=== PATIENT | male | born 1980 | race Caucasian/White ===

== ENCOUNTER 2016-11-18 15:25 | Emergency (ER) | payer OTHER ==
[~2016-11-18] VITALS: Ht 154.9 cm; Wt 81.2 kg
[~2016-11-18 15:25] MED LIST: ALBUAER19 INH; BACL10TA PO; ESOM1CAP24 PO; HYDR-5688 PO; LEVO200T6 PO; SYMIN160 INH; VLT/75 PO
[2016-11-18 15:29] VITALS: TEMP 36.8; Ht 154.9 cm; Wt 81.2 kg
[2016-11-18] MEDS ORDERED: XYLOCAINE 1%/SOD BICARB 20 ML VIAL INFIL ONE (16:00)
[2016-11-18] MEDS ORDERED: SULF800T23 PO (16:48)
[2016-11-18] MEDS ORDERED: HYDR-5688 PO (16:48)
--- NOTE | 2016-11-18 16:50 | EMERGENCY ROOM VISIT NOTE ---
ED Visit Note First contact with patient: 15:41 CHIEF COMPLAINT: Infection of the groin HISTORY OF PRESENT ILLNESS: This 36-year-old male patient presents to the emergency department ambulatory complaining of swelling to the right groin 2 days. The patient notes that there is a boil in the right side of the groin. It has been gradually becoming more painful and red. It is slightly hard to touch. There has been no drainage. The patient states that he felt febrile yesterday, but did not take his temperature. There was no injury to the area preceding the infection. They rate the pain as sharp and 7/10. Tetanus shot is up to date. He has tried warm compresses with no relief. The patient is not diabetic. The patient has no history of subcutaneous abscesses. REVIEW OF SYSTEMS: A review of systems was performed with positives and pertinent negatives listed in the history of present illness. All other systems were reviewed and are negative. ALLERGIES: Latex MEDICATIONS: See med list PMH: Hypothyroidism SOCIAL HISTORY: The patient lives locally. PHYSICAL EXAM: Vital Signs: Reviewed Nurse's notes, vital signs stable. GENERAL : This is a 36-year-old male, no acute distress, non toxic in appearance, well- developed well-nourished. SKIN: There is an erythematous indurated area in the right inguinal region which measures about 1.5 cm cm in diameter. It is fluctuant but there is no pointing or drainage. There is a zone of inflammation around it but no lymphangitis. Capillary refill less than 2 seconds. MUSCULOSKELETAL: There is no limitation of the range of motion of the right leg. EMERGENCY DEPARTMENT COURSE: I examined the patient. Verbal consent was obtained to perform the procedure. After saline and Betadine cleansing and four mL of 1% buffered lidocaine anesthesia, the abscess was incised with a number 11 scalpel blade. A small amount of purulent material was released with more expressed by pressure. A swab was obtained for culture. The abscess cavity was further probed with a needle special education bus driver and the deep pocket expressed. The abscess cavity was then copiously irrigated with sterile saline under pressure. The area was then packed with bacitracin soaked packing. The area was cleaned with sterile saline and dressed with bacitracin and a bulky bandage. The patient tolerated the procedure well. He was placed on Bactrim. He was given a short course of Maxwell for pain. The [place] prescription drug monitoring program was queried and no red flags were identified. The patient was discharged home in stable condition. DIAGNOSIS: Abscess of the groin Current/Historical Medications Scheduled Albuterol Inhaler (Ventolin Inhaler), 2 PUFFS INH QID PRN Budesonide/Formoterol Fumarate (Symbicort 160/4.5 Inhaler), 2 PUFF INH BID Esomeprazole Magnesium (Nexium 24Hr), 40 MG PO DAILY Levothyroxine Sodium (Levothyroxine Sodium), 200 MCG PO DAILY Sulfa/Trimethoprim (Bactrim Ds 800MG/160MG), 1 TAB PO BID Scheduled PRN Baclofen (Lioresal), 10 MG PO TID PRN for prn Diclofenac Sod (Diclofenac Sodium Dr), 75 MG PO BID PRN for Pain Hydrocodone/Acetaminophen 5MG/325MG (Maxwell 5MG/325MG), 1-2 TABLET PO Q4H PRN for Pain Allergies Coded Allergies: Latex (Verified Allergy, Severe, HIVES, 07/27/12) HAS SPINA BIFIDA, CAN NOT BE IN CONTACT WITH LATEX Uncoded Allergies: [id number] (Allergy, Severe, HIVES, 05/24/15) Vital Signs Date Time Temp Pulse Resp B/P Pulse Ox O2 Delivery O2 Flow Rate FiO2 11/18/16 15:29 36.8 95 18 131/90 95 Room Air Departure Information Impression Primary Impression: Abscess of groin, right Dispostion Home / Self-Care Condition GOOD Prescriptions Hydrocodone/Acetaminophen 5MG/325MG (Maxwell 5MG/325MG) Tab 1-2 TABLET PO Q4H Y for Pain, #8 TAB For Initial Treatment Prov: Aliyah Grimes PA-C 11/18/16 Sulfa/Trimethoprim (Bactrim Ds 800MG/160MG) Tab 1 TAB PO BID for 7 Days, #14 TAB Prov: Aliyah Grimes PA-C 11/18/16 Referrals Corby Umana D[facility] (PCP) Patient Instructions [facility] Additional Instructions You were seen in the Emergency Department for Incision and Drainage of your groin abscess. You will NEED to return to the Emergency Department to have the packing removed/changed in 48 hours. This packing is NOT dissolvable and WILL need to be removed by a health care provider. Try to leave the packing in place until you return to the Emergency Department. You have been prescribed Maxwell to be used for pain control. This is a narcotic medication. You cannot drive or consume alcohol while on this medicine. This medicine should only be used for pain that cannot be controlled with over-the- counter pain medicines. You were prescribed Bactrim to be taken twice daily. Both of these medications are antibiotics. Stop these medications and contact a medical provider if you were to develop any significant adverse side effects including: wheezing, shortness of breath, passing out, vomiting, or a diffuse rash. Always take antibiotics as directed and COMPLETE the ENTIRE course regardless of the improvement of your symptoms. Proper wound care is essential for adequate wound healing and infection prevention. You can shower and clean the wound with soap and water. Do not scour over the wound. Pat dry with a towel. Do not submerse the wound (i.e. bathe or dish wash) until the sutures have been removed. You can use an antibiotic ointment with a dressing over the wound for the next 3-4 days. After this time you may leave the wound dry and open to the air. If crust develops over the wound you can use a Q-tip to apply a 1:1 peroxide:water solution to clean the wound. Look for signs of infection of the wound including: increased pain, swelling, foul discharge, streaking, or increased temperature. If any of these are noticed you should return to the Emergency Department for further assessment and treatment. As with any laceration you may have received nerve damage to the surrounding tissues. This damage may or may not be permanent. For pain control, you can use the following mgej-lkc-dothdox medicines (if >12 yo): - Regular strength (325mg/tab) Tylenol (acetaminophen) 2 tabs every 4-6 hours as needed. Do not exceed 12 tablets in a 24 hour period. Avoid taking more than 4 grams (4000 mg) of Tylenol per day. This includes any other sources of acetaminophen you may take on a regular basis. - Regular strength (200 mg/tab) Advil (ibuprofen) 1-2 tabs every 4-6 hours as needed. Do not exceed a dose of 3200 mg per day. Return to the emergency department if your symptoms worsen despite treatment course outlined above.
[2016-11-18 17:07] VITALS: BP 116/74; PULSE 81; O2SAT 93
--- NOTE | 2016-11-20 18:12 | Pharmacy Progress Note ---
ED Pharmacist Progress Note Date of Service: Nov 20, 2016. Patient's groin abscess culture finalized today, the culture grew two organisms : CoN Staph as well as corynebacterium species. Sensitivities are not reported for either of these organisms. These organisms may reflect skin stan , however if they are pathogenic the Bactrim he was prescribed may offer adequate coverage, especially after performance of I&D. I attempted to contact the patient twice today for a clinical checkup via phone ([phone]). I wanted to know if he was improving, was the wound still red, painful or draining? If he was improving clinically I would not recommend changing his antibiotic therapy, however if he noticed no improvement, he may need an alternative ABX (ie doxycycline). I left a message with his girlfriend at ~1130 today. I attempted to contact him a 2nd time this evening at ~1800. I left a message asking him to call back on both occasions.
--- NOTE | 2016-11-21 11:45 | Pharmacy Progress Note ---
ED Pharmacist Culture FollowUp Date of Service: Nov 21, 2016. Attempted to contact the patient again, left message asking for return phone call ([phone]) Nov 20, 2016. Patient's groin abscess culture finalized today, the culture grew two organisms : CoN Staph as well as corynebacterium species. Sensitivities are not reported for either of these organisms. These organisms may reflect skin stan , however if they are pathogenic the Bactrim he was prescribed may offer adequate coverage, especially after performance of I&D. I attempted to contact the patient twice today for a clinical checkup via phone ([phone]). I wanted to know if he was improving, was the wound still red, painful or draining? If he was improving clinically I would not recommend changing his antibiotic therapy, however if he noticed no improvement, he may need an alternative ABX (ie doxycycline). I left a message with his girlfriend at ~1130 today. I attempted to contact him a 2nd time this evening at ~1800. I left a message asking him to call back on both occasions.
== END 2016-11-18 17:00 | disposition home or self-care (01) ==
LOC: C.EDB 15:26 → C.EDD 17:00
DX: L02.214 Cutaneous abscess of groin (principal); E03.9 Hypothyroidism, unspecified

== ENCOUNTER → 2017-04-27 | Outpatient (CLI) | payer OTHER ==
[~2017-04-27] MED LIST changes: +ELMCR TOP; +TRAZ50TA35 PO; +VNTHFA/IN INH
== END | disposition home or self-care (01) ==
LOC: C.LABBC 11:16
PROVIDERS: ATTEND Internal Medicine
DX: E03.9 Hypothyroidism, unspecified (principal)

== ENCOUNTER 2017-06-20 11:32 | Emergency (ER) | payer OTHER ==
[~2017-06-20] VITALS: Ht 160 cm; Wt 75.0 kg
[~2017-06-20 11:32] MED LIST changes: -ELMCR TOP; -HYDR-5688 PO; -TRAZ50TA35 PO; -VNTHFA/IN INH
[2017-06-20 11:35] VITALS: TEMP 36.8; Ht 160 cm; Wt 75.0 kg
[2017-06-20] MEDS ORDERED: VNTHFA/IN INH (11:46)
[2017-06-20] MEDS ORDERED: TRAZ50TA35 PO (11:46)
[2017-06-20] MEDS ORDERED: ELMCR TOP (12:32)
[2017-06-20 13:04] VITALS: BP 118/76; PULSE 95; O2SAT 96
--- NOTE | 2017-06-21 06:11 | EMERGENCY ROOM VISIT NOTE ---
ED Visit Note First contact with patient: 12:13 Chief Complaint: I have an itchy rash anything might be scabies. History of Present Illness: Mr. Hinojosa is a 37-year-old male who ambulates into the ED complaining of an itch rash. Patient reports his son was recently diagnosed with scabies. Additionally he reports that his son is in the custody of [facility]. He received notification of his son scabies and was encouraged to be treated for scabies so he could see his child tomorrow. Patient reports approximately 2-3 days ago he started itchy patches of skin on his upper and lower extremities and trunk, excluding his genitalia. The exception of the itchiness he has had no associated symptoms. He has not noticed these patches of itchy skin previously until his son received the diagnosis of scabies. He has not identified any aggravating or alleviating factors related to these patches of skin. He has been using Benadryl for the itching with mild relief. He denies fevers, chills, previous similar skin eruptions, skin color changes, upper respiratory tract symptoms, shortness of breath, abdominal pain, decreased appetite, nausea/vomiting, joint pains, recent animal/insect bites. Review of Systems: As noted above in history of present illness. 8 body systems were reviewed and found to be negative as noted above. Past Medical History: Atopic dermatitis, asthma, bronchitis, spina bifida, hypothyroidism, unspecified eye and ear surgeries. Current Medications: Baclofen, Symbicort, levothyroxine, albuterol, trazodone, diclofenac. Allergies to Medications: Latex. Social History: Patient is not employed; he feels safe in his home environment; he admits to tobacco use and denies alcohol use. Physical Examination: Vital Signs: Date Time Temp Pulse Resp B/P (MAP) Pulse Ox O2 Delivery O2 Flow Rate FiO2 06/20/17 13:04 95 18 118/76 96 06/20/17 11:35 36.8 115 20 116/84 100 Room Air GENERAL: 37-year-old male in no acute distress, nontoxic-appearing, afebrile and hemodynamically stable. NEUROLOGICAL: Awake, alert and oriented to person, place and time. Answering questions appropriately and following commands. SKIN: Warm, dry and pink. Rash: Patient has small irregularly shaped patches of skin that are mildly erythematous or different body parts including his wrist , elbow, feet and lower abdomen. There are no lesions within the small patches of skin. They are flat and do not appear as hives. There is no associated lymphangitis. Erythema portion of the lesion is skin temperature and not hot. There is no fluctuance or induration and the skin does not appear cellulitic. No mites relocated in these areas. There does not appear to be any burrowing. HEENT: Atraumatic and normocephalic. PERRL. Sclera white and conjunctiva pink. Oral cavity moist and pink. Pharynx is nonerythematous or edematous. Speech normal. Trachea midline. No jugular venous distention. THORAX: Lungs sounds are clear to auscultation and equal bilaterally with symmetrical chest wall. No wheezing, rales or rhonchi. ABDOMEN: Flat, soft and nontender. Positive bowel sounds in all quadrants. No guarding, rigidity or organomegaly. EXTREMITIES: Moves all extremities well on command and with purpose. All distal neurovascular statuses are intact and equal bilaterally. No calf tenderness or cords. ED Course: Patient is assessed as noted above. Patient's medication list was reviewed. After lengthy conversation with the patient he felt he needed to be treated for scabies to be able to see his son. Patient was educated about today's findings and instructed on his treatment plan ; he verbalizes understanding and agreement with this plan. Clinical Impression: Rash. Itchy skin. Exposure to scabies. Decision-Making: Initially my differential diagnosis I considered hives, scabies , contact dermatitis, dermatitis from other causes, cellulitis and other causes. Disposition: Patient discharged home in stable condition; prior to departure he was reassessed and still reported he had some mild itchy skin; I did offer him Benadryl and he refused. Plan: Patient was encouraged use 25-50 mg of Benadryl every 6 hours as needed for itchy skin. I did prescribe permethrin cream and instructed on use. Patient was encouraged to change his clothes daily and bed linen daily to avoid scabies infestation. Patient is encouraged to follow-up with primary care provider for recheck. Patient was encouraged return ED for worsening rash, worsening itchy skin or any new/concerning symptoms.
== END 2017-06-20 13:00 | disposition home or self-care (01) ==
LOC: C.EDB 11:34 → C.EDD 13:00
DX: R21 Rash and other nonspecific skin eruption (principal); L29.9 Pruritus, unspecified; Z20.7 Contact with and (suspected) exposure to pediculosis, acariasis and other infestations

== ENCOUNTER 2017-08-30 16:11 | Inpatient (IN) | payer OTHER ==
[~2017-08-30] VITALS: Ht 152.4 cm; Wt 77.2 kg
[~2017-08-30 16:11] MED LIST changes: -ALBUAER19 INH; +ELMCR TOP; -ESOM1CAP24 PO; -LEVO200T6 PO; +TRAZ50TA35 PO; +VNTHFA/IN INH
[2017-08-30] MEDS ORDERED: MAGNESIUM SULFATE 1GM / D5W 1 GM BAG IV STA (16:33)
[2017-08-30] MEDS ORDERED: METHYLPREDNISOLONE 125 MG VIAL IV STA (16:33)
[2017-08-30 16:43] VITALS: PULSE 121; O2SAT 95
[2017-08-30] MEDS: ALBUT/IPRATROP 3MG/0.5MG NEB 3 ML VIAL INH ONE ×2 (16:43→16:46)
[2017-08-30 16:44] VITALS: PULSE 123; O2SAT 95
--- NOTE | 2017-08-30 16:53 | DIAGNOSTIC IMAGING REPORT ---
SINGLE VIEW CHEST CLINICAL HISTORY: Dyspnea. FINDINGS: An AP, portable, upright chest radiograph is compared to study dated 6:15 and 16. The cardiomediastinal silhouette is unremarkable. There is patchy airspace consolidation seen in the left mid to lower lung. Airspace consolidation is also seen at the right lung base. No large pleural effusion or pneumothorax is seen. The bony thorax is grossly intact. IMPRESSION: There is multifocal airspace consolidation identified as above, most confluent at the left lung base. The appearance suggests multifocal pneumonia. Asymmetric pulmonary edema is considered less likely. Clinical correlation will be required and radiographic follow-up to resolution is recommended Electronically signed by: Aldo Souza M.D. 08/30/2017 4:51 PM Dictated Date/Time: 08/30/2017 4:50 PM
[2017-08-30 16:55] LABS: BASO % 0.2 %; BASO ABS # 0.02 K/uL (0-0.2); COMPLETE YES; EOS % 0.1 %; HEMATOCRIT 39.6 % (42-52); IG% 0.4 %; LYMPH % 11.2 %; LYMPH ABS # 1.28 K/uL (1.2-3.4); MEAN CELL VOLUME 87.6 fL (80-100); MEAN CORPUSCULAR HEMOGLOBIN 31.4 pg (25-34); MEAN CORPUSCULAR HGB CONC 35.9 g/dl (32-36); MEAN PLATELET VOLUME 9.1 fL (7.4-10.4); MONO % 18.9 %; NEUT % 69.2 %; PLATELET COUNT 285 K/uL (130-400); RED BLOOD COUNT 4.52 M/uL (4.7-6.1)
[2017-08-30] MEDS ORDERED: LEVAQUIN 750MG / 150ML D5W IV STA (17:15)
[2017-08-30 17:19] LABS: ALT/SGPT 45 U/L (12-78); BLOOD UREA NITROGEN 14 mg/dl (7-18); BUN/CREATININE RATIO 14.1 (10-20); CALCIUM 9.2 mg/dl (8.5-10.1); CARBON DIOXIDE 27 mmol/L (21-32); CHLORIDE 100 mmol/L (98-107); CREATININE 0.97 mg/dl (0.60-1.40); GLUCOSE 112 mg/dl (70-99); MAGNESIUM 2.4 mg/dl (1.8-2.4); POTASSIUM 3.7 mmol/L (3.5-5.1); SODIUM 135 mmol/L (136-145)
[2017-08-30 17:30] LABS: ALB/GLOB RATIO 0.8 (0.9-2); ALKALINE PHOSPHATASE 96 U/L (45-117); AST/SGOT 25 U/L (15-37)
[2017-08-30] MEDS ORDERED: LRS10 PO (17:35)
[2017-08-30] MEDS ORDERED: ALBUT/IPRATROP 3MG/0.5MG NEB 3 ML VIAL INH ONE (18:00)
[2017-08-30 18:12] VITALS: PULSE 124; O2SAT 95
[2017-08-30 18:15] VITALS: PULSE 124; O2SAT 95
[2017-08-30] MEDS ORDERED: LEVO200T6 PO (19:26)
[2017-08-30 19:32] LABS: ARTERIAL BLD GAS O2 SATURATION 96.5 % (90-95); ARTERIAL BLOOD GAS BASE EXCESS 2.7 mEq/L (-9-1.8); ARTERIAL BLOOD GAS HCO3 27 mmol/L (19-24); ARTERIAL BLOOD GAS PO2 85 mm/Hg (80-95); ARTERIAL BLOOD GAS pH 7.44 (7.35-7.45)
[2017-08-30 19:33] LABS: ALLEN TEST POS (POS); O2 ADMINISTRATION 40%
[2017-08-30] MEDS ORDERED: ALBUTEROL 0.083% NEBU SOLN 3 ML VIAL INH PRN (20:00)
[2017-08-30] MEDS ORDERED: ACETAMINOPHEN 325 MG TAB PO PRN (20:00)
[2017-08-30] MEDS ORDERED: ZOLPIDEM TARTRATE 5 MG TAB PO PRN (20:00)
[2017-08-30] MEDS ORDERED: MAGNESIUM HYDROXIDE SUSP 30 ML UDC PO PRN (20:00)
[2017-08-30] MEDS ORDERED: POLYETHYLENE (MIRALAX) 17 GM PACK PO PRN (20:00)
[2017-08-30] MEDS ORDERED: ALUMINUM/MAGNESIUM/SIMETH (MAALOX MAX) 30 ML UDC PO PRN (20:00)
[2017-08-30] MEDS ORDERED: ONDANSETRON INJ 2 MG/ML 2 ML VIAL IV PRN (20:00)
[2017-08-30 20:19] LABS: PARTIAL THROMBOPLASTIN RATIO 1.4; PROTHROMBIN TIME (PATIENT) 11.2 SECONDS (9.0-12.0)
--- NOTE | 2017-08-30 20:19 | EMERGENCY ROOM VISIT NOTE ---
History Report prepared by Omero: Megan York Under the Supervision of: Dr. Marielos Villanueva D.O. First contact with patient: 16:29 Chief Complaint: SHORTNESS OF BREATH Stated Complaint: COLD, SOB, COUGHING History of Present Illness The patient is a 37 year old male who presents to the Emergency Room with complaints of worsening SOB starting 1 week ago. His SOB has slowly been worsening. He has a history of COPD. He has been hospitalized for SOB before, but not put on BiPAP or intubated. He has been using his inhaler to no significant relief. He has been coughing up green sputum which is not normal for him. He has had sick contacts. He denies any history of heart problems or blood clots. He does smoke. He does not take any oral steroids. Source of History: patient Onset: 1 week ago Position: other (global) Quality: other (SOB) Timing: worsening Associated Symptoms: + cough Review of Systems See HPI for pertinent positives & negatives. A total of 10 systems reviewed and were otherwise negative. Past Medical & Surgical Medical Problems: (1) COPD (chronic obstructive pulmonary disease) (2) COPD exacerbation (3) Multifocal pneumonia Family History No pertinent family history stated. Social History Smoking Status: Current Every Day Smoker Alcohol Use: none Marital Status: single Housing Status: lives with family Occupation Status: employed Current/Historical Medications Scheduled Budesonide/Formoterol Fumarate (Symbicort 160/4.5 Inhaler), 2 PUFFS INH BID Diclofenac Sod (Diclofenac Sodium Dr), 75 MG PO DAILY Levothyroxine Sodium (Levothyroxine Sodium), 200 MCG PO DAILY Trazodone Hcl (Trazodone), 50 MG PO HS Scheduled PRN Albuterol Hfa (Ventolin Hfa), 1-2 PUFFS INH Q4-6HRS PRN for SOB/Wheezing Baclofen (Baclofen), 10 MG PO DAILY PRN for Abdominal Pain Allergies Coded Allergies: Latex (Verified Allergy, Severe, HIVES/SHORT OF BREATH, 08/30/17) HAS SPINA BIFIDA, CAN NOT BE IN CONTACT WITH LATEX Pt reports both rash and SOB Latex2 -Systemic Allergic Response (Verified Allergy, Severe, SHORTNESS OF BREATH, 08/30/17) Physical Exam Vital Signs Date Time Temp Pulse Resp B/P (MAP) Pulse Ox O2 Delivery O2 Flow Rate FiO2 08/30/17 19:36 128 95 Room Air 08/30/17 19:31 124/75 08/30/17 19:06 127 30 95 08/30/17 19:01 96/57 08/30/17 18:36 126 32 96 08/30/17 18:31 109/80 96 BiPAP 08/30/17 18:30 127 42 95 08/30/17 18:15 124 34 95 BiPAP/CPAP 40 08/30/17 18:12 124 95 40 08/30/17 17:41 129 38 94 08/30/17 17:31 118/97 08/30/17 17:11 129 40 96 08/30/17 17:10 134/86 08/30/17 16:51 85 Room Air 08/30/17 16:49 97 BiPAP 40 08/30/17 16:47 119 08/30/17 16:44 123 34 95 BiPAP/CPAP 40 08/30/17 16:43 121 95 40 08/30/17 16:21 37.6 36 101/62 84 Room Air Physical Exam GENERAL: alert, speaking in short sentences EYE EXAM: normal conjunctiva, PERRL and EOM's grossly intact OROPHARYNX: no exudate, no erythema, lips, buccal mucosa, and tongue normal and mucous membranes are moist NECK: supple, no nuchal rigidity, no adenopathy, non-tender LUNGS: Bilateral expiratory wheezing. Very diminished breath sounds bilaterally. HEART: no murmurs, S1 normal and S2 normal ABDOMEN: abdomen soft, non-tender, normo-active bowel sounds, no masses, no rebound or guarding. BACK: Back is symmetrical on inspection and there is no deformity, no midline tenderness, no CVA tenderness. SKIN: no rashes and no bruising UPPER EXTREMITIES: upper extremities are grossly normal. LOWER EXTREMITIES: No pitting edema. NEURO EXAM: Normal sensorium, cranial nerves II-XII grossly intact, normal speech, no gross weakness of arms, no gross weakness of legs. Medical Decision & Procedures ER Provider Diagnostic Interpretation: Radiology results have been interpreted by the radiologist and reviewed by me. SINGLE VIEW CHEST CLINICAL HISTORY: Dyspnea. FINDINGS: An AP, portable, upright chest radiograph is compared to study dated 6:15 and 16. The cardiomediastinal silhouette is unremarkable. There is patchy airspace consolidation seen in the left mid to lower lung. Airspace consolidation is also seen at the right lung base. No large pleural effusion or pneumothorax is seen. The bony thorax is grossly intact. IMPRESSION: There is multifocal airspace consolidation identified as above, most confluent at the left lung base. The appearance suggests multifocal pneumonia. Asymmetric pulmonary edema is considered less likely. Clinical correlation will be required and radiographic follow-up to resolution is recommended Electronically signed by: Aldo Souza M.D. 08/30/2017 4:51 PM Dictated Date/Time: 08/30/2017 4:50 PM Laboratory Results Test 08/30/17 16:37 08/30/17 16:44 08/30/17 19:25 Immature Granulocyte % (Auto) 0.4 % White Blood Count 11.40 K/uL (4.8-10.8) Red Blood Count 4.52 M/uL (4.7-6.1) Hemoglobin 14.2 g/dL (14.0-18.0) Hematocrit 39.6 % (42-52) Mean Corpuscular Volume 87.6 fL (80-100) Mean Corpuscular Hemoglobin 31.4 pg (25-34) Mean Corpuscular Hemoglobin Concent 35.9 g/dl (32-36) Platelet Count 285 K/uL (130-400) Mean Platelet Volume 9.1 fL (7.4-10.4) Neutrophils (%) (Auto) 69.2 % Lymphocytes (%) (Auto) 11.2 % Monocytes (%) (Auto) 18.9 % Eosinophils (%) (Auto) 0.1 % Basophils (%) (Auto) 0.2 % Neutrophils # (Auto) 7.90 K/uL (1.4-6.5) Lymphocytes # (Auto) 1.28 K/uL (1.2-3.4) Monocytes # (Auto) 2.15 K/uL (0.11-0.59) Eosinophils # (Auto) 0.01 K/uL (0-0.5) Basophils # (Auto) 0.02 K/uL (0-0.2) Immature Granulocyte # (Auto) 0.04 K/uL (0.00-0.02) Prothrombin Time 11.2 SECONDS (9.0-12.0) Prothromb Time International Ratio 1.0 (0.9-1.1) Activated Partial Thromboplast Time 35.7 SECONDS (21.0-31.0) Partial Thromboplastin Ratio 1.4 Total Bilirubin 0.5 mg/dl (0.2-1) Aspartate Amino Transf (AST/SGOT) 25 U/L (15-37) Alanine Aminotransferase (ALT/SGPT) 45 U/L (12-78) Alkaline Phosphatase 96 U/L (45-117) Troponin I < 0.015 ng/ml (0-0.045) Total Protein 8.3 gm/dl (6.4-8.2) Albumin 3.6 gm/dl (3.4-5.0) Globulin 4.7 gm/dl (2.5-4.0) Albumin/Globulin Ratio 0.8 (0.9-2) Thyroid Stimulating Hormone (TSH) 3.340 uIu/ml (0.300-4.500) Influenza Type A Antigen Neg for Influ A (NEG) Influenza Type B Antigen Neg for Influ B (NEG) Bedside Lactic Acid Venous 1.06 mmol/L (0.90-1.70) Arterial Blood pH 7.44 (7.35-7.45) Arterial Blood Partial Pressure CO2 41 mmHg (35-46) Arterial Blood Partial Pressure O2 85 mm/Hg (80-95) Arterial Blood HCO3 27 mmol/L (19-24) Arterial Blood Oxygen Saturation 96.5 % (90-95) Arterial Blood Base Excess 2.7 mEq/L (-9-1.8) Arterial Blood Gas Delivery 40% Rinku Test POS (POS) Laboratory results per my review. Medications Administered Medications (Trade) Dose Ordered Sig/Linette Route Start Time Stop Time Status Last Admin Dose Admin Albuterol/ Ipratropium (Duoneb) 12 ml ONE ONCE INH 08/30/17 16:45 08/30/17 16:46 DC 08/30/17 16:46 12 ML Methylprednisolone Sodium Succinate (Solu-Medrol IV) 125 mg NOW STAT IV 08/30/17 16:33 08/30/17 16:35 DC 08/30/17 17:07 125 MG Magnesium Sulfate (Magnesium Sulfate) 2 gm NOW STAT IV 08/30/17 16:33 08/30/17 16:35 DC 08/30/17 17:07 2 GM Levofloxacin (Levaquin / D5W) 750 mg NOW STAT IV 08/30/17 17:15 11/9/17 17:17 DC 08/30/17 18:07 750 MG Albuterol/ Ipratropium (Duoneb) 12 ml ONE ONCE INH 08/30/17 18:00 08/30/17 18:03 DC 08/30/17 18:07 12 ML ECG Indication: SOB/dyspnea Rate (beats per minute): 127 Rhythm: sinus tachycardia Findings: no acute ischemic change, other (normal axis, normal intervals) ED Course 1630: The patient was evaluated in room C4. A complete history and physical exam was performed. 1633: Magnesium Sulfate 2 gm IV, Solu-Medrol IV 125 mg IV. 1645: Duoneb 12 ml INH. 1702: I reevaluated the patient. He is on BiPAP now. He is still tachypneic with increased work of breathing. He is able to relax slightly in bed now. He is on nebulizer. 1715: Levofloxacin 750 mg IV. 1750: I reevaluated the patient. He is still tachypneic and tachycardic. He says that he feels a little better. 1800: Duoneb 12 ml INH. 1844: I reevaluated the patient. He is feeling better. He appears to be improving. Breath sounds are still coarse bilaterally with scattered expiratory wheezing. He is still tachycardic. I discussed the findings and the treatment plan with the patient. He expresses agreement and understanding. He will be evaluated for further management. 2002: I reviewed the patient's case with Dr. Damon, [facility] hospitalist. He will evaluate the patient for further management. Medical Decision Differential diagnoses includes but is not limited to pneumonia, bronchitis, COPD/Asthma exacerbation, pneumothorax, pulmonary embolism, congestive heart failure, acute coronary syndrome Patient here presenting very short of breath requiring immediate use of BiPAP, continuous nebulizers, and other medications. Following to hour-long nebulizer treatments, patient finally began to report improvement. Patient's blood gas reassuring. Patient found on x-ray to have bilateral pneumonia. Patient had blood cultures drawn and was started on antibiotics. No recent travel or additional exposures per patient. He does admit to continued smoking. Likely this is contributing to his underlying COPD, risk for pneumonia, and worsening trouble breathing. Doubt bacteremia/sepsis. Patient's vital signs otherwise stable patient persistently tachycardic into Although improved following use of BiPAP and nebulizer treatments. Patient given steroids as well as magnesium. I do not suspect ACS, congestive heart failure, PE, tamponade contributing the patient's dyspnea. Medication Reconcilliation Current Medication List: was personally reviewed by me Blood Pressure Screening Patient's blood pressure: Normal blood pressure Blood pressure disposition: Did not require urgent referral Consults Time Called: 1928 Consulting Physician: Dr. Damon, [facility] hospitalist Returned Call: 2002 I reviewed the patient's case with him. He will evaluate the patient for further management. Impression Primary Impression: Dyspnea Additional Impressions: Bilateral pneumonia COPD exacerbation Critical Care I have personally spent greater than 45 minutes of critical care time in the direct management of this patient. This includes bedside care, interpretation of diagnostic studies, and testing, discussion with consultants, patient, and family members, and other required patient management activities. This 45 minutes is in excess of all separately billable procedures. Scribe Attestation The scribe's documentation has been prepared under my direction and personally reviewed by me in its entirety. I confirm that the note above accurately reflects all work, treatment, procedures, and medical decision making performed by me. Departure Information Dispostion Being Evaluated By Hospitalist Referrals No Doctor, Assigned (PCP) Patient Instructions [facility] Problem Qualifiers Primary Impression: Dyspnea Dyspnea type: shortness of breath Qualified Codes: R06.02 - Shortness of breath Additional Impressions: Bilateral pneumonia Pneumonia type: due to unspecified organism Lung location: unspecified part of lung Qualified Codes: J18.9 - Pneumonia, unspecified organism
[2017-08-30 20:38] VITALS: Ht 152.4 cm; Wt 77.2 kg
[2017-08-30 20:45] VITALS: BP 115/72; PULSE 116; TEMP 36.7; O2SAT 91
[2017-08-30] MEDS: ALBUT/IPRATROP 3MG/0.5MG NEB 3 ML VIAL INH SCH (21:00)
[2017-08-30] MEDS: METHYLPREDNISOLONE IV 60 MG in SYRINGE 0 ML IV SCH (21:00)
[2017-08-30] MEDS ORDERED: PNEUMOCOCCAL POLYSACCHARIDES 25 MCG/0.5 ML VIAL/SYR IM. ONE (21:15)
[2017-08-30] MEDS ORDERED: INFLUENZA VIRUS QUAD VACCINE 0.5 ML SYR IM. ONE (21:15)
[2017-08-30] MEDS ORDERED: PNEUMOCOCCAL ADMINISTRATION CHARGE ONE (21:15)
[2017-08-30] MEDS ORDERED: INFLUENZA ADMINISTRATION CHARGE ONE (21:15)
--- NOTE | 2017-08-30 21:22 | History and Physical ---
History & Physical Date & Time of Service: Aug 30, 2017 at 21:12 Chief Complaint: Copd Exacerbation, Multifocal Pneumonia Primary Care Physician: No Doctor, Assigned History of Present Illness Source: patient 37 y/o M Hx spina bifida, COPD diagnosed at age 18, heavy smoker. Presents with progressive SOB, productive cough, wheezing and probable fevers. His symptoms began approximately 2 days ago. A CXR exemplifies multifocal pneumonia. 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 5) Chronic cervicalgia Family History Denies any significant family history Social History Smokes 1.5-2 packs daily - does not drink - on disability due to his spinal condition Smoking Status: Current Every Day Smoker Marital Status: single Housing status: lives with family Occupational Status: employed Immunizations History of Influenza Vaccine: No History of Tetanus Vaccine?: Yes History of Pneumococcal: No History of Hepatitis B Vaccine: No Allergies Coded Allergies: Latex (Verified Allergy, Severe, HIVES/SHORT OF BREATH, 08/30/17) HAS SPINA BIFIDA, CAN NOT BE IN CONTACT WITH LATEX Pt reports both rash and SOB Latex2 -Systemic Allergic Response (Verified Allergy, Severe, SHORTNESS OF BREATH, 08/30/17) Home Medications Scheduled Budesonide/Formoterol Fumarate (Symbicort 160/4.5 Inhaler), 2 PUFFS INH BID Diclofenac Sod (Diclofenac Sodium Dr), 75 MG PO DAILY Levothyroxine Sodium (Levothyroxine Sodium), 200 MCG PO DAILY Trazodone Hcl (Trazodone), 50 MG PO HS Scheduled PRN Albuterol Hfa (Ventolin Hfa), 1-2 PUFFS INH Q4-6HRS PRN for SOB/Wheezing Baclofen (Baclofen), 10 MG PO DAILY PRN for Abdominal Pain Review of Systems Constitutional: + fever, No chills, No sweats Eyes: No worsening of vision ENT: + hearing loss (chronic hearing loss left ear), No unusual epistaxis, No nasal symptoms Respiratory: + cough, + sputum, + wheezing, + shortness of breath Cardiovascular: No chest pain Abdomen: No pain, No nausea, No vomiting Musculoskeletal: No joint pain Genitourinary - Male: No hematuria, No dysuria, No urinary frequency Neurologic: No memory loss, No paralysis, No weakness Psychiatric: No depression symptoms Endocrine: No fatigue Hematologic / Lymphatic: No abnormal bleeding/bruising Integumentary: No rash Allergic / Immunologic: No environmental allergies Physical Exam Vital Signs Date Time Temp Pulse Resp B/P (MAP) Pulse Ox O2 Delivery O2 Flow Rate FiO2 08/30/17 20:38 BiPAP 40 08/30/17 20:19 120 32 128/89 96 08/30/17 19:36 128 95 Room Air 08/30/17 19:31 124/75 08/30/17 19:06 127 30 95 08/30/17 19:01 96/57 08/30/17 18:36 126 32 96 08/30/17 18:31 109/80 96 BiPAP 08/30/17 18:30 127 42 95 08/30/17 18:15 124 34 95 BiPAP/CPAP 40 08/30/17 18:12 124 95 40 08/30/17 17:41 129 38 94 08/30/17 17:31 118/97 08/30/17 17:11 129 40 96 08/30/17 17:10 134/86 08/30/17 16:51 85 Room Air 08/30/17 16:49 97 BiPAP 40 08/30/17 16:47 119 08/30/17 16:44 123 34 95 BiPAP/CPAP 40 08/30/17 16:43 121 95 40 08/30/17 16:21 37.6 36 101/62 84 Room Air General Appearance: WD/WN, no apparent distress Head: normocephalic Eyes: normal inspection ENT: normal ENT inspection, pharynx normal Neck: supple, no adenopathy, no JVD Respiratory/Chest: chest non-tender, no respiratory distress, + decreased breath sounds, + accessory muscle use, + pertinent finding (No clear wheezing - poor air moveemnt) Cardiovascular: regular rate, rhythm, no edema Abdomen/GI: normal bowel sounds, non tender, soft Back: normal inspection, no CVA tenderness, + pertinent finding ( Kyphoscoliosis present) Extremities/Musculoskelatal: normal inspection, no calf tenderness, normal capillary refill, no pedal edema, normal range of motion Neurologic/Psych: 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 II-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 as tested, no motor/sensory deficits, alert, oriented x 3 Skin: normal color Diagnostics Laboratory Results Results Past 24 Hours Test 08/30/17 16:37 08/30/17 16:44 08/30/17 19:25 Range/Units White Blood Count 11.40 4.8-10.8 K/uL Red Blood Count 4.52 4.7-6.1 M/uL Hemoglobin 14.2 14.0-18.0 g/dL Hematocrit 39.6 42-52 % Mean Corpuscular Volume 87.6 80-100 fL Mean Corpuscular Hemoglobin 31.4 25-34 pg Mean Corpuscular Hemoglobin Concent 35.9 32-36 g/dl Platelet Count 285 130-400 K/uL Mean Platelet Volume 9.1 7.4-10.4 fL Neutrophils (%) (Auto) 69.2 % Lymphocytes (%) (Auto) 11.2 % Monocytes (%) (Auto) 18.9 % Eosinophils (%) (Auto) 0.1 % Basophils (%) (Auto) 0.2 % Neutrophils # (Auto) 7.90 1.4-6.5 K/uL Lymphocytes # (Auto) 1.28 1.2-3.4 K/uL Monocytes # (Auto) 2.15 0.11-0.59 K/uL Eosinophils # (Auto) 0.01 0-0.5 K/uL Basophils # (Auto) 0.02 0-0.2 K/uL RDW Standard Deviation 40.4 36.4-46.3 fL RDW Coefficient of Variation 12.5 11.5-14.5 % Immature Granulocyte % (Auto) 0.4 % Immature Granulocyte # (Auto) 0.04 0.00-0.02 K/uL Prothrombin Time 11.2 9.0-12.0 SECONDS Prothromb Time International Ratio 1.0 0.9-1.1 Activated Partial Thromboplast Time 35.7 21.0-31.0 SECONDS Partial Thromboplastin Ratio 1.4 Sodium Level 135 136-145 mmol/L Potassium Level 3.7 3.5-5.1 mmol/L Chloride Level 100 98-107 mmol/L Carbon Dioxide Level 27 21-32 mmol/L Anion Gap 8.0 3-11 mmol/L Blood Urea Nitrogen 14 7-18 mg/dl Creatinine 0.97 0.60-1.40 mg/dl Est Creatinine Clear Calc Drug Dose 79.4 ml/min Estimated GFR () 114.3 Estimated GFR (Non- 98.6 BUN/Creatinine Ratio 14.1 10-20 Random Glucose 112 70-99 mg/dl Calcium Level 9.2 8.5-10.1 mg/dl Magnesium Level 2.4 1.8-2.4 mg/dl Total Bilirubin 0.5 0.2-1 mg/dl Aspartate Amino Transf (AST/SGOT) 25 15-37 U/L Alanine Aminotransferase (ALT/SGPT) 45 12-78 U/L Alkaline Phosphatase 96 45-117 U/L Troponin I < 0.015 0-0.045 ng/ml Total Protein 8.3 6.4-8.2 gm/dl Albumin 3.6 3.4-5.0 gm/dl Globulin 4.7 2.5-4.0 gm/dl Albumin/Globulin Ratio 0.8 0.9-2 Thyroid Stimulating Hormone (TSH) 3.340 0.300-4.500 uIu/ml Influenza Type A Antigen Neg for Influ A NEG Influenza Type B Antigen Neg for Influ B NEG Bedside Lactic Acid Venous 1.06 0.90-1.70 mmol/L Arterial Blood pH 7.44 7.35-7.45 Arterial Blood Partial Pressure CO2 41 35-46 mmHg Arterial Blood Partial Pressure O2 85 80-95 mm/Hg Arterial Blood HCO3 27 19-24 mmol/L Arterial Blood Oxygen Saturation 96.5 90-95 % Arterial Blood Base Excess 2.7 -9-1.8 mEq/L Arterial Blood Gas Delivery 40% Rinku Test POS POS Microbiology Results 08/30/17 Blood Culture, Received Pending 08/30/17 Blood Culture, Received Pending Diagnostic Radiology Multifocal PNM on CXR Impression Assessment and Plan 37 y/o M Hx spina bifida, COPD diagnosed at age 18, heavy smoker. Presents with progressive SOB, productive cough, wheezing and probable fevers. His symptoms began approximately 2 days ago. A CXR exemplifies multifocal pneumonia. 1) Multifocal pneumonia - Probable COPD exacerbation - Pt placed on Levaquin, Duonebs, Albuterol, IV Steroids, 02 protocol. Sputum culture is pending. 2) Spina bifida - he currently requires only Baclofen to control his symptoms - he has previously received steroid injections - can f/u as outpt 3) Tobacco abuse - initially told me he quit but this happened 3 days ago when he began to feel ill - smoking cessation advice should be offered prior to DC. Full code - Heparin prophylaxis Total time for this admit including review of labs, meds, records, imaging - discussion with pt and ER attending - 38 min Level of Care Med/Surg Advanced Directives Existing Living Will: No Existing Power of Bingo Caller: No Resuscitation Status FULL RESUSCITATION VTE Prophylaxis VTE Risk Assessment Done? Y/N: Yes Risk Level: Low Given or contraindicated: Unfractionated heparin SQ
[2017-08-30] MEDS: HEPARIN SOD 5000 UNIT/0.5 ML CARP SQ SCH (22:44)
[2017-08-30] MEDS: TRAZODONE HCL 50 MG TAB PO SCH (22:45)
[2017-08-31] VITALS (10 sets, daily range): BP systolic 98–128; BP diastolic 65–80; PULSE 82–113; TEMP 36.3–36.9; O2SAT 60–94
[2017-08-31] MEDS: ALBUT/IPRATROP 3MG/0.5MG NEB 3 ML VIAL INH SCH ×4 (03:00→19:36)
[2017-08-31] MEDS: METHYLPREDNISOLONE IV 60 MG in SYRINGE 0 ML IV SCH ×4 (05:16→21:36)
[2017-08-31] MEDS: LEVOTHYROXINE 200 MCG TAB PO SCH (05:37)
[2017-08-31] MEDS: HEPARIN SOD 5000 UNIT/0.5 ML CARP SQ SCH ×3 (05:38→21:42)
[2017-08-31 06:08] LABS: HEMATOCRIT 37.8 % (42-52); MEAN CELL VOLUME 88.1 fL (80-100); MEAN CORPUSCULAR HEMOGLOBIN 30.5 pg (25-34); MEAN CORPUSCULAR HGB CONC 34.7 g/dl (32-36); MEAN PLATELET VOLUME 9.3 fL (7.4-10.4); PLATELET COUNT 273 K/uL (130-400); RED BLOOD COUNT 4.29 M/uL (4.7-6.1); WHITE BLOOD COUNT 8.24 K/uL (4.8-10.8)
[2017-08-31 06:44] LABS: BUN/CREATININE RATIO 18.8 (10-20); CALCIUM 9.4 mg/dl (8.5-10.1); CREATININE 0.85 mg/dl (0.60-1.40); POTASSIUM 3.8 mmol/L (3.5-5.1)
[2017-08-31] MEDS: BUDESONIDE/FORMOTEROL FUMARATE 160/4.5 60 PUFFS/INHALER INH SCH ×2 (07:57→21:37)
[2017-08-31] MEDS: DICLOFENAC SOD EC 75 MG TABCR PO SCH (07:58)
[2017-08-31] MEDS ORDERED: PANTOprazole SOD 40 MG TAB PO ONE (09:45)
[2017-08-31] MEDS ORDERED: ALBUTEROL 0.083% NEBU SOLN 3 ML VIAL INH PRN (10:15)
[2017-08-31] MEDS ORDERED: OPTIRAY 320 IV PRN (11:15)
--- NOTE | 2017-08-31 13:44 | DIAGNOSTIC IMAGING REPORT ---
CT ANGIOGRAM OF THE CHEST CLINICAL HISTORY: Hypoxia. Tachypnea. COMPARISON STUDY: Chest x-ray dated 08/30/2017. TECHNIQUE: Following the IV administration of 95 cc of Optiray 320, CT angiogram of the chest was performed from the upper abdomen to the thoracic inlet utilizing the pulmonary embolus protocol. Images are reviewed in the axial, sagittal, and coronal planes. 3-D MIPS images are created and assessed. IV contrast was administered without complication. A dose lowering technique was utilized adhering to the principles of ALARA. The examination is degraded by motion artifact. CT DOSE: 277.36 mGy.cm FINDINGS: Thyroid: Atrophic. Thoracic aorta: The thoracic aorta is normal in caliber and demonstrates 4-vessel variant arch anatomy. No dissection is seen. Pulmonary vasculature: The pulmonary trunk is normal in caliber. There are no filling defects identified in main, lobar, or proximal segmental pulmonary branches to suggest pulmonary embolus. Evaluation of the peripheral vessels is degraded by motion artifact. Heart: The heart is top normal in size and without pericardial effusion. Lungs and pleural spaces: Evaluation of the lung parenchyma is significant degraded by motion artifact. There is diffuse tree-in-bud nodularity with mild associated groundglass change. More focal consolidation is seen in the right middle lobe and lingula. The trachea and central airways are grossly clear. No pleural effusion is seen. Mediastinum: There is no mediastinal lymphadenopathy. Kiki: Prominent right hilar nodes measure up to 1.1 cm in short axis. Axillae: There is no axillary lymphadenopathy. Upper abdomen: Partially visualized upper abdominal viscera is within normal limits. Skeletal structures: No lytic or blastic bony lesions are seen. IMPRESSION: 1. Significantly motion compromised examination. 2. There is no evidence of central pulmonary embolus in the main, lobar, or proximal segmental pulmonary arteries. The peripheral vessels are not well assessed. 3. There is diffuse tree-in-bud nodularity with associated groundglass change seen throughout both lungs, likely representing an infectious/inflammatory pneumonitis. This may represent atypical infection. Follow-up chest CT in 2-3 months time is recommended to document resolution. 4. More focal airspace consolidation in the right middle lobe and lingula tibia on an infectious basis or represent atelectasis. 5. No pleural effusion is identified. Electronically signed by: Aldo Souza M.D. 08/31/2017 1:43 PM Dictated Date/Time: 08/31/2017 1:37 PM
--- NOTE | 2017-08-31 13:47 | Hospitalist Progress Note ---
Hospitalist Progress Note Date of Service Aug 31, 2017. Subjective Pt evaluation today including: conversation w/ patient, physical exam, lab review, review of studies, review of inpatient medication list Voiding: no voiding problems Patient sitting up in bed. Visibly short of breath. States he feels improved since admission. Admits to body aches, but improved after taking Synthroid. He has not taken his medication in about 1 week since being sick. TSH checked yesterday, WNL. +SOB. +Cough with sputum production. Eating and drinking OK. Admits to daily smoking. Patient denies any fever, chills, sweats, lightheadedness, dizziness, vision changes, CP, palpitations, edema, abdominal pain, nausea, vomiting, diarrhea, urinary symptoms, melena, numbness/tingling, weakness, muscle/joint pain, anxiety/depression, active bleeding, or new skin discoloration/changes. Medications Current Inpatient Medications Medications (Trade) Dose Ordered Sig/Linette Route Start Time Stop Time Status Last Admin Dose Admin Heparin Sodium (Porcine) (Heparin Sq 5000 Unit/0.5ml) 5,000 unit Q8H SQ 08/30/17 22:00 09/29/17 21:59 08/31/17 05:38 5,000 UNIT Acetaminophen (Tylenol Tab) 650 mg Q4H PRN PO 08/30/17 20:00 09/29/17 19:59 Al Hydrox/Mg Hydrox/Simethicone (Maalox Max Susp) 15 ml Q4H PRN PO 08/30/17 20:00 09/29/17 19:59 Magnesium Hydroxide (Milk Of Magnesia Susp) 30 ml Q6H PRN PO 08/30/17 20:00 09/29/17 19:59 Polyethylene (Miralax Powder Packet) 17 gm DAILY PRN PO 08/30/17 20:00 09/29/17 19:59 Ondansetron HCl (Zofran Inj) 4 mg Q6H PRN IV 08/30/17 20:00 09/29/17 19:59 Albuterol/ Ipratropium (Duoneb) 3 ml Q6R INH 08/30/17 21:00 09/29/17 20:59 08/31/17 07:46 3 ML Levofloxacin 750 mg/Prmx 150 ml @ 100 mls/hr Q24H IV 08/31/17 18:00 09/06/17 17:59 Methylprednisolone Sodium Succinate 60 mg/Syringe 0.96 ml @ 1.5 mls/min Q6H IV 08/30/17 22:00 09/29/17 21:59 08/31/17 10:03 1.5 MLS/MIN Baclofen (Lioresal Tab) 10 mg DAILY PRN PO 08/30/17 21:45 09/29/17 21:44 Budesonide/ Formoterol Fumarate (Symbicort 160/ 4.5 Inh) 2 puffs BID INH 08/31/17 08:00 09/30/17 07:59 08/31/17 07:57 2 PUFFS Diclofenac Sodium (Voltaren Tab) 75 mg DAILY PO 08/31/17 08:00 09/30/17 07:59 08/31/17 07:58 75 MG Levothyroxine Sodium (Synthroid Tab) 200 mcg DAILYBB PO 08/31/17 06:30 09/30/17 06:29 08/31/17 05:37 200 MCG Trazodone HCl (Desyrel Tab) 50 mg HS PO 08/30/17 22:00 09/29/17 21:59 08/30/17 22:45 50 MG Pantoprazole Sodium (Protonix Tab) 40 mg QAM PO 09/01/17 08:00 10/01/17 07:59 Albuterol Sulfate (Ventolin 0.083% 2.5MG/3ML Neb) 2.5 mg Q2R PRN INH 08/31/17 10:15 09/29/17 19:59 Ioversol (Optiray 320) 100 ml UD PRN IV 08/31/17 11:15 09/04/17 11:14 Objective Vital Signs Date Time Temp Pulse Resp B/P (MAP) Pulse Ox O2 Delivery O2 Flow Rate FiO2 08/31/17 09:43 111 30 90 Nasal Cannula 6.0 08/31/17 08:00 Nasal Cannula 5.0 08/31/17 07:57 36.3 82 18 98/65 (76) 92 2.0 08/31/17 07:47 113 26 60 Nasal Cannula 6.0 08/31/17 00:30 94 Nasal Cannula 5.0 08/30/17 20:45 36.7 116 28 115/72 (86) 91 Nasal Cannula 5.0 08/30/17 20:38 BiPAP 40 08/30/17 20:19 120 32 128/89 96 08/30/17 19:36 128 95 Room Air 08/30/17 19:31 124/75 08/30/17 19:06 127 30 95 08/30/17 19:01 96/57 08/30/17 18:36 126 32 96 08/30/17 18:31 109/80 96 BiPAP 08/30/17 18:30 127 42 95 08/30/17 18:15 124 34 95 BiPAP/CPAP 40 08/30/17 18:12 124 95 40 08/30/17 17:41 129 38 94 08/30/17 17:31 118/97 08/30/17 17:11 129 40 96 08/30/17 17:10 134/86 08/30/17 16:51 85 Room Air 08/30/17 16:49 97 BiPAP 40 08/30/17 16:47 119 08/30/17 16:44 123 34 95 BiPAP/CPAP 40 08/30/17 16:43 121 95 40 08/30/17 16:21 37.6 36 101/62 84 Room Air Physical Exam General Appearance: + mild distress, + pertinent finding (O2 NC ) Eyes: PERRL ENT: hearing grossly normal Neck: supple Respiratory/Chest: no respiratory distress, no accessory muscle use, + decreased breath sounds (throughout ), + wheezing (expiratory wheeze throughout ), + pertinent finding (course breath sounds throughout ) Abdomen: normal bowel sounds, non tender, soft Extremities: no pedal edema, no calf tenderness Neurologic/Psychiatric: alert, normal mood/affect, oriented x 3 Skin: normal color, warm/dry, no rash Laboratory Results Last 24 Hours Test 08/30/17 16:37 08/30/17 16:44 08/30/17 19:25 08/31/17 05:42 White Blood Count 11.40 K/uL 8.24 K/uL Red Blood Count 4.52 M/uL 4.29 M/uL Hemoglobin 14.2 g/dL 13.1 g/dL Hematocrit 39.6 % 37.8 % Mean Corpuscular Volume 87.6 fL 88.1 fL Mean Corpuscular Hemoglobin 31.4 pg 30.5 pg Mean Corpuscular Hemoglobin Concent 35.9 g/dl 34.7 g/dl Platelet Count 285 K/uL 273 K/uL Mean Platelet Volume 9.1 fL 9.3 fL Neutrophils (%) (Auto) 69.2 % Lymphocytes (%) (Auto) 11.2 % Monocytes (%) (Auto) 18.9 % Eosinophils (%) (Auto) 0.1 % Basophils (%) (Auto) 0.2 % Neutrophils # (Auto) 7.90 K/uL Lymphocytes # (Auto) 1.28 K/uL Monocytes # (Auto) 2.15 K/uL Eosinophils # (Auto) 0.01 K/uL Basophils # (Auto) 0.02 K/uL RDW Standard Deviation 40.4 fL 40.8 fL RDW Coefficient of Variation 12.5 % 12.7 % Immature Granulocyte % (Auto) 0.4 % Immature Granulocyte # (Auto) 0.04 K/uL Prothrombin Time 11.2 SECONDS Prothromb Time International Ratio 1.0 Activated Partial Thromboplast Time 35.7 SECONDS Partial Thromboplastin Ratio 1.4 Sodium Level 135 mmol/L 137 mmol/L Potassium Level 3.7 mmol/L 3.8 mmol/L Chloride Level 100 mmol/L 101 mmol/L Carbon Dioxide Level 27 mmol/L 28 mmol/L Anion Gap 8.0 mmol/L 8.0 mmol/L Blood Urea Nitrogen 14 mg/dl 16 mg/dl Creatinine 0.97 mg/dl 0.85 mg/dl Est Creatinine Clear Calc Drug Dose 79.4 ml/min 90.6 ml/min Estimated GFR () 114.3 128.1 Estimated GFR (Non- 98.6 110.5 BUN/Creatinine Ratio 14.1 18.8 Random Glucose 112 mg/dl 146 mg/dl Calcium Level 9.2 mg/dl 9.4 mg/dl Magnesium Level 2.4 mg/dl 3.0 mg/dl Total Bilirubin 0.5 mg/dl Aspartate Amino Transf (AST/SGOT) 25 U/L Alanine Aminotransferase (ALT/SGPT) 45 U/L Alkaline Phosphatase 96 U/L Troponin I < 0.015 ng/ml Total Protein 8.3 gm/dl Albumin 3.6 gm/dl Globulin 4.7 gm/dl Albumin/Globulin Ratio 0.8 Thyroid Stimulating Hormone (TSH) 3.340 uIu/ml Influenza Type A Antigen Neg for Influ A Influenza Type B Antigen Neg for Influ B Bedside Lactic Acid Venous 1.06 mmol/L Arterial Blood pH 7.44 Arterial Blood Partial Pressure CO2 41 mmHg Arterial Blood Partial Pressure O2 85 mm/Hg Arterial Blood HCO3 27 mmol/L Arterial Blood Oxygen Saturation 96.5 % Arterial Blood Base Excess 2.7 mEq/L Arterial Blood Gas Delivery 40% Rinku Test POS Test 08/31/17 10:28 D-Dimer 550 ug/L FEU Assessment and Plan 37 y/o M Hx spina bifida, COPD diagnosed at age 18, heavy smoker. Presents with progressive SOB, productive cough, wheezing and probable fevers. His symptoms began approximately 2 days ago. A CXR exemplifies multifocal pneumonia. Sepsis from multifocal PNA w/ acute on chronic COPD exacerbation: - Admitted to med/surg- transfer to tele due to tachycardia and hypoxia - O2 protocol, wean as tolerated - IV Levaquin- started on 08/30 - IV Solu-Medrol 60 mg q6 hrs - DuoNebs QID and q2 hrs PRN - Continue Symbicort - Sputum cultures and BCx pending - D-dimer elevated, CTA for PE negative - Leukocytosis- RESOLVED Hypermagnesemia, likely secondary to IV 2 gm Mag supplement received in ED: Follow mag level Spina bifida: Continue Baclofen 10 mg PRN Hypothyroidism: Continue Synthroid 200 mcg daily Tobacco abuse: Smoking cessation counselling GI prophylaxis: Protonix 40 mg daily DVT prophylaxis: Heparin SQ TID Code Status: LEVEL I, FULL Dispo: From home- discharge uncertain at this time- no discharge needs anticipated
[2017-08-31] MEDS: LEVOFLOXACIN / D5W 750 MG in PREMIXED IN D5W 150 ML IV SCH (17:34)
[2017-08-31] MEDS: TRAZODONE HCL 50 MG TAB PO SCH (21:37)
[2017-09-01] VITALS (14 sets, daily range): BP systolic 95–127; BP diastolic 51–72; PULSE 62–104; TEMP 36.5–37; O2SAT 91–98
[2017-09-01] MEDS: ALBUT/IPRATROP 3MG/0.5MG NEB 3 ML VIAL INH SCH ×4 (01:42→19:08)
[2017-09-01] MEDS: METHYLPREDNISOLONE IV 60 MG in SYRINGE 0 ML IV SCH ×4 (04:00→21:35)
[2017-09-01] MEDS: LEVOTHYROXINE 200 MCG TAB PO SCH (05:52)
[2017-09-01] MEDS: HEPARIN SOD 5000 UNIT/0.5 ML CARP SQ SCH ×3 (05:53→21:36)
[2017-09-01 07:06] LABS: BUN/CREATININE RATIO 22.8 (10-20); CALCIUM 8.9 mg/dl (8.5-10.1); MAGNESIUM 2.6 mg/dl (1.8-2.4); POTASSIUM 3.8 mmol/L (3.5-5.1)
[2017-09-01] MEDS: PANTOprazole SOD 40 MG TAB PO SCH (07:19)
[2017-09-01] MEDS: DICLOFENAC SOD EC 75 MG TABCR PO SCH (07:19)
[2017-09-01] MEDS: BUDESONIDE/FORMOTEROL FUMARATE 160/4.5 60 PUFFS/INHALER INH SCH ×2 (07:19→21:35)
[2017-09-01] MEDS ORDERED: GUAIFENESIN/CODEINE 200MG/20MG 10ML UDC PO PRN (10:00)
[2017-09-01 10:40] LABS: ALLEN TEST POS (POS); ARTERIAL BLD GAS O2 SATURATION 92.4 % (90-95); ARTERIAL BLOOD GAS BASE EXCESS 4.8 mEq/L (-9-1.8); ARTERIAL BLOOD GAS HCO3 29 mmol/L (19-24); ARTERIAL BLOOD GAS PO2 67 mm/Hg (80-95); ARTERIAL BLOOD GAS pH 7.46 (7.35-7.45); O2 ADMINISTRATION 6L
--- NOTE | 2017-09-01 12:25 | DIAGNOSTIC IMAGING REPORT ---
CHEST ONE VIEW PORTABLE CLINICAL HISTORY: 37 years-old Male presenting with pneumonia. TECHNIQUE: Portable upright AP view of the chest was obtained. COMPARISON: 08/30/2017. FINDINGS: Cardiomediastinal silhouette normal. Prominent pulmonary vasculature. Vague perihilar opacities as well as stable to slight decrease in basilar opacities. Mildly low lung volumes. No large effusion or pneumothorax. Osseous structures normal. Upper abdomen normal. IMPRESSION: 1. Stable to slight interval decrease in bilateral basilar predominant opacities. Given the presence of prominent pulmonary vasculature in vague perihilar opacities, differential considerations include pulmonary edema versus aspiration/pneumonia. Electronically signed by: Andres Mariee M.D. 09/01/2017 12:24 PM Dictated Date/Time: 09/01/2017 12:22 PM
--- NOTE | 2017-09-01 13:07 | Pulmonary Consultation ---
History General Date of Service: Sep 01, 2017. Stated Complaint: Copd Exacerbation, Multifocal Pneumonia HPI The patient is a 37 year old male who presents to [facility] with complaints of Copd Exacerbation, Multifocal Pneumonia. The patient's primary care provider is No Doctor, Assigned. Mr. Hinojosa is a 37 year old male with asthma since childhood, tobacco use disorder who presents with to ER with one week history of productive cough and shortness of breath. He describes sputum as green in color. He admits to subjective fever, chills, shortness of breath at rest and worsening with exertion, chest tightness and wheezing. He denies any weight loss, night sweats or hemoptysis. He denies any recent travel. Son is sick with URI at home. His triggers include fresh cut grass, cold weather. Noncompliant with Symbicort. Continues to smoke about two pack of cigarettes per day. He used his albuterol inhaler with out relief and came to ER for further evaluation. VS in the ER, pulse 128, RR, 32, BP 128/89, saturating 95% on RA. Due to the work of breathing and tachypnea he was placed on BIPAP. Laboratory data showed WBC 11, Hgb 14.2, Plt 285. Chemistry significant for Na 135, BUN 14, Cr 0.97, Random glucose 112, TP 8.3, ABG done in the ER 7.44/41/85/27/96% on BIPAP 40% FIO2. Influenza A/B PCR negative. ESR 69 and CRP 11. Procalcitonin today 0.27. CXR showed patchy airspace consolidation seen in the left mid to lower lung. CTA chest was negative for pulmonary embolism, but showed diffuse tree-in-bud nodularity with mild associated groundglass change. More focal consolidation is seen in the right middle lobe and lingula. He was admitted for asthma exacerbation secondary to pneumonia. He is currently on levoquin 750 mg IV daily, solumedrol IV, Symbicort and duonebs. Blood cultures are negative to date. Since admission patient he has required increased oxygen to maintain saturations about 90%. VS within the last 24 hours showed Tm 37 degrees, BP 102/ 57-127/72, P 22-30, RR 22-30, pulse oximetry 91-94% on 5-6 L NC with expiratory wheezing throughout all lung puri, tachypneia to and desaturation to 80s with coughing. Today, he still complains of dry cough, wheezing ,dyspnea on exertion and when he lies flat. PFT from 07/02/2008 prebronchodilator spirometry showed moderate obstructive ventilatory defect with excellent bronchodilator response. No recent PFT seen in outpatient records. In October 2012, he was admitted for acute exacerbation of asthma secondary to pneumonia. 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 He received influenza vaccination in June. Historian: patient Onset: last week Severity: moderate Complaint Status: persistent Review of Systems Constitutional: + fever, No chills, No sweats Eyes: No worsening of vision ENT: + hearing loss (chronic hearing loss left ear), No unusual epistaxis, No nasal symptoms Respiratory: + cough, + sputum, + wheezing, + shortness of breath Cardiovascular: No chest pain Abdomen: No pain, No nausea, No vomiting Musculoskeletal: No joint pain Genitourinary - Male: No hematuria, No dysuria, No urinary frequency Neurologic: No memory loss, No paralysis, No weakness Psychiatric: No depression symptoms Endocrine: No fatigue Hematologic / Lymphatic: No abnormal bleeding/bruising Integumentary: No rash Allergic / Immunologic: No environmental allergies Constitutional: reports: as stated in HPI Eyes: reports: as stated in HPI ENT: reports: as stated in HPI Cardiovascular: reports: as stated in HPI Respiratory: reports: as stated in HPI Gastrointestinal: reports: as stated in HPI Genitourinary - Male: reports: as stated in HPI Musculoskeletal: reports: as stated in HPI Integumentary: reports: as stated in HPI Neurologic: reports: as stated in HPI Psychiatric: reports: as stated in HPI Endocrine: as stated in HPI Hematologic / Lymphatic: as stated in HPI Allergic / Immunologic: as stated in HPI All Other Symptoms All Other Systems: Reviewed and Negative Past Medical History Past Medical History: Active Problems 1. Chronic obstructive pulmonary disease (J44.9) 2. Current smoker (F17.200) 3. Esophageal reflux (K21.9) 4. Hypercholesterolemia (E78.00) 5. Hypothyroidism (E03.9) 6. Insomnia (G47.00) 7. Pain syndrome, chronic (G89.4) 8. Spina bifida (Q05.9) Past Medical History 1. History of Allergy To Latex 2. History of Conductive Hearing Loss Of The Right Ear 3. History of COPD exacerbation (J44.1) 4. History of COPD with acute bronchitis (J44.0) 5. History of Depression (F32.9) 6. History of Esophageal reflux (K21.9) 7. History of abscess of skin and subcutaneous tissue (Z87.2) 8. History of blurred vision (Z86.69) 9. History of insomnia (Z87.898) 10. History of insomnia (Z87.898) 11. History of low back pain (Z87.39) 12. History of spina bifida (Z87.728) 13. History of wheezing (Z87.898) 14. History of Hypothyroidism (E03.9) 15. History of Lower back pain (M54.5) 16. History of Muscle spasm (M62.838) 17. History of Odontalgia (K08.89) 18. History of Prediabetes (R73.03) 19. History of Rash (R21) 20. History of Right Ear Deafness 21. History of Sleep disturbances (G47.9) Family History Family History 1. Family history of Diabetes Mellitus Social History Social History Denied: History of Alcohol History of Current Diet Needs Improvement Current smoker (F17.200) Denied: History of Drug Use Marital History - Single Unemployed Uses Safety Equipment - Seatbelts Hx Tobacco Use In Past Year?: Yes (menthol cigarettes ) Smoking Status: Current Every Day Smoker Marital status: single Housing status: lives with family Occupational Status: employed Immunizations History of Influenza Vaccine: No History of Tetanus Vaccine?: Yes History of Pneumococcal: No History of Hepatitis B Vaccine: No Allergies Coded Allergies: Latex (Verified Allergy, Severe, HIVES/SHORT OF BREATH, 08/30/17) HAS SPINA BIFIDA, CAN NOT BE IN CONTACT WITH LATEX Pt reports both rash and SOB Latex2 -Systemic Allergic Response (Verified Allergy, Severe, SHORTNESS OF BREATH, 08/30/17) Current Medications Reported Home Medications Medications Dose Route/Sig Max Daily Dose Days Date Category Dose Instructions Baclofen 10 Mg Tab 10 Mg PO DAILY PRN 08/30/17 Reported Trazodone (Trazodone HCl) 50 Mg Tab 50 Mg PO HS 06/20/17 Reported Ventolin Hfa (Albuterol) 200 Puffs/17836 Mcg Aers 1-2 Puffs INH Q4-6HRS PRN 06/20/17 Reported Levothyroxine Sodium 200 Mcg Tab 200 Mcg PO DAILY 05/30/[address] (Diclofenac Sod) 75 Mg Tabcr 75 Mg PO DAILY 10/22/14 Reported TAKE THIS MEDICATION WITH FOOD Symbicort 160/4.5 Inhaler (Budesonide/Formoterol Fumarate) 120 Puffs/ Aero 2 Puffs INH BID 10/22/14 Reported RINSE MOUTH AFTER USE Physical Physical Exam Vital Signs: Date Time Temp Pulse Resp B/P (MAP) Pulse Ox O2 Delivery O2 Flow Rate FiO2 09/01/17 08:55 91 Nasal Cannula 6.0 09/01/17 07:46 36.6 94 30 109/65 (80) 91 Room Air 6.0 09/01/17 07:01 66 24 91 Nasal Cannula 5.0 09/01/17 06:17 36.7 97 22 127/72 (90) 94 Nasal Cannula 6.0 09/01/17 04:00 37.0 62 25 92 Nasal Cannula 6.0 09/01/17 04:00 92 Nasal Cannula 6.0 09/01/17 01:42 79 26 92 Nasal Cannula 6.0 09/01/17 00:00 91 Nasal Cannula 6.0 09/01/17 00:00 36.5 78 22 102/57 (72) 91 Nasal Cannula 6.0 08/31/17 20:00 91 Nasal Cannula 6.0 08/31/17 19:36 96 30 91 Nasal Cannula 6.0 08/31/17 19:08 36.6 96 22 116/72 (87) 90 Nasal Cannula 6.0 08/31/17 16:00 Nasal Cannula 6.0 08/31/17 15:35 36.9 102 28 123/80 (94) 87 6.0 08/31/17 14:52 93 28 90 Nasal Cannula 6.0 08/31/17 12:09 36.8 94 22 128/73 (91) 90 08/31/17 12:00 Nasal Cannula 6.0 08/31/17 09:43 111 30 90 Nasal Cannula 6.0 General Appearance: WD/WN, tachypneic and dyspneic with speaking. Head: normocephalic Eyes: normal inspection ENT: normal ENT inspection, pharynx normal Neck: supple, no adenopathy, no JVD Respiratory/Chest: chest non-tender, mild respiratory distress, + decreased breath sounds, + accessory muscle use, + pertinent finding- diminished breath sounds with decreased air entry Cardiovascular: regular rate, rhythm, no edema Abdomen/GI: normal bowel sounds, non tender, soft Back: normal inspection, no CVA tenderness, + pertinent finding ( Kyphoscoliosis present) Extremities/Musculoskelatal: normal inspection, no calf tenderness, normal capillary refill, no pedal edema, normal range of motion Neurologic/Psych: 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 of 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8 10-20 Random Glucose 192 70-99 mg/dl Calcium Level 8.9 8.5-10.1 mg/dl Magnesium Level 2.6 1.8-2.4 mg/dl Erythrocyte Sedimentation Rate 69 0-14 mm/hr C-Reactive Protein 11.10 0-0.29 mg/dl Procalcitonin 0.27 0-0.5 ng/ml Diagnostic Radiology CT ANGIOGRAM OF THE CHEST 08/31/2017 CLINICAL HISTORY: Hypoxia. Tachypnea. COMPARISON STUDY: Chest x-ray dated 08/30/2017. TECHNIQUE: Following the IV administration of 95 cc of Optiray 320, CT angiogram of the chest was performed from the upper abdomen to the thoracic inlet utilizing the pulmonary embolus protocol. Images are reviewed in the axial, sagittal, and coronal planes. 3-D MIPS images are created and assessed. IV contrast was administered without complication. A dose lowering technique was utilized adhering to the principles of ALARA. The examination is degraded by motion artifact. CT DOSE: 277.36 mGy.cm FINDINGS: Thyroid: Atrophic. Thoracic aorta: The thoracic aorta is normal in caliber and demonstrates 4-vessel variant arch anatomy. No dissection is seen. Pulmonary vasculature: The pulmonary trunk is normal in caliber. There are no filling defects identified in main, lobar, or proximal segmental pulmonary branches to suggest pulmonary embolus. Evaluation of the peripheral vessels is degraded by motion artifact. Heart: The heart is top normal in size and without pericardial effusion. Lungs and pleural spaces: Evaluation of the lung parenchyma is significant degraded by motion artifact. There is diffuse tree-in-bud nodularity with mild associated groundglass change. More focal consolidation is seen in the right middle lobe and lingula. The trachea and central airways are grossly clear. No pleural effusion is seen. Mediastinum: There is no mediastinal lymphadenopathy. Kiki: Prominent right hilar nodes measure up to 1.1 cm in short axis. Axillae: There is no axillary lymphadenopathy. Upper abdomen: Partially visualized upper abdominal viscera is within normal limits. Skeletal structures: No lytic or blastic bony lesions are seen. IMPRESSION: 1. Significantly motion compromised examination. 2. There is no evidence of central pulmonary embolus in the main, lobar, or proximal segmental pulmonary arteries. The peripheral vessels are not well assessed. 3. There is diffuse tree-in-bud nodularity with associated groundglass change seen throughout both lungs, likely representing an infectious/inflammatory pneumonitis. This may represent atypical infection. Follow-up chest CT in 2-3 months time is recommended to document resolution. 4. More focal airspace consolidation in the right middle lobe and lingula tibia on an infectious basis or represent atelectasis. 5. No pleural effusion is identified. SINGLE VIEW CHEST 08/30/2017 CLINICAL HISTORY: Dyspnea. FINDINGS: An AP, portable, upright chest radiograph is compared to study dated 6:15 and 16. The cardiomediastinal silhouette is unremarkable. There is patchy airspace consolidation seen in the left mid to lower lung. Airspace consolidation is also seen at the right lung base. No large pleural effusion or pneumothorax is seen. The bony thorax is grossly intact. IMPRESSION: There is multifocal airspace consolidation identified as above, most confluent at the left lung base. The appearance suggests multifocal pneumonia. Asymmetric pulmonary edema is considered less likely. Clinical correlation will be required and radiographic follow-up to resolution is recommended Impression Assessment and Plan Acute hypoxemic respiratory failure Asthma exacerbation Community acquired pneumonia GERD Tobacco use disorder Mr. Womack has acute hypoxic respiratory failure with acute exacerbation of asthma secondary to multifocal pneumonia. Continue with Levaquin 750 mg daily x 5 day course, continue with Symbicort 160/ 4.5 2 puffs BID, continue with albuterol neb q-4h 6 prn Repeat CXR today, if unchanged, may have to broaden antibiotic coverage to vancomycin and zosyn. Continue with Solumedrol IV Obtain peak flow Repeat ABG F/u Sputum cultures. Send serum mycoplasma Ab and legionella urine Ag. Obtain TTE to evaluate cardiac function Continue with PPI for GERD Smoking cessation counseling provided. Nicotine patch offered. Continue with DVT ppx Recommend patient avoid known triggers if at all possible.
[2017-09-01] MEDS: NICOTINE 21 MG/24 HR TDSY TD SCH (16:10)
--- NOTE | 2017-09-01 16:24 | Progress Note ---
Subjective Date of Service: Sep 01, 2017. Subjective Pt evaluation today including: conversation w/ patient, physical exam, chart review, lab review, review of studies, conversation w/ quality consultant, review of inpatient medication list Voiding: no voiding problems Was having significant tachypneic with respiratory rate at 40s, pulmonology saw patient, check ABG and start high flow oxygen When I seeing patient he was playing cell phone in the typing, respiratory rate at 24 now, osat is 95% in 5 L Problem List Medical Problems: (1) Abscess of groin, right Status: Acute (2) Back strain Status: Acute (3) Bilateral pneumonia Status: Acute (4) Dyspnea Status: Acute (5) Rash Status: Acute Review of Systems Constitutional: + weakness, + fatigue Eyes: No worsening of vision, No eye pain, No redness, No discharge, No diplopia ENT: No hearing loss, No unusual epistaxis, No nasal symptoms, No sore throat, No tinnitus, No dental problems, No trouble swallowing Respiratory: + cough, + wheezing, + shortness of breath, + dyspnea at rest, No sputum, No dyspnea on exertion, No hemoptysis Cardiac: No chest pain, No orthopnea, No PND, No edema, No claudication, No palpitations Abdomen: No pain, No nausea, No vomiting, No diarrhea, No constipation Musculoskeletal: No joint pain, No muscle pain, No swelling, No calf pain Male : No dysuria, No urinary frequency, No incontinence, No nocturia more than once/night, No slowing stream, No hematuria Neurologic: No memory loss, No paralysis, No weakness, No numbness/tingling, No vertigo, No balance problems Psychiatric: No depression symptoms, No anhedonism, No anxiety, No insomnia, No substance abuse Heme: No abnormal bleeding/bruising, No clotting problems, No swollen lymph nodes, No night sweats Endo: No fatigue, No excessive thirst, No excessive urination Skin: No rash, No itch, No new/changing skin lesions, No color change, No bleeding Objective Vital Signs Date Time Temp Pulse Resp B/P (MAP) Pulse Ox O2 Delivery O2 Flow Rate FiO2 09/01/17 14:03 74 24 96 Nasal Cannula 5.0 09/01/17 13:30 36.6 77 34 95/51 (66) 93 Nasal Cannula 4.0 09/01/17 12:16 91 Nasal Cannula 6.0 09/01/17 08:55 91 Nasal Cannula 6.0 09/01/17 07:46 36.6 94 30 109/65 (80) 91 Room Air 6.0 09/01/17 07:01 66 24 91 Nasal Cannula 5.0 09/01/17 06:17 36.7 97 22 127/72 (90) 94 Nasal Cannula 6.0 09/01/17 04:00 37.0 62 25 92 Nasal Cannula 6.0 09/01/17 04:00 92 Nasal Cannula 6.0 09/01/17 01:42 79 26 92 Nasal Cannula 6.0 09/01/17 00:00 91 Nasal Cannula 6.0 09/01/17 00:00 36.5 78 22 102/57 (72) 91 Nasal Cannula 6.0 08/31/17 20:00 91 Nasal Cannula 6.0 08/31/17 19:36 96 30 91 Nasal Cannula 6.0 08/31/17 19:08 36.6 96 22 116/72 (87) 90 Nasal Cannula 6.0 Physical Exam General Appearance: WD/WN, no apparent distress, + thin, + pertinent finding ( mild tachypneic resp rated at 24) Eyes: normal inspection, PERRL, EOMI, sclerae normal ENT: normal ENT inspection, hearing grossly normal, pharynx normal Neck: supple, no adenopathy, thyroid normal, no JVD, no carotid bruits, trachea midline Respiratory/Chest: chest non-tender, normal breath sounds, no respiratory distress, no accessory muscle use, + decreased breath sounds, + wheezing Cardiovascular: regular rate, rhythm, no edema, no gallop, no JVD, no murmur Abdomen: normal bowel sounds, non tender, soft, no organomegaly, no pulsatile mass Extremities: normal range of motion, non-tender, normal inspection, no pedal edema, no calf tenderness, normal capillary refill, pelvis stable Neurologic/Psychiatric: director of intelligence II-XII nml as tested, no motor/sensory deficits, alert, normal mood/affect, oriented x 3 Skin: normal color, warm/dry, no rash Lymphatic: no adenopathy Laboratory Results Last 24 Hours Test 09/01/17 06:23 09/01/17 07:49 09/01/17 10:15 Sodium Level 136 mmol/L Potassium Level 3.8 mmol/L Chloride Level 102 mmol/L Carbon Dioxide Level 26 mmol/L Anion Gap 8.0 mmol/L Blood Urea Nitrogen 23 mg/dl Creatinine 1.00 mg/dl Est Creatinine Clear Calc Drug Dose 82.5 ml/min Estimated GFR () 110.2 Estimated GFR (Non- 95.1 BUN/Creatinine Ratio 22.8 Random Glucose 192 mg/dl Calcium Level 8.9 mg/dl Magnesium Level 2.6 mg/dl Erythrocyte Sedimentation Rate 69 mm/hr C-Reactive Protein 11.10 mg/dl Pro-B-Type Natriuretic Peptide 411 pg/ml Procalcitonin 0.27 ng/ml Arterial Blood pH 7.46 Arterial Blood Partial Pressure CO2 43 mmHg Arterial Blood Partial Pressure O2 67 mm/Hg Arterial Blood HCO3 29 mmol/L Arterial Blood Oxygen Saturation 92.4 % Arterial Blood Base Excess 4.8 mEq/L Arterial Blood Gas Delivery 6L Rinku Test POS Assessment and Plan 37 y/o M with Hx spina bifida admitted because of possible Sepsis from multifocal PNA w/ acute on chronic COPD exacerbation: per Report, COPD diagnosed at age 18, heavy smoker, Sepsis with possible from multifocal PNA , Possible asthma exacerbation, with PCO2 retention and hypoxic in ABG and associated with respiratory alkalosis w/ acute on chronic COPD exacerbation: tachypnea, tachycardia, mild leukocytosis , Elevated d-dimer however chest CT has rule out PE, t continue oxygen support, Levaquin, steroid, DuoNeb scheduled and as needed every 2 hour, follow up sputum culture and blood culture. In addition to high flow other medical treatment could be magnesium IV, per mission assessment specialist she already notified typist for in case patient need to be transferred to ICU Spina bifida: Continue Baclofen 10 mg PRN Tobacco abuse: Smoking cessation counselling DVT prophylaxis covered Continued [facility] stay due to: multiple IV medications needed Discharge planning: home
[2017-09-01] MEDS: LEVOFLOXACIN / D5W 750 MG in PREMIXED IN D5W 150 ML IV SCH (17:50)
[2017-09-01] MEDS: TRAZODONE HCL 50 MG TAB PO SCH (21:35)
[2017-09-02] VITALS (13 sets, daily range): BP systolic 92–126; BP diastolic 46–79; PULSE 67–98; TEMP 36.4–36.8; O2SAT 91–100
[2017-09-02] MEDS: ALBUT/IPRATROP 3MG/0.5MG NEB 3 ML VIAL INH SCH ×4 (01:42→19:51)
[2017-09-02] MEDS: METHYLPREDNISOLONE IV 60 MG in SYRINGE 0 ML IV SCH ×4 (04:12→21:27)
[2017-09-02] MEDS: LEVOTHYROXINE 200 MCG TAB PO SCH (05:55)
[2017-09-02] MEDS: HEPARIN SOD 5000 UNIT/0.5 ML CARP SQ SCH ×3 (05:56→21:27)
[2017-09-02 06:47] LABS: HEMATOCRIT 37.8 % (42-52); MEAN CELL VOLUME 89.4 fL (80-100); MEAN CORPUSCULAR HGB CONC 33.6 g/dl (32-36); MEAN PLATELET VOLUME 9.3 fL (7.4-10.4); PLATELET COUNT 358 K/uL (130-400); RED BLOOD COUNT 4.23 M/uL (4.7-6.1); WHITE BLOOD COUNT 17.58 K/uL (4.8-10.8)
[2017-09-02] MEDS: PANTOprazole SOD 40 MG TAB PO SCH (06:57)
[2017-09-02] MEDS: DICLOFENAC SOD EC 75 MG TABCR PO SCH (06:57)
[2017-09-02] MEDS: BUDESONIDE/FORMOTEROL FUMARATE 160/4.5 60 PUFFS/INHALER INH SCH ×2 (06:57→21:27)
--- NOTE | 2017-09-02 09:33 | Pulmonology Progress Note ---
Pulmonary Progress Note Date of Service Sep 02, 2017. Attending Dr. Upton Subjective Patient seen and examined at bedside. He still is quite tachypneic on HFNC 35%, 45L/min/ He says that he feels like he is tiring. He is still wheezing diffusely. Objective VS: reviewed. Afebrile, BP 92/46-124/67. P 67-92, 95-100%. Gen: AAOx3, tachypneic with use of accessory muscles. CVS: S1, S2, RRR Lungs: diffuse wheezes bilaterally, Abd: soft/NT/ND/BS+ Ext: no edema bilaterally, no cyanosis, no clubbing. Labs reviewed. WBC up to 17 from 8 yesterday. Blood cultures 09/01/2017--light normal stan Assessment & Plan Acute hypoxemic respiratory failure Asthma exacerbation Community acquired pneumonia GERD Tobacco use disorder Mr. Womack has acute hypoxic respiratory failure with acute exacerbation of asthma secondary to multifocal pneumonia. Sputum cultures are negative. Patient does not seem to improving from a respiratory standpoint. He still tachypneic on HFNC. I think he will will benefit from Heliox 70/30 to increase laminar flow. Continue with Symbicort 160/4.5 2 puffs BID, continue with duoneb q4-6h , albuterol neb q2h 6 prn Will broaden antibiotic coverage vancomycin, zosyn and azithromycin Continue with Solumedrol IV Obtain peak flow Repeat ABG Send serum mycoplasma Ab and legionella urine Ag. Obtain TTE to evaluate cardiac function Continue with PPI for GERD Smoking cessation counseling provided. Continue with nicotine patch. Continue with DVT ppx I will speak to ICU for transfer. Data Medications: Current Inpatient Medications Medications (Trade) Dose Ordered Sig/Linette Route Start Time Stop Time Status Last Admin Dose Admin Heparin Sodium (Porcine) (Heparin Sq 5000 Unit/0.5ml) 5,000 unit Q8H SQ 08/30/17 22:00 09/29/17 21:59 09/02/17 05:56 5,000 UNIT Acetaminophen (Tylenol Tab) 650 mg Q4H PRN PO 08/30/17 20:00 09/29/17 19:59 Al Hydrox/Mg Hydrox/Simethicone (Maalox Max Susp) 15 ml Q4H PRN PO 08/30/17 20:00 09/29/17 19:59 Magnesium Hydroxide (Milk Of Magnesia Susp) 30 ml Q6H PRN PO 08/30/17 20:00 09/29/17 19:59 09/01/17 07:25 30 ML Polyethylene (Miralax Powder Packet) 17 gm DAILY PRN PO 08/30/17 20:00 09/29/17 19:59 09/02/17 07:11 17 GM Ondansetron HCl (Zofran Inj) 4 mg Q6H PRN IV 08/30/17 20:00 09/29/17 19:59 Albuterol/ Ipratropium (Duoneb) 3 ml Q6R INH 08/30/17 21:00 09/29/17 20:59 09/02/17 07:01 3 ML Levofloxacin 750 mg/Prmx 150 ml @ 100 mls/hr Q24H IV 08/31/17 18:00 09/06/17 17:59 09/01/17 17:50 100 MLS/HR Methylprednisolone Sodium Succinate 60 mg/Syringe 0.96 ml @ 1.5 mls/min Q6H IV 08/30/17 22:00 09/29/17 21:59 09/02/17 04:12 1.5 MLS/MIN Baclofen (Lioresal Tab) 10 mg DAILY PRN PO 08/30/17 21:45 09/29/17 21:44 Budesonide/ Formoterol Fumarate (Symbicort 160/ 4.5 Inh) 2 puffs BID INH 08/31/17 08:00 09/30/17 07:59 09/02/17 06:57 2 PUFFS Diclofenac Sodium (Voltaren Tab) 75 mg DAILY PO 08/31/17 08:00 09/30/17 07:59 09/02/17 06:57 75 MG Levothyroxine Sodium (Synthroid Tab) 200 mcg DAILYBB PO 08/31/17 06:30 09/30/17 06:29 09/02/17 05:55 200 MCG Trazodone HCl (Desyrel Tab) 50 mg HS PO 08/30/17 22:00 09/29/17 21:59 09/01/17 21:35 50 MG Pantoprazole Sodium (Protonix Tab) 40 mg QAM PO 09/01/17 08:00 10/01/17 07:59 09/02/17 06:57 40 MG Albuterol Sulfate (Ventolin 0.083% 2.5MG/3ML Neb) 2.5 mg Q2R PRN INH 08/31/17 10:15 09/29/17 19:59 Ioversol (Optiray 320) 100 ml UD PRN IV 08/31/17 11:15 09/04/17 11:14 Nicotine (Nicoderm Cq 21MG Patch) 1 patch QAM TD 09/02/17 09:00 10/02/17 08:59 09/01/17 16:10 1 PATCH Miscellaneous (Remove Nicoderm Patch) 1 ea HS N/A 09/01/17 21:00 10/01/17 20:59 09/01/17 21:39 1 EA Codeine Phosphate/ Guaifenesin (Robitussin-AC Sugar Free Syrup) 10 ml Q6H PRN PO 09/01/17 10:00 10/01/17 09:59 Vital Signs: Date Time Temp Pulse Resp B/P (MAP) Pulse Ox O2 Delivery O2 Flow Rate FiO2 09/02/17 08:01 High Flow Oxygen 35 Nasal Cannula 09/02/17 07:30 36.5 86 24 124/67 (86) 96 High Flow Oxygen 09/02/17 07:01 67 22 95 Nasal Cannula 45.0 45 09/02/17 04:39 36.8 85 18 99/58 (72) 100 High Flow Oxygen 09/02/17 04:00 High Flow Oxygen 45.0 45 Nasal Cannula 09/02/17 01:42 92 22 97 Nasal Cannula 45.0 45 09/02/17 00:27 36.6 71 20 92/46 (61) 95 High Flow Oxygen 09/02/17 00:02 High Flow Oxygen Nasal Cannula 09/01/17 20:00 High Flow Oxygen Nasal Cannula 09/01/17 19:53 36.8 104 18 124/65 (84) 97 09/01/17 19:08 90 26 97 Nasal Cannula 45.0 55 09/01/17 16:38 36.9 72 18 101/61 (74) 98 09/01/17 16:24 91 Nasal Cannula 6.0 09/01/17 14:03 74 24 96 Nasal Cannula 5.0 09/01/17 13:30 36.6 77 34 95/51 (66) 93 Nasal Cannula 4.0 09/01/17 12:16 91 Nasal Cannula 6.0 Laboratory Results: Last 24 Hours Test 09/01/17 10:15 09/02/17 06:19 Arterial Blood pH 7.46 Arterial Blood Partial Pressure CO2 43 mmHg Arterial Blood Partial Pressure O2 67 mm/Hg Arterial Blood HCO3 29 mmol/L Arterial Blood Oxygen Saturation 92.4 % Arterial Blood Base Excess 4.8 mEq/L Arterial Blood Gas Delivery 6L Rinku Test POS White Blood Count 17.58 K/uL Red Blood Count 4.23 M/uL Hemoglobin 12.7 g/dL Hematocrit 37.8 % Mean Corpuscular Volume 89.4 fL Mean Corpuscular Hemoglobin 30.0 pg Mean Corpuscular Hemoglobin Concent 33.6 g/dl RDW Standard Deviation 42.0 fL RDW Coefficient of Variation 12.8 % Platelet Count 358 K/uL Mean Platelet Volume 9.3 fL
[2017-09-02] MEDS ORDERED: PIPERACILLIN/TAZOBACTAM 3.375 GM/100ML D5W IV STA (09:42)
[2017-09-02] MEDS ORDERED: AZITHROMYCIN IV 500 MG in DEXTROSE 5% 250ML 250 ML IV ONE (10:00)
[2017-09-02 10:08] LABS: ARTERIAL BLD GAS O2 SATURATION 92.4 % (90-95); ARTERIAL BLOOD GAS BASE EXCESS 3.9 mEq/L (-9-1.8); ARTERIAL BLOOD GAS HCO3 28 mmol/L (19-24); ARTERIAL BLOOD GAS PO2 65 mm/Hg (80-95); ARTERIAL BLOOD GAS pH 7.45 (7.35-7.45)
[2017-09-02 10:09] LABS: ALLEN TEST POS (POS); O2 ADMINISTRATION 45% HI FLOW
[2017-09-02] MEDS ORDERED: VANCOMYCIN CONSULT ACTIVE SCH (10:11)
[2017-09-02] MEDS ORDERED: PIPERACILL/TAZOBAC IV 3.375 GM in DEXTROSE 5% 100ML IV ONE (10:15)
[2017-09-02] MEDS ORDERED: PIPERACILL/TAZOBAC CONSULT ACTIVE PRN (10:30)
--- NOTE | 2017-09-02 10:42 | Pharmacy Progress Note ---
Pharmacy Abx Initial Consult Date of Service Sep 02, 2017. Pharmacy Dosing Scope Date of Consult: 09/02/17 Consultation requested by: Dr. Lauren Pharmacy is consulted to initiate Vancomycin and Zosyn IV dosing therapy, order appropriate labs and adjust drug dose/frequency. Subjective The patient is a 37 year old male admitted on Aug 30, 2017 at 19:52 with acute hypoxic respiratory failure with acute exacerbation of asthmas secondary to multifocal pneumonia. Patient has been treated with IV Levaquin x 3 days, without improvement in CAP. Changing antibiotics per pulmonary. PMH GERD and Tobacco use disorder. Objective Height (Feet): 5 Height (Inches): 0.00 Weight (Kilograms): 70.400 Vital Signs (Past 12Hrs) Vital Signs Past 12 Hours Date Time Temp Pulse Resp B/P (MAP) Pulse Ox O2 Delivery O2 Flow Rate FiO2 09/02/17 08:01 High Flow Oxygen 35 Nasal Cannula 09/02/17 07:30 36.5 86 24 124/67 (86) 96 High Flow Oxygen 09/02/17 07:01 67 22 95 Nasal Cannula 45.0 45 09/02/17 04:39 36.8 85 18 99/58 (72) 100 High Flow Oxygen 09/02/17 04:00 High Flow Oxygen 45.0 45 Nasal Cannula 09/02/17 01:42 92 22 97 Nasal Cannula 45.0 45 09/02/17 00:27 36.6 71 20 92/46 (61) 95 High Flow Oxygen 09/02/17 00:02 High Flow Oxygen Nasal Cannula Lab Results (24Hrs) Item Value Date Time Creatinine 1.00 mg/dl 09/01/17 0623 Est Creatinine Clear Calc Drug Dose 82.5 ml/min 09/01/17 0623 Creatinine 0.85 mg/dl 08/31/17 0542 Est Creatinine Clear Calc Drug Dose 90.6 ml/min 08/31/17 0542 Creatinine 0.97 mg/dl 08/30/17 1637 Est Creatinine Clear Calc Drug Dose 79.4 ml/min 08/30/17 1637 Laboratory Tests (24 Hours) Test 09/02/17 06:19 White Blood Count 17.58 K/uL (4.8-10.8) H Micro Results Date/Time Source Procedure Growth Status 08/30/17 16:37 Blood Blood Culture - Preliminary NO GROWTH TO DATE. Resulted 08/30/17 16:30 Blood Blood Culture - Preliminary NO GROWTH TO DATE. Resulted 08/31/17 08:00 Sputum Expectorated Sputum Gram Stain - Final Complete 08/31/17 08:00 Sputum Expectorated Sputum Sputum Culture - Final LIGHT NORMAL MARJORIE. Complete Assessment & Plan Assessment 37 year old male with acute hypoxemic respiratory failure, asthma exacerbation, and CAP without improvement on IV Levaquin x 3 days, changing to IV Vancomycin, Zosyn, and Azithromycin. No MRSA swab. Plan STAT MRSA Nasal Swab IV Vancomycin Zosyn and Azithromycin for treatment of CAP Vancomycin IV * Loading dose: 1750 mg (25 mg/kg) x 1 now at 1100 * Maintenance dose: 1000 mg IV (14 mg/kg) every 8 hours * Estimated pharmacokinetic parameters: T1/2 = 10 hrs, Zeferino = 0.07/hr, Vd = 0.7 L /Kg * Will dose a little less on mg/kg basis d/t more frequent dosing interval and monitor SCr, young pt with good renal function, BMI 30kg/m2. * Goal trough level for CAP : 15 to 20 mcg/mL * Trough level ordered for 09/03/17 prior to 1200 dose, this level will be after patient has received 3 total doses Piperacillin/tazobactam * 3.375 g bolus administered over 30 minutes, then 3.375 g IV extended infusion every 8 hours for CrCl greater than 20 mL/min Azithromycin 500mg IV daily Pharmacy will continue to follow and will adjust dose/frequency as necessary. Thank you.
--- NOTE | 2017-09-02 10:53 | Progress Note ---
Subjective Date of Service: Sep 02, 2017. Subjective Pt evaluation today including: conversation w/ patient, physical exam, chart review, lab review, review of studies, conversation w/ [employer] consultant, review of inpatient medication list Still labored breathing wheezing in high flow oxygen, looks much tired, in the patient reported feeling much tired to, a lot of wheezing Problem List Medical Problems: (1) Abscess of groin, right Status: Acute (2) Back strain Status: Acute (3) Bilateral pneumonia Status: Acute (4) Dyspnea Status: Acute (5) Rash Status: Acute Review of Systems Constitutional: + weakness, + fatigue Eyes: No see HPI, No worsening of vision, No eye pain, No redness, No discharge , No diplopia, No problem reported ENT: No see HPI, No hearing loss, No unusual epistaxis, No nasal symptoms, No sore throat, No tinnitus, No dental problems, No trouble swallowing, No problem reported Respiratory: + see HPI, + cough, + shortness of breath, + dyspnea on exertion, + dyspnea at rest Cardiac: No see HPI, No chest pain, No orthopnea, No PND, No edema, No claudication, No palpitations, No problem reported Abdomen: No see HPI, No pain, No nausea, No vomiting, No diarrhea, No constipation, No GI bleeding, No problem reported Male : No see HPI, No dysuria, No urinary frequency, No incontinence, No nocturia more than once/night, No slowing stream, No hematuria, No sexual dysfunction, No problem reported Neurologic: No memory loss Psychiatric: No depression symptoms Endo: No fatigue Skin: No rash Objective Vital Signs Date Time Temp Pulse Resp B/P (MAP) Pulse Ox O2 Delivery O2 Flow Rate FiO2 09/02/17 10:39 36.5 86 24 96 45.0 09/02/17 08:01 High Flow Oxygen 35 Nasal Cannula 09/02/17 07:30 36.5 86 24 124/67 (86) 96 High Flow Oxygen 09/02/17 07:01 67 22 95 Nasal Cannula 45.0 45 09/02/17 04:39 36.8 85 18 99/58 (72) 100 High Flow Oxygen 09/02/17 04:00 High Flow Oxygen 45.0 45 Nasal Cannula 09/02/17 01:42 92 22 97 Nasal Cannula 45.0 45 09/02/17 00:27 36.6 71 20 92/46 (61) 95 High Flow Oxygen 09/02/17 00:02 High Flow Oxygen Nasal Cannula 09/01/17 20:00 High Flow Oxygen Nasal Cannula 09/01/17 19:53 36.8 104 18 124/65 (84) 97 09/01/17 19:08 90 26 97 Nasal Cannula 45.0 55 09/01/17 16:38 36.9 72 18 101/61 (74) 98 09/01/17 16:24 91 Nasal Cannula 6.0 09/01/17 14:03 74 24 96 Nasal Cannula 5.0 09/01/17 13:30 36.6 77 34 95/51 (66) 93 Nasal Cannula 4.0 09/01/17 12:16 91 Nasal Cannula 6.0 Physical Exam General Appearance: + thin Eyes: normal inspection, PERRL, EOMI ENT: normal ENT inspection, hearing grossly normal Neck: supple, no adenopathy, thyroid normal Respiratory/Chest: chest non-tender, + decreased breath sounds, + crackles, + rales, + rhonchi Cardiovascular: regular rate, rhythm, no edema, no gallop Abdomen: normal bowel sounds, non tender, soft Extremities: normal range of motion, non-tender, normal inspection, no pedal edema, no calf tenderness Neurologic/Psychiatric: container filler II-XII nml as tested, no motor/sensory deficits, alert, normal mood/affect, oriented x 3 Skin: normal color, warm/dry Laboratory Results Last 24 Hours Test 09/02/17 06:19 09/02/17 09:57 White Blood Count 17.58 K/uL Red Blood Count 4.23 M/uL Hemoglobin 12.7 g/dL Hematocrit 37.8 % Mean Corpuscular Volume 89.4 fL Mean Corpuscular Hemoglobin 30.0 pg Mean Corpuscular Hemoglobin Concent 33.6 g/dl RDW Standard Deviation 42.0 fL RDW Coefficient of Variation 12.8 % Platelet Count 358 K/uL Mean Platelet Volume 9.3 fL Arterial Blood pH 7.45 Arterial Blood Partial Pressure CO2 42 mmHg Arterial Blood Partial Pressure O2 65 mm/Hg Arterial Blood HCO3 28 mmol/L Arterial Blood Oxygen Saturation 92.4 % Arterial Blood Base Excess 3.9 mEq/L Arterial Blood Gas Delivery 45% HI FLOW Rinku Test POS Assessment and Plan 37 y/o M with Hx spina bifida admitted because of possible Sepsis from multifocal PNA w/ acute on chronic COPD exacerbation: per Report, COPD diagnosed at age 18, heavy smoker, Sepsis with possible from multifocal PNA , Possible asthma exacerbation, with PCO2 retention and hypoxic in ABG and associated with respiratory alkalosis w/ acute on chronic COPD exacerbation: tachypnea, tachycardia, mild leukocytosis , and patient not feeling better, and feeling tired of on 35% of FiO2 Discussed with energy efficiency finance manager, patient is pending worsening acute respirator failure, ICU transferring initiated, discussed with delivery tech has sent serum mycoplasma Ab and legionella urine Ag. has requested TTE to evaluate cardiac function Elevated d-dimer however chest CT has rule out PE Leukocytosis with possible pneumonia upon admission continue oxygen support, continue steroid, DuoNeb scheduled and as needed every 2 hour, started broad-spectrum coverage of antibiotics with Vanco and Zosyn and azithromycin follow up sputum culture and blood culture. In addition to high flow other medical treatment could be magnesium IV, per energy efficiency finance manager she already notified delivery tech for in case patient need to be transferred to ICU Spina bifida: Continue Baclofen 10 mg PRN Tobacco abuse: Smoking cessation counselling DVT prophylaxis covered Continued [facility] stay due to: multiple IV medications needed Discharge planning: home
[2017-09-02] MEDS ORDERED: VANCOMYCIN INJ 1,750 MG in SODIUM CHLORIDE 0.9% 500ML 500 ML IV SCH (11:00)
--- NOTE | 2017-09-02 11:08 | Critical Care Consultation ---
Critical Care Consultation Date of Consultation: Sep 02, 2017. Attending Physician: Seth Lauren MD, PhD Reason for Consultation: asthma and hypoxemic respiratory failure History of Present Illness Patient with asthma and pneumonia. Has required substantial oxygen supplement. Respiratory rate has been high. Underlying neurological issues complicate the course. He is being moved to the ICU for closer observation and care. No chest pain. Expiratory wheezing noted. Exchange has been fair. I personally spoke with his pulmonary and hospitalist physicians regarding his care. Meds reviewed and case reviewed. Past Medical/Surgical History --Asthma --Spina Bifida --Heavy longstanding tobacco abuse Family History no history of clinical significance suggested Social History Smoking Status: Current Every Day Smoker Marital Status: single Housing Status: lives with family Occupation Status: employed Allergies Coded Allergies: Latex (Verified Allergy, Severe, HIVES/SHORT OF BREATH, 08/30/17) HAS SPINA BIFIDA, CAN NOT BE IN CONTACT WITH LATEX Pt reports both rash and SOB Latex2 -Systemic Allergic Response (Verified Allergy, Severe, SHORTNESS OF BREATH, 08/30/17) Home Medications Scheduled Budesonide/Formoterol Fumarate (Symbicort 160/4.5 Inhaler), 2 PUFFS INH BID Diclofenac Sod (Diclofenac Sodium Dr), 75 MG PO DAILY Levothyroxine Sodium (Levothyroxine Sodium), 200 MCG PO DAILY Trazodone Hcl (Trazodone), 50 MG PO HS Scheduled PRN Albuterol Hfa (Ventolin Hfa), 1-2 PUFFS INH Q4-6HRS PRN for SOB/Wheezing Baclofen (Baclofen), 10 MG PO DAILY PRN for Abdominal Pain Current Inpatient Medications Current Inpatient Medications Medications (Trade) Dose Ordered Sig/Linette Route Start Time Stop Time Status Last Admin Dose Admin Heparin Sodium (Porcine) (Heparin Sq 5000 Unit/0.5ml) 5,000 unit Q8H SQ 08/30/17 22:00 09/29/17 21:59 09/02/17 05:56 5,000 UNIT Acetaminophen (Tylenol Tab) 650 mg Q4H PRN PO 08/30/17 20:00 09/29/17 19:59 Al Hydrox/Mg Hydrox/Simethicone (Maalox Max Susp) 15 ml Q4H PRN PO 08/30/17 20:00 09/29/17 19:59 Magnesium Hydroxide (Milk Of Magnesia Susp) 30 ml Q6H PRN PO 08/30/17 20:00 09/29/17 19:59 09/01/17 07:25 30 ML Polyethylene (Miralax Powder Packet) 17 gm DAILY PRN PO 08/30/17 20:00 09/29/17 19:59 09/02/17 07:11 17 GM Ondansetron HCl (Zofran Inj) 4 mg Q6H PRN IV 08/30/17 20:00 09/29/17 19:59 Albuterol/ Ipratropium (Duoneb) 3 ml Q6R INH 08/30/17 21:00 09/29/17 20:59 09/02/17 07:01 3 ML Methylprednisolone Sodium Succinate 60 mg/Syringe 0.96 ml @ 1.5 mls/min Q6H IV 08/30/17 22:00 09/29/17 21:59 09/02/17 04:12 1.5 MLS/MIN Baclofen (Lioresal Tab) 10 mg DAILY PRN PO 08/30/17 21:45 09/29/17 21:44 Budesonide/ Formoterol Fumarate (Symbicort 160/ 4.5 Inh) 2 puffs BID INH 08/31/17 08:00 09/30/17 07:59 09/02/17 06:57 2 PUFFS Diclofenac Sodium (Voltaren Tab) 75 mg DAILY PO 08/31/17 08:00 09/30/17 07:59 09/02/17 06:57 75 MG Levothyroxine Sodium (Synthroid Tab) 200 mcg DAILYBB PO 08/31/17 06:30 09/30/17 06:29 09/02/17 05:55 200 MCG Trazodone HCl (Desyrel Tab) 50 mg HS PO 08/30/17 22:00 09/29/17 21:59 09/01/17 21:35 50 MG Pantoprazole Sodium (Protonix Tab) 40 mg QAM PO 09/01/17 08:00 10/01/17 07:59 09/02/17 06:57 40 MG Albuterol Sulfate (Ventolin 0.083% 2.5MG/3ML Neb) 2.5 mg Q2R PRN INH 08/31/17 10:15 09/29/17 19:59 Ioversol (Optiray 320) 100 ml UD PRN IV 08/31/17 11:15 09/04/17 11:14 Nicotine (Nicoderm Cq 21MG Patch) 1 patch QAM TD 09/02/17 09:00 10/02/17 08:59 09/01/17 16:10 1 PATCH Miscellaneous (Remove Nicoderm Patch) 1 ea HS N/A 09/01/17 21:00 10/01/17 20:59 09/01/17 21:39 1 EA Codeine Phosphate/ Guaifenesin (Robitussin-AC Sugar Free Syrup) 10 ml Q6H PRN PO 09/01/17 10:00 10/01/17 09:59 Azithromycin 500 mg/Dextrose 255 ml @ 125 mls/hr ONE ONCE IV 09/02/17 10:00 09/02/17 12:02 Azithromycin 500 mg/Dextrose 255 ml @ 125 mls/hr DAILY IV 09/03/17 09:00 09/09/17 08:59 Piperacillin Sod/ Tazobactam Sod 3.375 gm/Dextrose 115 ml @ 28.75 mls/ hr Q8H IV 09/02/17 18:00 09/09/17 09:59 Vancomycin HCl (Consult) 1 ea UD N/A 09/02/17 10:11 10/02/17 10:10 Piperacillin Sod/ Tazobactam Sod 3.375 gm/Dextrose 115 ml @ 230 mls/hr NOW ONCE IV 09/02/17 10:15 09/02/17 10:44 Vancomycin HCl 1750 mg/Sodium Chloride 535 ml @ 200 mls/hr TODAY@1100 IV 09/02/17 11:00 09/02/17 13:41 Vancomycin HCl 1000 mg/Sodium Chloride 270 ml @ 125 mls/hr Q8H IV 09/02/17 20:00 09/09/17 19:59 Piperacillin Sod/ Tazobactam Sod (Consult) 1 ea UD PRN N/A 09/02/17 10:30 10/02/17 10:29 Review of Systems Dyspnea with any activity. Expiratory wheezing. No real sputum. No target pain. Current meds tolerated. Remaining review was negative. Physical Exam Date Time Temp Pulse Resp B/P (MAP) Pulse Ox O2 Delivery O2 Flow Rate FiO2 09/02/17 08:01 High Flow Oxygen 35 Nasal Cannula 09/02/17 07:30 36.5 86 24 124/67 (86) 96 High Flow Oxygen 09/02/17 07:01 67 22 95 Nasal Cannula 45.0 45 09/02/17 04:39 36.8 85 18 99/58 (72) 100 High Flow Oxygen 09/02/17 04:00 High Flow Oxygen 45.0 45 Nasal Cannula 09/02/17 01:42 92 22 97 Nasal Cannula 45.0 45 09/02/17 00:27 36.6 71 20 92/46 (61) 95 High Flow Oxygen 09/02/17 00:02 High Flow Oxygen Nasal Cannula 09/01/17 20:00 High Flow Oxygen Nasal Cannula 09/01/17 19:53 36.8 104 18 124/65 (84) 97 09/01/17 19:08 90 26 97 Nasal Cannula 45.0 55 09/01/17 16:38 36.9 72 18 101/61 (74) 98 09/01/17 16:24 91 Nasal Cannula 6.0 09/01/17 14:03 74 24 96 Nasal Cannula 5.0 09/01/17 13:30 36.6 77 34 95/51 (66) 93 Nasal Cannula 4.0 09/01/17 12:16 91 Nasal Cannula 6.0 Gen--frail HEENT--no focal changes. Respiratory--exchange is fair. Expiratory wheezing noted in all puri Cardio--rate is ok. No substantial murmur suggested. Perfusion is ok GI--OBR Neuro--no new focal deficits. Musculo--ok. No new issues Psych--calm and interactive with me today Derm--no active lesions. Laboratory Results Last 24 Hours Test 09/02/17 06:19 09/02/17 09:57 White Blood Count 17.58 K/uL Red Blood Count 4.23 M/uL Hemoglobin 12.7 g/dL Hematocrit 37.8 % Mean Corpuscular Volume 89.4 fL Mean Corpuscular Hemoglobin 30.0 pg Mean Corpuscular Hemoglobin Concent 33.6 g/dl RDW Standard Deviation 42.0 fL RDW Coefficient of Variation 12.8 % Platelet Count 358 K/uL Mean Platelet Volume 9.3 fL Arterial Blood pH 7.45 Arterial Blood Partial Pressure CO2 42 mmHg Arterial Blood Partial Pressure O2 65 mm/Hg Arterial Blood HCO3 28 mmol/L Arterial Blood Oxygen Saturation 92.4 % Arterial Blood Base Excess 3.9 mEq/L Arterial Blood Gas Delivery 45% HI FLOW Rinku Test POS Assessment & Plan Pneumonia and Asthma--Heavy tobacco abuse--underlying neuromuscular disease 1. Pulmonary--he is well covered. Steroids and antibiotics with inhaled bronchodilators--oxygen supplement continues. Agree with pulmonary evaluation and plan of care. Will provide close ICU monitoring. 2. Cardio--rate and volume ok 3. GI--OBR 4. Neuro/musculo--no changes to Rx recommended at this point.
--- NOTE | 2017-09-02 14:51 | ECHOCARDIOGRAM REPORT ---
*NOTICE TO RECEIVING [employer] This information is strictly Confidential and protected under [place] law. [place] law prohibits you from making any further disclosure of this information unless further disclosure is expressly permitted by the written consent of the person to whom it pertains or is authorized by law. A general authorization for the release of medical or other information is not sufficient for this purpose. Hospital accepts no responsibility if the information is made available to any other person, INCLUDING THE PATIENT. Interpretation Summary * Name: ASHLIE POP Study Date: 09/02/2017 01:39 PM BP: 124/67 mmHg * Patient Location: [facility] [place]\S\E104\S\1 HR: 86 * : 1980 (M/d/yyyy) Gender: Male Height: 60 in * Age: 37 yrs Ethnicity: CA Weight: 155 lb * Ordering Physician: Seth Lauren * Performed By: Inga Jones RDCS * * Reason For Study: ACUTE RESPIRATORY FAILURE * BSA: 1.7 m2 * -- Conclusions -- * Left ventricular systolic function is normal. * No significant valvular disease Procedure Details * A complete two-dimensional transthoracic echocardiogram was performed (2D, M-mode, Doppler and color flow Doppler). * The study was technically difficult. * There were technical limitations due to patient'sPoor acoustic windows secondary to severe lung disease. Left Ventricle * The left ventricle is grossly normal size. * There is normal left ventricular wall thickness. * Ejection Fraction = 55-60%. * Left ventricular systolic function is normal. * Normal diastolic function * The left ventricular wall motion is normal. Right Ventricle * The right ventricle is normal in size and function. * The right ventricular systolic function is normal as assessed by tricuspid annular plane systolic excursion (TAPSE) (normal >1.5 cm). Atria * The left atrial size is normal. * Right atrial size is normal. Mitral Valve * The mitral valve is grossly normal. * Significant mitral regurgitation is absent. Tricuspid Valve * The tricuspid valve is not well visualized. * Significant tricuspid regurgitation is absent. Aortic Valve * The aortic valve is not well visualized. * No hemodynamically significant valvular aortic stenosis. * There is no significant aortic regurgitation. Pericardium/Pleural * There is no pericardial effusion. MMode 2D Measurements and Calculations IVSd 1.4 cm IVSs 1.8 cm LVIDd 5.1 cm LVIDs 3.6 cm LVPWd 0.65 cm LVPWs 0.87 cm IVS/LVPW 2.1 FS 29.8 % EDV(Teich) 121.6 ml ESV(Teich) 52.8 ml EF(Teich) 56.6 % EDV(cubed) 129.7 ml ESV(cubed) 44.9 ml EF(cubed) 65.3 % % IVS thick 34.9 % % LVPW thick 33.7 % LV mass(C)d 186.9 grams LV mass(C)dI 111.6 grams/m\S\2 LV mass(C)s 167.1 grams LV mass(C)sI 99.8 grams/m\S\2 SV(Teich) 68.8 ml SI(Teich) 41.1 ml/m\S\2 SV(cubed) 84.7 ml SI(cubed) 50.6 ml/m\S\2 ACS 0.77 cm LA dimension 3.1 cm asc Aorta Diam 3.5 cm LVOT diam 2.0 cm LVOT area 3.2 cm\S\2 LVAd ap4 30.3 cm\S\2 LVLd ap4 8.4 cm EDV(MOD-sp4) 91.8 ml EDV(sp4-el) 92.6 ml LVAs ap4 17.2 cm\S\2 LVLs ap4 6.6 cm ESV(MOD-sp4) 40.9 ml ESV(sp4-el) 37.9 ml EF(MOD-sp4) 55.4 % EF(sp4-el) 59.0 % LVAd ap2 32.1 cm\S\2 LVLd ap2 8.4 cm EDV(MOD-sp2) 108.5 ml EDV(sp2-el) 103.6 ml LVAs ap2 19.1 cm\S\2 LVLs ap2 7.1 cm ESV(MOD-sp2) 46.4 ml ESV(sp2-el) 43.2 ml EF(MOD-sp2) 57.3 % EF(sp2-el) 58.3 % LVLd %diff 0.05 % EDV(MOD-bp) 99.5 ml LVLs %diff 7.4 % ESV(MOD-bp) 45.1 ml EF(MOD-bp) 54.7 % SV(MOD-sp4) 50.8 ml SI(MOD-sp4) 30.4 ml/m\S\2 SV(MOD-sp2) 62.2 ml SI(MOD-sp2) 37.1 ml/m\S\2 SV(MOD-bp) 54.4 ml SI(MOD-bp) 32.5 ml/m\S\2 SV(sp4-el) 54.6 ml SI(sp4-el) 32.6 ml/m\S\2 SV(sp2-el) 60.4 ml SI(sp2-el) 36.0 ml/m\S\2 Doppler Measurements and Calculations MV E max aby 109.0 cm/sec MV A max aby 53.7 cm/sec MV E/A 2.0 MV dec time 0.22 sec Ao V2 max 133.7 cm/sec Ao max PG 7.2 mmHg Ao max PG (full) 1.6 mmHg NOAH(V,A) 2.8 cm\S\2 NOAH(V,D) 2.8 cm\S\2 LV V1 max PG 5.5 mmHg LV V1 max 117.4 cm/sec PA V2 max 94.9 cm/sec PA max PG 3.6 mmHg
[2017-09-02] MEDS: PIPERACILL/TAZOBAC IV 3.375 GM in DEXTROSE 5% 100ML 100 ML IV SCH (16:17)
[2017-09-02] MEDS: VANCOMYCIN INJ 1,000 MG in SODIUM CHLORIDE 0.9% 250ML 250 ML IV SCH (20:01)
[2017-09-02] MEDS: TRAZODONE HCL 50 MG TAB PO SCH (21:27)
[2017-09-03] VITALS (17 sets, daily range): BP systolic 88–129; BP diastolic 46–87; PULSE 64–91; TEMP 36.6–36.9; O2SAT 90–95
[2017-09-03] MEDS: ALBUT/IPRATROP 3MG/0.5MG NEB 3 ML VIAL INH SCH ×4 (01:32→19:36)
[2017-09-03] MEDS: PIPERACILL/TAZOBAC IV 3.375 GM in DEXTROSE 5% 100ML 100 ML IV SCH ×3 (01:48→17:36)
[2017-09-03] MEDS: VANCOMYCIN INJ 1,000 MG in SODIUM CHLORIDE 0.9% 250ML 250 ML IV SCH ×3 (04:09→19:42)
[2017-09-03] MEDS: METHYLPREDNISOLONE IV 60 MG in SYRINGE 0 ML IV SCH ×2 (04:10→07:54)
[2017-09-03 05:41] LABS: HEMATOCRIT 35.2 % (42-52); MEAN CELL VOLUME 89.3 fL (80-100); MEAN CORPUSCULAR HEMOGLOBIN 30.2 pg (25-34); MEAN CORPUSCULAR HGB CONC 33.8 g/dl (32-36); PLATELET COUNT 324 K/uL (130-400); RED BLOOD COUNT 3.94 M/uL (4.7-6.1); WHITE BLOOD COUNT 16.34 K/uL (4.8-10.8)
[2017-09-03 06:03] LABS: ISTAT ALLEN TEST Pass; ISTAT ARTERIAL BLOOD GAS HCO3 29 meq/L (19-24); ISTAT ARTERIAL BLOOD GAS PCO2 40 mmHg (35-46); ISTAT ARTERIAL BLOOD GAS PO2 68 mmHg (80-95); ISTAT ARTERIAL BLOOD GAS pH 7.46 (7.35-7.45); ISTAT CARBON DIOXIDE 30 mEq/l (24-31); ISTAT DELIVERY SYSTEM Other; ISTAT FIO2 0 %; ISTAT SITE L Radial
[2017-09-03] MEDS: LEVOTHYROXINE 200 MCG TAB PO SCH (06:06)
[2017-09-03] MEDS: HEPARIN SOD 5000 UNIT/0.5 ML CARP SQ SCH ×3 (06:18→21:15)
[2017-09-03 06:19] LABS: BUN/CREATININE RATIO 16.2 (10-20); CALCIUM 8.1 mg/dl (8.5-10.1); CREATININE 0.96 mg/dl (0.60-1.40); MAGNESIUM 2.9 mg/dl (1.8-2.4); PHOSPHORUS 3.4 mg/dl (2.5-4.9); POTASSIUM 4.6 mmol/L (3.5-5.1)
[2017-09-03] MEDS ORDERED: INSULIN ASPART 100 UNITS/ML 3 ML PEN SC SCH ×2 (06:50→12:00)
[2017-09-03] MEDS ORDERED: GLUCOSE 40% GEL 15 GM TUBE PO PRN (07:00)
[2017-09-03] MEDS ORDERED: GLUCAGON FOR INJ 1 MG VIAL SQ PRN (07:00)
[2017-09-03] MEDS ORDERED: GLUCOSE 10 TABS/TUBE PO PRN (07:00)
[2017-09-03] MEDS ORDERED: DEXTROSE 50% 50 ML SYR IV PRN (07:00)
[2017-09-03] MEDS: BUDESONIDE/FORMOTEROL FUMARATE 160/4.5 60 PUFFS/INHALER INH SCH ×2 (07:50→21:08)
[2017-09-03] MEDS: NICOTINE 21 MG/24 HR TDSY TD SCH (07:50)
[2017-09-03] MEDS: DICLOFENAC SOD EC 75 MG TABCR PO SCH (07:50)
[2017-09-03] MEDS: PANTOprazole SOD 40 MG TAB PO SCH (07:51)
[2017-09-03] MEDS: AZITHROMYCIN IV 500 MG in DEXTROSE 5% 250ML 250 ML IV SCH (07:53)
[2017-09-03] MEDS ORDERED: PHARMACY GLYCEMIC MGMT CONSULT SCH (08:11)
[2017-09-03 09:12] LABS: ESTIMATED AVERAGE GLUCOSE 123 mg/dl; HA1C FLAG Normal (Normal)
[2017-09-03] MEDS ORDERED: INSULIN IV INFUSION PROTOCOL SCH (09:15)
[2017-09-03] MEDS ORDERED: MODERATE STRESS LEVEL ONE (09:15)
[2017-09-03] MEDS ORDERED: INSULIN PROTOCOL GOAL RANGE ONE (09:15)
[2017-09-03] MEDS: GUAIFENESIN 200 MG TAB PO SCH ×4 (09:26→19:42)
--- NOTE | 2017-09-03 10:40 | Pulmonology Progress Note ---
Pulmonary Progress Note Date of Service Sep 03, 2017. Attending Dr. Max Subjective Subjectively feeling improved from admission. No chest pain. Appetite in-tact/ robust. Denies chest pain. Dyspneic with ambulating from chair to bathroom. Open to smoking cessation but fearful of associated weight gain. Objective 37-yo male admitted through the ER 08/30/17 with progressive dyspnea/hypoxia, chest congestion and multifocal pneumonia. PMHx includes: Asthma, hypothyroid, deafness - left, spina bifida, h/o childhood respiratory failure, esophageal reflux disease, HLD, h/o ETOH abuse, and tobacco use (2ppd x 10-year). In the ER, CXR described bilateral infiltrative process. AB.44/41/85-40%/ 27. He was treated with BiPAP/HFNC, antibiotic-broadened, IV steroids and bronchodilators. He was transferred to the ICU 10/02/17 for escalation of care. CT Angiogram of the Chest 08/31/17: IMPRESSION: 1. Significantly motion compromised examination. 2. There is no evidence of central pulmonary embolus in the main, lobar, or proximal segmental pulmonary arteries. The peripheral vessels are not well assessed. 3. There is diffuse tree-in-bud nodularity with associated groundglass change seen throughout both lungs, likely representing an infectious/inflammatory pneumonitis. This may represent atypical infection. Follow-up chest CT in 2-3 months time is recommended to document resolution. 4. More focal airspace consolidation in the right middle lobe and lingula tibia on an infectious basis or represent atelectasis. 5. No pleural effusion is identified. Echocardiogram 09/02/17: pEF: 55-60%, No diastolic dysfunction. No significant valvular dysfunction. Today: - 91-93%: 8LPM - ABG 7.46/40/68/29 - WBC/Hbg/Hct/Plts: 16.34/11.9/35.2/324 - A1AT, legionella, mycoplasma: pending - Sputum: light nL stan, BC: NGTD - IV steroid de-escalated to 40Q8 - antimicrobial coverage: azithromycin, pip-trazo, vancomycin - Cr: 0.96 Physical Exam: Constitutional: WDWN male sitting in chair at bedside. NAD Head: + O2 mask Eyes: EOMi, PERRLA, no injection Mouth: Large tongue with high palate. NO visible erythema or exudate Neck: No visible masses Respiratory: Bilateral -biphasic wheeze. Bilateral rhonchi. Extended expiratory phase CV: regular rate and rhythm. No MRG. warm and perfused peripherally with +2 radial and DP bilaterally. No clubbing GI: Soft, active bowel sounds MSK/Extremities: Moving and developed symmetrically Neurologic: A&O. Good data recall. Appropriate affect. Assessment & Plan 37-yo male with h/o asthma, spinabifida and heavy tobacco admitted with hypoxic respiratory failure and multifocal pneumonia. Subjectively improved yet continues to require high O2 support. 1. CXR today 2. Consider addition of nebulized budesonide BID in place of Symbicort as systemic steroid is tapered 3. Future planning: will require continued education on smoking cessation and PFTs 4. CT chest in 11/2017 Patient seen and examined agree with plan above. She will also note that recent history is been given by his mother suggesting possible upper airway stenosis verses malacia. Further evaluation will be required in the future. I do not suggest an active endoscopic evaluation during asthma flare. Data Medications: Current Inpatient Medications Medications (Trade) Dose Ordered Sig/Linette Route Start Time Stop Time Status Last Admin Dose Admin Heparin Sodium (Porcine) (Heparin Sq 5000 Unit/0.5ml) 5,000 unit Q8H SQ 08/30/17 22:00 09/29/17 21:59 09/03/17 06:18 5,000 UNIT Acetaminophen (Tylenol Tab) 650 mg Q4H PRN PO 08/30/17 20:00 09/29/17 19:59 Al Hydrox/Mg Hydrox/Simethicone (Maalox Max Susp) 15 ml Q4H PRN PO 08/30/17 20:00 09/29/17 19:59 Magnesium Hydroxide (Milk Of Magnesia Susp) 30 ml Q6H PRN PO 08/30/17 20:00 09/29/17 19:59 09/01/17 07:25 30 ML Polyethylene (Miralax Powder Packet) 17 gm DAILY PRN PO 08/30/17 20:00 09/29/17 19:59 09/02/17 07:11 17 GM Ondansetron HCl (Zofran Inj) 4 mg Q6H PRN IV 08/30/17 20:00 09/29/17 19:59 Albuterol/ Ipratropium (Duoneb) 3 ml Q6R INH 08/30/17 21:00 09/29/17 20:59 09/03/17 01:32 3 ML Baclofen (Lioresal Tab) 10 mg DAILY PRN PO 08/30/17 21:45 09/29/17 21:44 Budesonide/ Formoterol Fumarate (Symbicort 160/ 4.5 Inh) 2 puffs BID INH 08/31/17 08:00 09/30/17 07:59 09/03/17 07:50 2 PUFFS Diclofenac Sodium (Voltaren Tab) 75 mg DAILY PO 08/31/17 08:00 09/30/17 07:59 09/03/17 07:50 75 MG Levothyroxine Sodium (Synthroid Tab) 200 mcg DAILYBB PO 08/31/17 06:30 09/30/17 06:29 09/03/17 06:06 200 MCG Trazodone HCl (Desyrel Tab) 50 mg HS PO 08/30/17 22:00 09/29/17 21:59 09/02/17 21:27 50 MG Pantoprazole Sodium (Protonix Tab) 40 mg QAM PO 09/01/17 08:00 10/01/17 07:59 09/03/17 07:51 40 MG Albuterol Sulfate (Ventolin 0.083% 2.5MG/3ML Neb) 2.5 mg Q2R PRN INH 08/31/17 10:15 09/29/17 19:59 Ioversol (Optiray 320) 100 ml UD PRN IV 08/31/17 11:15 09/04/17 11:14 Nicotine (Nicoderm Cq 21MG Patch) 1 patch QAM TD 09/02/17 09:00 10/02/17 08:59 09/03/17 07:50 1 PATCH Miscellaneous (Remove Nicoderm Patch) 1 ea HS N/A 09/01/17 21:00 10/01/17 20:59 09/02/17 21:28 1 EA Codeine Phosphate/ Guaifenesin (Robitussin-AC Sugar Free Syrup) 10 ml Q6H PRN PO 09/01/17 10:00 10/01/17 09:59 Azithromycin 500 mg/Dextrose 255 ml @ 125 mls/hr DAILY IV 09/03/17 09:00 09/09/17 08:59 09/03/17 07:53 125 MLS/HR Piperacillin Sod/ Tazobactam Sod 3.375 gm/Dextrose 115 ml @ 28.75 mls/ hr Q8H IV 09/02/17 18:00 09/09/17 09:59 09/03/17 09:27 28.75 MLS/HR Vancomycin HCl (Consult) 1 ea UD N/A 09/02/17 10:11 10/02/17 10:10 Vancomycin HCl 1000 mg/Sodium Chloride 270 ml @ 125 mls/hr Q8H IV 09/02/17 20:00 09/09/17 19:59 09/03/17 04:09 125 MLS/HR Piperacillin Sod/ Tazobactam Sod (Consult) 1 ea UD PRN N/A 09/02/17 10:30 10/02/17 10:29 Glucose (Glucose 40% Gel) 15-30 GRAMS 15 GRAMS... UD PRN PO 09/03/17 07:00 10/03/17 06:59 Glucose (Glucose Chew Tab) 4-8 Tablets 4 Tabl... UD PRN PO 09/03/17 07:00 10/03/17 06:59 Dextrose (Dextrose 50% 50ML Syringe) 25-50ML OF 50% DW IV FOR... UD PRN IV 09/03/17 07:00 10/03/17 06:59 Glucagon (Glucagon Inj) 1 mg UD PRN SQ 09/03/17 07:00 10/03/17 06:59 Miscellaneous Information (Consult Glycemic Management Pharmacy) 1 UD N/A 09/03/17 08:11 10/03/17 08:10 Guaifenesin (Organidin Nr Tab) 200 mg Q4 PO 09/03/17 08:15 10/03/17 08:14 09/03/17 09:26 200 MG Insulin Human Regular (Insulin IV Infusion Protocol) 1 ea Q30M N/A 09/03/17 09:15 10/03/17 09:14 Insulin Aspart (novoLOG ASPART) SLIDING SCALE PCHS SC 09/03/17 12:00 10/03/17 11:59 Methylprednisolone Sodium Succinate 40 mg/Syringe 0.64 ml @ 1.5 mls/min Q8H IV 09/03/17 16:00 10/03/17 15:59 Vital Signs: Date Time Temp Pulse Resp B/P (MAP) Pulse Ox O2 Delivery O2 Flow Rate FiO2 09/03/17 08:00 84 32 121/55 (77) 92 Oxymask 8.0 09/03/17 08:00 Oxymask 8.0 09/03/17 06:01 64 30 105/55 (72) 92 Oxymask 8.0 09/03/17 04:01 36.9 69 24 88/46 (60) 93 Oxymask 8.0 09/03/17 04:00 Oxymask 8.0 09/03/17 02:01 86 17 119/75 (90) 91 Oxymask 8.0 09/03/17 01:49 85 24 112/71 (85) 90 Oxymask 8.0 09/03/17 01:32 87 22 93 Mask 8.0 09/03/17 00:39 36.6 78 28 111/54 (73) 93 Oxymask 8.0 09/02/17 23:59 Oxymask 8.0 09/02/17 22:01 84 26 94/58 (70) 94 Oxymask 8.0 09/02/17 21:01 98 39 119/63 (81) 91 Oxymask 8.0 09/02/17 20:01 36.4 78 26 126/79 (95) 92 Oxymask 8.0 09/02/17 20:00 Oxymask 8.0 09/02/17 19:51 74 24 92 Nasal Cannula 6.0 09/02/17 16:30 96 Oxymask 6.0 09/02/17 14:22 79 24 92 Nasal Cannula 6.0 09/02/17 11:00 96 Oxymask 6.0 09/02/17 10:39 36.5 86 24 96 45.0 Laboratory Results: Last 24 Hours Test 09/02/17 09:57 09/02/17 11:36 09/02/17 19:21 09/03/17 01:52 Arterial Blood pH 7.45 Arterial Blood Partial Pressure CO2 42 mmHg Arterial Blood Partial Pressure O2 65 mm/Hg Arterial Blood HCO3 28 mmol/L Arterial Blood Oxygen Saturation 92.4 % Arterial Blood Base Excess 3.9 mEq/L Arterial Blood Gas Delivery 45% HI FLOW Rinku Test POS Bedside Glucose 181 mg/dl Test 09/03/17 05:19 09/03/17 05:47 09/03/17 06:12 White Blood Count 16.34 K/uL Red Blood Count 3.94 M/uL Hemoglobin 11.9 g/dL Hematocrit 35.2 % Mean Corpuscular Volume 89.3 fL Mean Corpuscular Hemoglobin 30.2 pg Mean Corpuscular Hemoglobin Concent 33.8 g/dl RDW Standard Deviation 42.2 fL RDW Coefficient of Variation 12.9 % Platelet Count 324 K/uL Mean Platelet Volume 9.0 fL Sodium Level 138 mmol/L Potassium Level 4.6 mmol/L Chloride Level 103 mmol/L Carbon Dioxide Level 28 mmol/L Anion Gap 7.0 mmol/L Blood Urea Nitrogen 15 mg/dl Creatinine 0.96 mg/dl Est Creatinine Clear Calc Drug Dose 85.8 ml/min Estimated GFR () 115.7 Estimated GFR (Non- 99.9 BUN/Creatinine Ratio 16.2 Random Glucose 234 mg/dl Estimated Average Glucose 123 mg/dl Hemoglobin A1c 5.9 % Calcium Level 8.1 mg/dl Phosphorus Level 3.4 mg/dl Magnesium Level 2.9 mg/dl Blood Gas Sample Site L Radial Bedside Blood Gas pH (LAB) 7.46 Bedside Blood Gas pCO2 (LAB) 40 mmHg Bedside Blood Gas pO2 (LAB) 68 mmHg Bedside Blood Gas HCO3 (LAB) 29 meq/L Bedside Blood Gas Total CO2 30 mEq/l Bedside Blood Gas Base Excess (LAB) 5.0 meq/L Bedside Blood Gas O2 Saturation 95.0 % Rinku Test Pass Oxygen Delivery Device Other Bedside FiO2 0 % Bedside Glucose 223 mg/dl
--- NOTE | 2017-09-03 10:41 | Pharmacy Progress Note ---
Glycemic Control Intl Consult Date of Service Sep 03, 2017. Scope Glycemic Pharmacist consulted by Dr Emery on 09/03/17 for glycemic control and to write orders per [facility] inpatient glycemic control protocol Objective Weight (Kilograms): 74.100 Accuchecks BSG (last 24hrs): Test 09/03/17 01:52 09/03/17 05:19 09/03/17 06:12 Bedside Glucose 181 mg/dl (70-99) 223 mg/dl (70-99) Random Glucose 234 mg/dl (70-99) Laboratory Data (last 24hrs) Test 09/03/17 05:19 Anion Gap 7.0 mmol/L BUN/Creatinine Ratio 16.2 Blood Urea Nitrogen 15 mg/dl Creatinine 0.96 mg/dl Hemoglobin A1c 5.9 % Potassium Level 4.6 mmol/L Sodium Level 138 mmol/L White Blood Count 16.34 K/uL HbA1c Test 09/03/17 05:19 Hemoglobin A1c 5.9 % (4.5-5.6) H Recent Pertinent Medications Outpatient Anti-diabetic Regimen: * No prior h/o DM * A1c = 5.9% ("prediabetes" range) Risk Factors for Insulin Resistance: * Steroids: Solu-Medrol 60mg IV Q 6 hours, changed to 40mg IV Q 8 hours * Infection: COPD exac / asthma exac / pneumonia: receiving Vancomycin + Zosyn + Azithromycin IV * Diet: ordered T2DM diet * Mechanical Ventilation: No, however requiring 8L OxyMask Assessment & Plan ASSESSMENT: * 37 yo male with no prior h/o DM admitted to ICU for respiratory failure likely secondary to COPD/asthma exac, possible pneumonia * Receiving bronchodilators, antibiotics, and high dose IV steroids * Last 2 BSGs have been > 180 * A1 consistent w/ "prediabetes range" * Will initiate IV insulin infusion per moderate stress given ICU admission w/ continued IV steroid administration, but will also initiate some SQ insulin as well with hopes to transition the patient off the drip once glycemic control improved. PLAN FOR INPATIENT GLYCEMIC CONTROL: * Begin IV insulin infusion per moderate stress protocol; goal range 120 - 200mg /dL * Cover carb intake with Novolog; dose per IV insulin infusion adjustment calculator * Lantus 17 units SQ x 1 this AM * Continue the IV insulin drip until further notice. Consider conversion to basal/bolus regimen later today if glycemic control improved and once a feel for insulin requirements established on insulin infusion. * Please note that the plan above was derived based on current level of insulin resistance and hospital stress. These recommendations are appropriate for inpatient admission only. Plan of care upon discharge will need to be reassessed to avoid potential outpatient hypo/hyperglycemia. Thank you.
[2017-09-03] MEDS ORDERED: INSULIN GLARGINE SOLOSTAR 100 UNITS/ML 3 ML PEN SC ONE (11:00)
--- NOTE | 2017-09-03 11:09 | Critical Care Progress Note ---
Critical Care Progress Note Date of Service Sep 03, 2017. ICU Day ICU Day Number: [address] Prince Subjective Patient feeling better today, he denies acute overnight events. He feels his breathing has improved and he is now able to converse more easily than previously. He has not ambulated significantly. He does state ongoing nasal congestion. He denies CP, palpitations. He is tolerating diet without nausea or vomiting. He has some abdominal pain, but relates it to the subcutaneous heparin injections. He states he has no issues with voiding and his last BM was yesterday. Smoking cessation was discussed in details. Patient advised of management plans and questions answered to his satisfaction. Objective GENERAL: alert, sitting out of bed, no acute distress, non-toxic, oxymask in place HEAD: NC/AT. No sinus tenderness. EYES: Normal sclera and conjunctiva OROPHARYNX: No perioral cyanosis. No exudate, no erythema. Lips, buccal mucosa, and tongue normal and mucous membranes are dry NECK: Supple, no adenopathy, non-tender LUNGS: Normal chest wall mechanics but evidence of increased work of breathing, particularly during conversation. Diffuse inspiratory and expiratory wheezing, but good air movement. No crepitations or crackles HEART: RRR, S1 and S2 normal, no murmurs appreciated ABDOMEN: Soft, non-tender, normo-active bowel sounds, no masses, no rebound or guarding. SKIN: Warm, pink, dry. No erythema, rashes, or bruising. EXTREMITIES: Grossly normal. Moving all 4 limbs,No pitting edema. Calves supple. NEURO: Alert, Ox3. No focal deficits. Cranial nerves II-XII grossly intact, normal speech. PSYCH: Mood and affect appropriate. Current SOFA Score SOFA Score Response (Comments) Value Platelets (x10) > 150 0 Bilirubin (mg/dL) < 1.2 0 [place] Coma Score 15 0 Level of Hypotension No Hypotension 0 Creatinine (mg/dL) < 1.2 0 Total 0 Assessment & Plan Reason critically ill: 37 year old male presents with increased oxygen demand on a background of pneumonia and asthma. Neuro - CAM negative. - Continue to monitor for changes in mentation - Continue diclofenac, baclofen, trazodone CV - Vitals: HR 70-80s, SBP ranges 88-125 - Hemodynamically stable, continue to monitor on telemetry Resp - On 8L supplemental oxygen via oxymask, wean as tolerated. - AB.46/40.4/68/28.6 - Continue DuoNeb, Symbicort, reduce methylprednisone to 40mg q8h - Flonase and guaifenesin started for symptom relief GI/Nutrition - Diet: DM diet to reduce glucose - Miralax PRN constipation - GI ppx: Protonix Renal/ - Electrolytes WNL - [place] not indicated. Voiding well - Trend BMP ID - Antibiotics: vancomycin, zosyn, azithromycin - Leukocytosis - likely contributed to by steroid use - Monitor fever curve Endo - No personal hx DM, HbA1c 5.9, however glucose elevated likely secondary to steroids. Addition of basal insulin. Monitor glucose as per ICU protocol - Hypothyroid: Continue levothyroxine 200mcg Heme - H/H stable. Coag WNL - Trend CBC Access/Line - Peripheral IV VTE Prophylaxis - Heparin 5000 SC q8h Resident Physician Supervision Note: I was present with Dr. Moon during the history and exam. I discussed the case with the resident and agree with the findings and plan as documented in the note. Any exceptions or clarifications are listed here: Patient with h/o asthma, poor outpatient follow up, in ICU for hypoxic respiratory failure secondary to pneumonia. To continue Abx, was escalated to Vanco, Zosyn and azithromycin. Continue systemic steroids, decreased to 40 mg q 8 hourly. Doubt higher doses are beneficial. Also on Symbicort, bronchodilators. Patient making a slow recovery, but overall improving Follow up alpha-1 antitrypsin levels Recommend PFTs once improved clinically DVT prophylaxis: on heparin SC Critical care time spent with patient, consultants, reviewing chart and studies , greater than 25 minutes Documented By: Jack Prince Consults & Procedures Consultants: Critical care Pulmonology Procedures: Nil Data Medications: Current Inpatient Medications Medications (Trade) Dose Ordered Sig/Linette Route Start Time Stop Time Status Last Admin Dose Admin Heparin Sodium (Porcine) (Heparin Sq 5000 Unit/0.5ml) 5,000 unit Q8H SQ 08/30/17 22:00 09/29/17 21:59 09/03/17 06:18 5,000 UNIT Acetaminophen (Tylenol Tab) 650 mg Q4H PRN PO 08/30/17 20:00 09/29/17 19:59 Al Hydrox/Mg Hydrox/Simethicone (Maalox Max Susp) 15 ml Q4H PRN PO 08/30/17 20:00 09/29/17 19:59 Magnesium Hydroxide (Milk Of Magnesia Susp) 30 ml Q6H PRN PO 08/30/17 20:00 09/29/17 19:59 09/01/17 07:25 30 ML Polyethylene (Miralax Powder Packet) 17 gm DAILY PRN PO 08/30/17 20:00 09/29/17 19:59 09/02/17 07:11 17 GM Ondansetron HCl (Zofran Inj) 4 mg Q6H PRN IV 08/30/17 20:00 09/29/17 19:59 Albuterol/ Ipratropium (Duoneb) 3 ml Q6R INH 08/30/17 21:00 09/29/17 20:59 09/03/17 07:46 3 ML Baclofen (Lioresal Tab) 10 mg DAILY PRN PO 08/30/17 21:45 09/29/17 21:44 Budesonide/ Formoterol Fumarate (Symbicort 160/ 4.5 Inh) 2 puffs BID INH 08/31/17 08:00 09/30/17 07:59 09/03/17 07:50 2 PUFFS Diclofenac Sodium (Voltaren Tab) 75 mg DAILY PO 08/31/17 08:00 09/30/17 07:59 09/03/17 07:50 75 MG Levothyroxine Sodium (Synthroid Tab) 200 mcg DAILYBB PO 08/31/17 06:30 09/30/17 06:29 09/03/17 06:06 200 MCG Trazodone HCl (Desyrel Tab) 50 mg HS PO 08/30/17 22:00 09/29/17 21:59 09/02/17 21:27 50 MG Pantoprazole Sodium (Protonix Tab) 40 mg QAM PO 09/01/17 08:00 10/01/17 07:59 09/03/17 07:51 40 MG Albuterol Sulfate (Ventolin 0.083% 2.5MG/3ML Neb) 2.5 mg Q2R PRN INH 08/31/17 10:15 09/29/17 19:59 Ioversol (Optiray 320) 100 ml UD PRN IV 08/31/17 11:15 09/04/17 11:14 Nicotine (Nicoderm Cq 21MG Patch) 1 patch QAM TD 09/02/17 09:00 10/02/17 08:59 09/03/17 07:50 1 PATCH Miscellaneous (Remove Nicoderm Patch) 1 ea HS N/A 09/01/17 21:00 10/01/17 20:59 09/02/17 21:28 1 EA Codeine Phosphate/ Guaifenesin (Robitussin-AC Sugar Free Syrup) 10 ml Q6H PRN PO 09/01/17 10:00 10/01/17 09:59 Azithromycin 500 mg/Dextrose 255 ml @ 125 mls/hr DAILY IV 09/03/17 09:00 09/09/17 08:59 09/03/17 07:53 125 MLS/HR Piperacillin Sod/ Tazobactam Sod 3.375 gm/Dextrose 115 ml @ 28.75 mls/ hr Q8H IV 09/02/17 18:00 09/09/17 09:59 09/03/17 09:27 28.75 MLS/HR Vancomycin HCl (Consult) 1 ea UD N/A 09/02/17 10:11 10/02/17 10:10 Vancomycin HCl 1000 mg/Sodium Chloride 270 ml @ 125 mls/hr Q8H IV 09/02/17 20:00 09/09/17 19:59 09/03/17 04:09 125 MLS/HR Piperacillin Sod/ Tazobactam Sod (Consult) 1 ea UD PRN N/A 09/02/17 10:30 10/02/17 10:29 Glucose (Glucose 40% Gel) 15-30 GRAMS 15 GRAMS... UD PRN PO 09/03/17 07:00 10/03/17 06:59 Glucose (Glucose Chew Tab) 4-8 Tablets 4 Tabl... UD PRN PO 09/03/17 07:00 10/03/17 06:59 Dextrose (Dextrose 50% 50ML Syringe) 25-50ML OF 50% DW IV FOR... UD PRN IV 09/03/17 07:00 10/03/17 06:59 Glucagon (Glucagon Inj) 1 mg UD PRN SQ 09/03/17 07:00 10/03/17 06:59 Miscellaneous Information (Consult Glycemic Management Pharmacy) 1 ea UD N/A 09/03/17 08:11 10/03/17 08:10 Guaifenesin (Organidin Nr Tab) 200 mg Q4 PO 09/03/17 08:15 10/03/17 08:14 09/03/17 09:26 200 MG Insulin Human Regular (Insulin IV Infusion Protocol) 1 ea Q30M N/A 09/03/17 09:15 10/03/17 09:14 Insulin Aspart (novoLOG ASPART) SLIDING SCALE [facility] 09/03/17 12:00 10/03/17 11:59 Methylprednisolone Sodium Succinate 40 mg/Syringe 0.64 ml @ 1.5 mls/min Q8H IV 09/03/17 16:00 10/03/17 15:59 Vital Signs: Date Time Temp Pulse Resp B/P (MAP) Pulse Ox O2 Delivery O2 Flow Rate FiO2 09/03/17 09:50 77 26 92 Mask 8.0 09/03/17 08:00 84 32 121/55 (77) 92 Oxymask 8.0 09/03/17 08:00 Oxymask 8.0 09/03/17 06:01 64 30 105/55 (72) 92 Oxymask 8.0 09/03/17 04:01 36.9 69 24 88/46 (60) 93 Oxymask 8.0 09/03/17 04:00 Oxymask 8.0 09/03/17 02:01 86 17 119/75 (90) 91 Oxymask 8.0 09/03/17 01:49 85 24 112/71 (85) 90 Oxymask 8.0 09/03/17 01:32 87 22 93 Mask 8.0 09/03/17 00:39 36.6 78 28 111/54 (73) 93 Oxymask 8.0 09/02/17 23:59 Oxymask 8.0 09/02/17 22:01 84 26 94/58 (70) 94 Oxymask 8.0 09/02/17 21:01 98 39 119/63 (81) 91 Oxymask 8.0 09/02/17 20:01 36.4 78 26 126/79 (95) 92 Oxymask 8.0 09/02/17 20:00 Oxymask 8.0 09/02/17 19:51 74 24 92 Nasal Cannula 6.0 09/02/17 16:30 96 Oxymask 6.0 09/02/17 14:22 79 24 92 Nasal Cannula 6.0 09/02/17 11:00 96 Oxymask 6.0 09/02/17 10:39 36.5 86 24 96 45.0 Laboratory Results: Last 24 Hours Test 09/02/17 11:36 09/02/17 19:21 09/03/17 01:52 09/03/17 05:19 Bedside Glucose 181 mg/dl White Blood Count 16.34 K/uL Red Blood Count 3.94 M/uL Hemoglobin 11.9 g/dL Hematocrit 35.2 % Mean Corpuscular Volume 89.3 fL Mean Corpuscular Hemoglobin 30.2 pg Mean Corpuscular Hemoglobin Concent 33.8 g/dl RDW Standard Deviation 42.2 fL RDW Coefficient of Variation 12.9 % Platelet Count 324 K/uL Mean Platelet Volume 9.0 fL Sodium Level 138 mmol/L Potassium Level 4.6 mmol/L Chloride Level 103 mmol/L Carbon Dioxide Level 28 mmol/L Anion Gap 7.0 mmol/L Blood Urea Nitrogen 15 mg/dl Creatinine 0.96 mg/dl Est Creatinine Clear Calc Drug Dose 85.8 ml/min Estimated GFR () 115.7 Estimated GFR (Non- 99.9 BUN/Creatinine Ratio 16.2 Random Glucose 234 mg/dl Estimated Average Glucose 123 mg/dl Hemoglobin A1c 5.9 % Calcium Level 8.1 mg/dl Phosphorus Level 3.4 mg/dl Magnesium Level 2.9 mg/dl Test 09/03/17 05:47 09/03/17 06:12 Blood Gas Sample Site L Radial Bedside Blood Gas pH (LAB) 7.46 Bedside Blood Gas pCO2 (LAB) 40 mmHg Bedside Blood Gas pO2 (LAB) 68 mmHg Bedside Blood Gas HCO3 (LAB) 29 meq/L Bedside Blood Gas Total CO2 30 mEq/l Bedside Blood Gas Base Excess (LAB) 5.0 meq/L Bedside Blood Gas O2 Saturation 95.0 % Rinku Test Pass Oxygen Delivery Device Other Bedside FiO2 0 % Bedside Glucose 223 mg/dl Resident Tracking Resident Involvement: Resident Care Provided Care Provided: Adult Hospital Medicine
--- NOTE | 2017-09-03 11:25 | Medical Student: [facility] ---
Med Student History & Physical Date & Time of Service: Sep 03, 2017 at 11:05 Chief Complaint: Copd Exacerbation, Multifocal Pneumonia Primary Care Physician: No Doctor, Assigned History of Present Illness Source: patient This is a 37 year old male with a history of COPD and spina bfida who presented to the ED on 08/30 for shortness of breath and productive cough. Patient states that he had been feeling progressively short of breath over the last week, and he attributed that to "everyone in the house" getting sick with URIs. He states that his dyspnea got so bad that he was unable to do everyday tasks without having to pause to catch his breath. He was using his son's nebulizer every four hours for the 5 days prior to coming to the ED, and he states that it stopped helping him after day 5, which is why he came in. He was also coughing up green/thick sputum and had a headache upon admission that has resolved. Today he states that he is "breathing better" and is able to speak consistently without getting short of breath for the first time in over a week. He denies fever, chills, nausea, vomiting, claudication, new-onset chest pain, palpitations. Admits to smoking 1.5-2 packs of cigarettes per day (though he has not smoked since Sunday "because I was getting sick"). He has been admitted for pneumonia/COPD twice. CXR in ED showed multifocal consolidations consistent with pneumonia or possible atelectasis. CTA showed no PE with possible inflammatory pneumonitis and/or atelectasis. Repeat CXR showed mild improvement. O2 sat is 92% on mask this morning. Currently on IV Zosyn, azithromycin, and vancomycin for pneumonia treatment per pulmonology. Past Medical/Surgical History Medical Problems: (1) Abscess of groin, right Status: Acute (2) Back strain Status: Acute (3) Bilateral pneumonia Status: Acute (4) Dyspnea Status: Acute (5) Rash Status: Acute Social History Smoking Status: Current Every Day Smoker (1.5-2 packs per day) Marital Status: single Housing status: lives with family Occupational Status: employed Immunizations History of Influenza Vaccine: No History of Tetanus Vaccine?: Yes History of Pneumococcal: No History of Hepatitis B Vaccine: No Allergies Coded Allergies: Latex (Verified Allergy, Severe, HIVES/SHORT OF BREATH, 08/30/17) HAS SPINA BIFIDA, CAN NOT BE IN CONTACT WITH LATEX Pt reports both rash and SOB Latex2 -Systemic Allergic Response (Verified Allergy, Severe, SHORTNESS OF BREATH, 08/30/17) Medications Albuterol Hfa (Ventolin Hfa), 1-2 PUFFS INH Q4-6HRS PRN for SOB/Wheezing Baclofen (Baclofen), 10 MG PO DAILY PRN for Abdominal Pain Budesonide/Formoterol Fumarate (Symbicort 160/4.5 Inhaler), 2 PUFFS INH BID Diclofenac Sod (Diclofenac Sodium Dr), 75 MG PO DAILY Levothyroxine Sodium (Levothyroxine Sodium), 200 MCG PO DAILY Trazodone Hcl (Trazodone), 50 MG PO HS Review of Systems Constitutional: No fever, No chills, No sweats Respiratory: + cough, + sputum (was green; now clear), + wheezing, + shortness of breath, + dyspnea on exertion, + dyspnea at rest Cardiovascular: No chest pain, No edema, No claudication Abdomen: No nausea, No vomiting Musculoskeletal: No swelling, No calf pain Integumentary: No color change Physical Exam Vital Signs (24 Hours) Date Time Temp Pulse Resp B/P (MAP) Pulse Ox O2 Delivery O2 Flow Rate FiO2 09/03/17 09:50 77 26 92 Mask 8.0 09/03/17 08:00 84 32 121/55 (77) 92 Oxymask 8.0 09/03/17 08:00 Oxymask 8.0 09/03/17 06:01 64 30 105/55 (72) 92 Oxymask 8.0 09/03/17 04:01 36.9 69 24 88/46 (60) 93 Oxymask 8.0 09/03/17 04:00 Oxymask 8.0 09/03/17 02:01 86 17 119/75 (90) 91 Oxymask 8.0 09/03/17 01:49 85 24 112/71 (85) 90 Oxymask 8.0 09/03/17 01:32 87 22 93 Mask 8.0 09/03/17 00:39 36.6 78 28 111/54 (73) 93 Oxymask 8.0 09/02/17 23:59 Oxymask 8.0 09/02/17 22:01 84 26 94/58 (70) 94 Oxymask 8.0 09/02/17 21:01 98 39 119/63 (81) 91 Oxymask 8.0 09/02/17 20:01 36.4 78 26 126/79 (95) 92 Oxymask 8.0 09/02/17 20:00 Oxymask 8.0 09/02/17 19:51 74 24 92 Nasal Cannula 6.0 09/02/17 16:30 96 Oxymask 6.0 09/02/17 14:22 79 24 92 Nasal Cannula 6.0 General Appearance: + mild distress (On non-rebreather mask) Head: normocephalic, atraumatic Eyes: normal inspection ENT: + pertinent finding (mask for O2) Neck: supple, no adenopathy Respiratory/Chest: + respiratory distress, + decreased breath sounds, + accessory muscle use, + wheezing (Expiratory, bilateral) Cardiovascular: regular rate, rhythm, no edema, no murmur Abdomen/GI: normal bowel sounds, non tender Extremities/Musculoskelatal: no pedal edema, + pertinent finding (ambulates with cane at baseline) 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 Skin: normal color, warm/dry Diagnostics Laboratory Results Results Past 24 Hours Test 09/02/17 11:36 09/02/17 19:21 09/03/17 01:52 09/03/17 05:19 Range/Units Bedside Glucose 181 70-99 mg/dl White Blood Count 16.34 4.8-10.8 K/uL Red Blood Count 3.94 4.7-6.1 M/uL Hemoglobin 11.9 14.0-18.0 g/dL Hematocrit 35.2 42-52 % Mean Corpuscular Volume 89.3 80-100 fL Mean Corpuscular Hemoglobin 30.2 25-34 pg Mean Corpuscular Hemoglobin Concent 33.8 32-36 g/dl RDW Standard Deviation 42.2 36.4-46.3 fL RDW Coefficient of Variation 12.9 11.5-14.5 % Platelet Count 324 130-400 K/uL Mean Platelet Volume 9.0 7.4-10.4 fL Sodium Level 138 136-145 mmol/L Potassium Level 4.6 3.5-5.1 mmol/L Chloride Level 103 98-107 mmol/L Carbon Dioxide Level 28 21-32 mmol/L Anion Gap 7.0 3-11 mmol/L Blood Urea Nitrogen 15 7-18 mg/dl Creatinine 0.96 0.60-1.40 mg/dl Est Creatinine Clear Calc Drug Dose 85.8 ml/min Estimated GFR () 115.7 Estimated GFR (Non- 99.9 BUN/Creatinine Ratio 16.2 10-20 Random Glucose 234 70-99 mg/dl Estimated Average Glucose 123 mg/dl Hemoglobin A1c 5.9 4.5-5.6 % Calcium Level 8.1 8.5-10.1 mg/dl Phosphorus Level 3.4 2.5-4.9 mg/dl Magnesium Level 2.9 1.8-2.4 mg/dl Test 09/03/17 05:47 09/03/17 06:12 Range/Units Blood Gas Sample Site L Radial Bedside Blood Gas pH (LAB) 7.46 7.35-7.45 Bedside Blood Gas pCO2 (LAB) 40 35-46 mmHg Bedside Blood Gas pO2 (LAB) 68 80-95 mmHg Bedside Blood Gas HCO3 (LAB) 29 19-24 meq/L Bedside Blood Gas Total CO2 30 24-31 mEq/l Bedside Blood Gas Base Excess (LAB) 5.0 -9-1.8 meq/L Bedside Blood Gas O2 Saturation 95.0 90-95 % Rinku Test Pass Oxygen Delivery Device Other Bedside FiO2 0 % Bedside Glucose 223 70-99 mg/dl Impression Assessment and Plan Assessment/Plan: This is a 37-year-old gentleman with a history of pneumonia/asthma exacerbation and spina bifida who presented to the ED 08/30 with severe shortness of breath and productive cough. DDx includes pneumonia, asthma exacerbation, COPD, PE, bronchitis, CHF. Primary: pneumonia/asthma exacerbation -Continue IV Zosyn, vancomycin, azithromycin per pulmonology; consider discontinuing Zosyn and vanco given that this appears to be atypical pneumonia -Repeat CXR -Continue O2 protocol - was 92% sat on mask this morning -Continue IV prednisolone -Continue Duo-Neb treatments -Continue Symbicort -Obtain PFTs when able -Monitor blood cultures -Pulmonology consult Secondary: tobacco use -Offer nicotine patch -Inpatient smoking cessation counseling followed by outpatient counseling -Establish new PCP per patient Hypothyroid: -Continue Synthroid Insomnia: -Continue trazodone Level of Care Critical Care Advanced Directives Existing Living Will: No Existing Power of Assembler Piano: No Resuscitation Status FULL RESUSCITATION
[2017-09-03] MEDS ORDERED: VANCOMYCIN TROUGH ONE (11:30)
[2017-09-03] MEDS ORDERED: NovoLIN-R BOLUS FROM BAG IV ONE (11:45)
[2017-09-03] MEDS: INSULIN REGULAR 250 UNITS in SODIUM CHLORIDE 0.9% 250ML 250 ML IV SCH (11:59)
[2017-09-03] MEDS: INSULIN ASPART 100 UNITS/ML 3 ML PEN SC SCH ×3 (12:00→21:00)
--- NOTE | 2017-09-03 13:00 | Pharmacy Progress Note ---
Pharmacy Abx Dose Short Note Date of Service Sep 03, 2017. Assessment & Plan Assessment * 37 year old male receiving VANCOMYCIN IV (dosing per pharmacy) + ZOSYN IV ( dosing per pharmacy) + AZITHROMYCIN IV for treatment of COPD/asthma exacerbation /multifocal pneumonia; without improvement despite LEVOFLOXACIN IV x 4 days * Patient's respiratory status worsened 09/02 and patient was transferred to ICU for escalation of care * 09/01 CXR: b/l basilar opacities (pulm edema vs pneumonia) reported * Cultures remain negative; MRSA nasal swab also negative 09/02 lessening possibility of MRSA PNX * Day # 2 (vanco + zosyn +azithromycin) but Day # 5 of overall antimicrobial therapy * He has been afebrile since admission, WBC is elevated however he is receiving high dose IV steroid therapy, still requiring 8L O2 via OxyMask to maintain sats 91-92%; maintaining SBP > 90, however did dip to 88 once overnight * Renal fxn appears stable and unchanged Plan Vancomycin * Trough level of 12.9 mcg/mL is subtherapeutic however was drawn after only two maintenance doses and may continue to climb w/ repeat doses. Other doses were hung on time and level was drawn at the appropriate time. * Continue dose of 1000 mg (~14mg/kg) IV every 8 hours * Goal trough level for pulmonary infxn : 15 to 20 mcg/mL * Will recheck trough level in 24 hrs to confirm level is climbing to desired goal range Pharmacy will continue to follow and will adjust dose/frequency as necessary. Thank you.
[2017-09-03] MEDS: METHYLPREDNISOLONE IV 40 MG in SYRINGE 0 ML IV SCH (16:04)
--- NOTE | 2017-09-03 16:32 | DIAGNOSTIC IMAGING REPORT ---
CHEST ONE VIEW PORTABLE HISTORY: 37 years-old Male FOLLOW UP PNEUMONIA follow-up study in a patient with pneumonia COMPARISON: Chest radiograph 09/01/2017, CTA chest 08/31/2017 TECHNIQUE: Upright AP view of the chest FINDINGS: Cardiomediastinal and hilar silhouettes are within normal limits. Mild diffuse reticulonodular opacities redemonstrated. Alveolar opacities of the lung bases appear generally unchanged. No pneumothorax or pleural effusion. Bones of the chest are grossly intact. IMPRESSION: 1. Mild diffuse reticular nodular opacities of the bilateral lungs in a multilobar distribution are again seen correlating with areas of multifocal tree-in-bud nodularity on comparison CT suggesting infectious bronchiolitis. 2. Ill-defined alveolar opacities of the lung bases appear unchanged suggesting pneumonia. The above report was generated using voice recognition software. It may contain grammatical, syntax or spelling errors. Electronically signed by: Sina Crowder M.D. 09/03/2017 4:30 PM Dictated Date/Time: 09/03/2017 4:28 PM
--- NOTE | 2017-09-03 18:43 | Progress Note ---
Subjective Date of Service: Sep 03, 2017. Subjective Pt evaluation today including: conversation w/ patient, physical exam, chart review, lab review, review of studies, conversation w/ national sales consultant, review of inpatient medication list pt seen twice today, labs and studies reviewed, d/w ICU team as well as pulmonary. feeling better as day progresses, less dyspnea, less conversational dyspnea. cough (+) sputum no f/c/s son was sick as well smokes ~3/4 ppd - clarifies that it's his brother that smokes 1.5-2ppd notes he's willing to quit but just worries taht he'll switch to eating or something nothing that when other relatives have quit smoking they've gained a lot of weight and became diabetic Problem List Medical Problems: (1) Abscess of groin, right Status: Acute (2) Back strain Status: Acute (3) Bilateral pneumonia Status: Acute (4) Dyspnea Status: Acute (5) Rash Status: Acute Review of Systems all other ROS otherwise negative except for as above Objective Vital Signs Date Time Temp Pulse Resp B/P (MAP) Pulse Ox O2 Delivery O2 Flow Rate FiO2 09/03/17 18:10 80 24 94 Oxymask 8.0 09/03/17 16:02 75 24 95 Oxymask 8.0 09/03/17 16:00 Oxymask 8.0 09/03/17 14:22 77 24 94 Nasal Cannula 7.0 09/03/17 14:14 36.7 77 30 106/67 (80) 94 Oxymask 8.0 09/03/17 12:00 87 30 91 Oxymask 8.0 09/03/17 12:00 Oxymask 8.0 09/03/17 10:00 78 32 120/87 (98) 92 Oxymask 8.0 09/03/17 09:50 77 26 92 Mask 8.0 09/03/17 08:00 84 32 121/55 (77) 92 Oxymask 8.0 09/03/17 08:00 Oxymask 09/03/17 08:00 Oxymask 8.0 09/03/17 06:01 64 30 105/55 (72) 92 Oxymask 8.0 09/03/17 04:01 36.9 69 24 88/46 (60) 93 Oxymask 8.0 09/03/17 04:00 Oxymask 8.0 09/03/17 02:01 86 17 119/75 (90) 91 Oxymask 8.0 09/03/17 01:49 85 24 112/71 (85) 90 Oxymask 8.0 09/03/17 01:32 87 22 93 Mask 8.0 09/03/17 00:39 36.6 78 28 111/54 (73) 93 Oxymask 8.0 09/02/17 23:59 Oxymask 8.0 09/02/17 22:01 84 26 94/58 (70) 94 Oxymask 8.0 09/02/17 21:01 98 39 119/63 (81) 91 Oxymask 8.0 09/02/17 20:01 36.4 78 26 126/79 (95) 92 Oxymask 8.0 09/02/17 20:00 Oxymask 8.0 09/02/17 19:51 74 24 92 Nasal Cannula 6.0 Physical Exam General Appearance: no apparent distress Eyes: EOMI ENT: hearing grossly normal Neck: trachea midline Respiratory/Chest: no respiratory distress, no accessory muscle use, + wheezing (diffuse wheezing but clears as the day progresses) Cardiovascular: regular rate, rhythm (distant) Extremities: normal range of motion 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/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 as 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, alert, normal mood/affect Skin: normal color, warm/dry Laboratory Results Last 24 Hours Test 09/03/17 01:52 09/03/17 05:19 09/03/17 05:47 09/03/17 06:12 Bedside Glucose 181 mg/dl 223 mg/dl White Blood Count 16.34 K/uL Red Blood Count 3.94 M/uL Hemoglobin 11.9 g/dL Hematocrit 35.2 % Mean Corpuscular Volume 89.3 fL Mean Corpuscular Hemoglobin 30.2 pg Mean Corpuscular Hemoglobin Concent 33.8 g/dl RDW Standard Deviation 42.2 fL RDW Coefficient of Variation 12.9 % Platelet Count 324 K/uL Mean Platelet Volume 9.0 fL Sodium Level 138 mmol/L Potassium Level 4.6 mmol/L Chloride Level 103 mmol/L Carbon Dioxide Level 28 mmol/L Anion Gap 7.0 mmol/L Blood Urea Nitrogen 15 mg/dl Creatinine 0.96 mg/dl Est Creatinine Clear Calc Drug Dose 85.8 ml/min Estimated GFR () 115.7 Estimated GFR (Non- 99.9 BUN/Creatinine Ratio 16.2 Random Glucose 234 mg/dl Estimated Average Glucose 123 mg/dl Hemoglobin A1c 5.9 % Calcium Level 8.1 mg/dl Phosphorus Level 3.4 mg/dl Magnesium Level 2.9 mg/dl Blood Gas Sample Site L Radial Bedside Blood Gas pH (LAB) 7.46 Bedside Blood Gas pCO2 (LAB) 40 mmHg Bedside Blood Gas pO2 (LAB) 68 mmHg Bedside Blood Gas HCO3 (LAB) 29 meq/L Bedside Blood Gas Total CO2 30 mEq/l Bedside Blood Gas Base Excess (LAB) 5.0 meq/L Bedside Blood Gas O2 Saturation 95.0 % Rinku Test Pass Oxygen Delivery Device Other Bedside FiO2 0 % Test 09/03/17 11:33 09/03/17 11:36 09/03/17 13:13 09/03/17 14:09 Bedside Glucose 222 mg/dl 221 mg/dl 184 mg/dl Vancomycin Level Trough 12.9 mcg/ml Test 09/03/17 14:55 09/03/17 15:56 09/03/17 16:14 09/03/17 16:29 Bedside Glucose 151 mg/dl 111 mg/dl 105 mg/dl 109 mg/dl Test 09/03/17 16:46 09/03/17 17:01 09/03/17 18:04 Bedside Glucose 102 mg/dl 105 mg/dl 127 mg/dl Assessment and Plan hypoxia and respiratory distress -due to infectious process - atypicals vs viral most likely -continue zithromax, d/w ICU team for now since he didnt' start to improve until after zosyn and anabelo will continue, but low threshold to dc -continue steroids, nebs, O2, and supportive care ?asthma vs restrictive lung disease -no old PFTs -for now managing as asthma exacerbated by atypical pneumonia -as above -improving -PFTs as outpt spina bifida -doesn't show gross deformity that would hint at restrictive disease -ongoing home meds -again outpt PFTs as above tobacco abuse -counselled to quit - he agrees and simultaneously seems motivated and yet seems to lack insight - will try to continue this avenue DVT proph -heparin SQ hypothyroidism -continue synthroid hyperglycemia -a1c 5.9 - mild impaired glucose tolerance -steroid effect acutely - insulins Continued [facility] stay due to: multiple IV medications needed Discharge planning: home
[2017-09-03] MEDS ORDERED: INSULIN GLARGINE SOLOSTAR 100 UNITS/ML 3 ML PEN SC SCH (21:00)
[2017-09-03] MEDS: FLUTICASONE PROPIONATE NA SPR 16 GM BTL SCH (21:09)
[2017-09-03] MEDS: TRAZODONE HCL 50 MG TAB PO SCH (21:09)
[2017-09-04] VITALS (16 sets, daily range): BP systolic 100–130; BP diastolic 54–80; PULSE 59–107; TEMP 36.5–36.9; O2SAT 90–97
[2017-09-04] MEDS: GUAIFENESIN 200 MG TAB PO SCH ×7 (00:09→23:54)
[2017-09-04] MEDS: METHYLPREDNISOLONE IV 40 MG in SYRINGE 0 ML IV SCH ×3 (00:09→20:33)
[2017-09-04] MEDS: ALBUT/IPRATROP 3MG/0.5MG NEB 3 ML VIAL INH SCH ×4 (01:44→18:55)
[2017-09-04] MEDS: PIPERACILL/TAZOBAC IV 3.375 GM in DEXTROSE 5% 100ML 100 ML IV SCH ×3 (03:05→19:02)
[2017-09-04] MEDS: VANCOMYCIN INJ 1,000 MG in SODIUM CHLORIDE 0.9% 250ML 250 ML IV SCH (04:36)
[2017-09-04] MEDS: LEVOTHYROXINE 200 MCG TAB PO SCH (05:08)
[2017-09-04] MEDS: HEPARIN SOD 5000 UNIT/0.5 ML CARP SQ SCH ×3 (05:13→21:30)
[2017-09-04 05:48] LABS: HEMATOCRIT 36.8 % (42-52); MEAN CORPUSCULAR HEMOGLOBIN 30.1 pg (25-34); MEAN CORPUSCULAR HGB CONC 33.4 g/dl (32-36); PLATELET COUNT 357 K/uL (130-400); RED BLOOD COUNT 4.09 M/uL (4.7-6.1); WHITE BLOOD COUNT 19.92 K/uL (4.8-10.8)
[2017-09-04 06:20] LABS: BUN/CREATININE RATIO 21.3 (10-20); CALCIUM 8.5 mg/dl (8.5-10.1); CREATININE 0.92 mg/dl (0.60-1.40); MAGNESIUM 2.8 mg/dl (1.8-2.4); POTASSIUM 4.5 mmol/L (3.5-5.1)
[2017-09-04 06:23] LABS: ALB/GLOB RATIO 0.8 (0.9-2); PHOSPHORUS 3.4 mg/dl (2.5-4.9)
[2017-09-04 06:38] LABS: BASO % 0.3 %; BASO ABS # 0.05 K/uL (0-0.2); COMPLETE YES; IG% 9.5 %; MONO % 5.9 %; NEUT % 76.3 %; VACUOLIZATION OCCASIONAL
[2017-09-04] MEDS: INSULIN GLARGINE SOLOSTAR 100 UNITS/ML 3 ML PEN SC SCH ×2 (07:41→21:31)
[2017-09-04] MEDS: AZITHROMYCIN IV 500 MG in DEXTROSE 5% 250ML 250 ML IV SCH (07:41)
[2017-09-04] MEDS: PANTOprazole SOD 40 MG TAB PO SCH (07:41)
[2017-09-04] MEDS: BUDESONIDE/FORMOTEROL FUMARATE 160/4.5 60 PUFFS/INHALER INH SCH ×2 (07:42→20:34)
[2017-09-04] MEDS: NICOTINE 21 MG/24 HR TDSY TD SCH (07:42)
[2017-09-04] MEDS: FLUTICASONE PROPIONATE NA SPR 16 GM BTL SCH ×2 (07:42→20:34)
[2017-09-04] MEDS: DICLOFENAC SOD EC 75 MG TABCR PO SCH (07:42)
[2017-09-04] MEDS: INSULIN ASPART 100 UNITS/ML 3 ML PEN SC SCH ×4 (07:43→21:32)
--- NOTE | 2017-09-04 08:24 | Medical Student: [facility] ---
Med Student Progress Note Date of Service Sep 04, 2017. Subjective Pt evaluation today including: conversation w/ patient Voiding: no voiding problems Russ is doing better today. He was sitting up out of his chair and was speaking with me for several minutes without getting short of breath. He states that he breathing is better, and that he has been able to walk around his room without dyspnea. Still has some audible wheezing and coughing but this is baseline for him due to his extensive asthma history. He is still using the nebulizer and says that is helping. Repeat CXR showed mild improvement in multifocal consolidations, consistent with pneumonia and/or infectious bronchiolitis. Denies fever, chills, chest pain, nausea, vomiting, claudication , palpitations. Is eating and drinking well and has no problems moving bowels or voiding. Goal is to move him off the ICU today. Review of Systems Constitutional: No fever, No chills Respiratory: + cough, + wheezing, + shortness of breath, No sputum Cardiac: No chest pain, No orthopnea Abdomen: No pain, No nausea, No vomiting Male : No dysuria, No urinary frequency All Other Systems: Reviewed and Negative Objective Vital Signs Date Time Temp Pulse Resp B/P (MAP) Pulse Ox O2 Delivery O2 Flow Rate FiO2 09/04/17 08:00 Oxymask 8.0 09/04/17 07:06 71 20 96 Mask 8.0 09/04/17 06:00 62 25 95 Oxymask 8.0 09/04/17 04:00 59 21 100/54 (69) 95 Oxymask 8.0 09/04/17 04:00 Oxymask 8.0 09/04/17 02:00 75 24 90 Oxymask 8.0 09/04/17 01:45 84 20 94 Mask 8.0 09/04/17 00:01 36.7 65 31 130/72 (91) 95 Oxymask 8.0 09/03/17 23:59 Oxymask 8.0 09/03/17 22:00 73 33 129/77 (94) 95 Oxymask 8.0 09/03/17 20:00 36.7 91 36 94 Oxymask 8.0 09/03/17 20:00 Oxymask 8.0 09/03/17 19:36 90 20 94 Mask 8.0 11/13/17 18:10 80 24 94 Oxymask 8.0 09/03/17 16:02 75 24 95 Oxymask 8.0 09/03/17 16:00 Oxymask 8.0 09/03/17 14:22 77 24 94 Nasal Cannula 7.0 09/03/17 14:14 36.7 77 30 106/67 (80) 94 Oxymask 8.0 09/03/17 12:00 87 30 91 Oxymask 8.0 09/03/17 12:00 Oxymask 8.0 09/03/17 10:00 78 32 120/87 (98) 92 Oxymask 8.0 09/03/17 09:50 77 26 92 Mask 8.0 Physical Exam General Appearance: WD/WN, + mild distress (On mask and 8 L O2) ENT: normal ENT inspection, + pertinent finding (deafness in right ear; is baseline) Neck: supple, no adenopathy Respiratory/Chest: + respiratory distress, + decreased breath sounds, + accessory muscle use, + wheezing (Worst at right lung base) Cardiovascular: regular rate, rhythm, no edema, no murmur Abdomen: normal bowel sounds, non tender, soft Extremities: normal inspection, no pedal edema, + pertinent finding (Uses cane to ambulate; is baseline) Neurologic/Psychiatric: alert, normal mood/affect, oriented x 3 Skin: normal color, warm/dry Laboratory Results Last 24 Hours Test 09/03/17 11:33 09/03/17 11:36 09/03/17 13:13 09/03/17 14:09 Bedside Glucose 222 mg/dl 221 mg/dl 184 mg/dl Vancomycin Level Trough 12.9 mcg/ml Test 09/03/17 14:55 09/03/17 15:56 09/03/17 16:14 09/03/17 16:29 Bedside Glucose 151 mg/dl 111 mg/dl 105 mg/dl 109 mg/dl Test 09/03/17 16:46 09/03/17 17:01 09/03/17 18:04 09/03/17 19:10 Bedside Glucose 102 mg/dl 105 mg/dl 127 mg/dl 161 mg/dl Test 09/03/17 20:05 09/03/17 21:07 09/03/17 22:03 09/03/17 23:06 Bedside Glucose 173 mg/dl 182 mg/dl 151 mg/dl 165 mg/dl Test 09/04/17 00:11 09/04/17 01:10 09/04/17 03:07 09/04/17 05:12 Bedside Glucose 181 mg/dl 174 mg/dl 161 mg/dl 156 mg/dl Test 09/04/17 05:18 09/04/17 07:55 White Blood Count 19.92 K/uL Red Blood Count 4.09 M/uL Hemoglobin 12.3 g/dL Hematocrit 36.8 % Mean Corpuscular Volume 90.0 fL Mean Corpuscular Hemoglobin 30.1 pg Mean Corpuscular Hemoglobin Concent 33.4 g/dl Platelet Count 357 K/uL Mean Platelet Volume 9.0 fL Neutrophils (%) (Auto) 76.3 % Lymphocytes (%) (Auto) 8.0 % Monocytes (%) (Auto) 5.9 % Eosinophils (%) (Auto) 0.0 % Basophils (%) (Auto) 0.3 % Neutrophils # (Auto) 15.20 K/uL Lymphocytes # (Auto) 1.60 K/uL Monocytes # (Auto) 1.18 K/uL Eosinophils # (Auto) 0.00 K/uL Basophils # (Auto) 0.05 K/uL RDW Standard Deviation 42.9 fL RDW Coefficient of Variation 13.2 % Immature Granulocyte % (Auto) 9.5 % Immature Granulocyte # (Auto) 1.89 K/uL Toxic Vacuolation OCCASIONAL Sodium Level 140 mmol/L Potassium Level 4.5 mmol/L Chloride Level 106 mmol/L Carbon Dioxide Level 27 mmol/L Anion Gap 7.0 mmol/L Blood Urea Nitrogen 20 mg/dl Creatinine 0.92 mg/dl Est Creatinine Clear Calc Drug Dose 91.8 ml/min Estimated GFR () 121.9 Estimated GFR (Non- 105.1 BUN/Creatinine Ratio 21.3 Random Glucose 156 mg/dl Calcium Level 8.5 mg/dl Phosphorus Level 3.4 mg/dl Magnesium Level 2.8 mg/dl Total Bilirubin 0.2 mg/dl Aspartate Amino Transf (AST/SGOT) 50 U/L Alanine Aminotransferase (ALT/SGPT) 215 U/L Alkaline Phosphatase 83 U/L Total Protein 6.0 gm/dl Albumin 2.6 gm/dl Globulin 3.4 gm/dl Albumin/Globulin Ratio 0.8 Bedside Glucose 164 mg/dl Assessment and Plan Problems Abscess of groin, right Back strain Bilateral pneumonia Dyspnea Otitis media Rash COPD (chronic obstructive pulmonary disease) Assessment and Plan: Assessment/Plan: This is a 37-year-old gentleman with a history of pneumonia/asthma exacerbation and spina bifida who presented to the ED 08/30 with severe shortness of breath and productive cough. DDx includes pneumonia, asthma exacerbation, COPD, PE, bronchitis, CHF. Primary: pneumonia/asthma exacerbation -Continue IV Zosyn, azithromycin per pulmonology; discontinue vanco given nasal swap is MRSA-negative -Urine Legionella is negative; Mycobacterium results pending -Repeat CXR - showed mild improvement in multifocal opacities -Continue O2 protocol - was 91% sat on mask this morning -Continue IV prednisolone -Continue Duo-Neb treatments -Continue Symbicort -Obtain PFTs when able -Monitor blood cultures -Goal is to move his off the ICU Secondary: tobacco use -Offer nicotine patch -Inpatient smoking cessation counseling followed by outpatient counseling -Establish new PCP per patient Hyperglycemia: -Likely due to steroids; A1c of 5.9 -Will treat with insulin acutely Hypothyroid: -Continue Synthroid Insomnia: -Continue trazodone Continued [facility] stay due to: multiple IV medications needed Discharge planning: home
[2017-09-04 10:52] LABS: LEGIONELLA ANTIGEN NOT DETECTED (NOT DETECTED)
--- NOTE | 2017-09-04 11:12 | Critical Care Progress Note ---
Critical Care Progress Note Date of Service Sep 04, 2017. ICU Day ICU Day Number: [address] Prince Subjective Patient feeling well today, he denies acute overnight events. He feels his breathing and congestion has improved. He is ambulating around the room without issue, although he is still receiving supplemental oxygen. He denies CP, palpitations. He is tolerating diet without nausea or vomiting. He has some abdominal pain from the subcutaneous heparin injections. He denies issues with sleep, voiding and BM. Patient advised of management plans and questions answered to his satisfaction Objective GENERAL: alert, sitting out of bed, no acute distress, non-toxic, oxymask in place HEAD: NC/AT. No sinus tenderness. EYES: Normal sclera and conjunctiva OROPHARYNX: No perioral cyanosis. No exudate, no erythema. Lips, buccal mucosa, and tongue normal and mucous membranes are dry NECK: Supple, no adenopathy, non-tender LUNGS: Normal chest wall mechanics but evidence of increased work of breathing, particularly during conversation. Diffuse inspiratory and expiratory wheezing, but good air movement. No crepitations or crackles HEART: RRR, S1 and S2 normal, no murmurs appreciated ABDOMEN: Soft, non-tender, normo-active bowel sounds, no masses, no rebound or guarding. SKIN: Warm, pink, dry. No erythema, rashes, or bruising. EXTREMITIES: Grossly normal. Moving all 4 limbs,No pitting edema. Calves supple. NEURO: Alert, Ox3. No focal deficits. Cranial nerves II-XII grossly intact, normal speech. PSYCH: Mood and affect appropriate. Current SOFA Score SOFA Score Response (Comments) Value Platelets (x10) > 150 0 Bilirubin (mg/dL) < 1.2 0 Macey Coma Score 15 0 Level of Hypotension No Hypotension 0 Creatinine (mg/dL) < 1.2 0 Total 0 Assessment & Plan Reason critically ill: 37 year old male presents with increased oxygen demand on a background of pneumonia and asthma. Neuro - CAM negative. - Continue to monitor for changes in mentation - Continue diclofenac, baclofen, trazodone CV - Vitals: HR 60-90, SBP 100-130 - Hemodynamically stable, continue to monitor on telemetry Resp - On 8L supplemental oxygen via oxymask, wean as tolerated. - Continue DuoNeb, Symbicort, reduce methylprednisone to 40mg q12h - Flonase and guaifenesin started for symptom relief - Urine legionella negative. Mycoplasma pending. GI/Nutrition - Diet: DM diet to reduce glucose - Mild derangement of LFTs. Given concurrent lung issues, check alpha-1 antitrypsin - pending - Miralax PRN constipation - GI ppx: Protonix Renal/ - Electrolytes WNL - [place]pton not indicated. Voiding well - Trend BMP ID - Antibiotics: Zosyn and azithromycin. Vancomycin discontinued. - Leukocytosis - likely contributed to by steroid use - Monitor fever curve Endo - No personal hx DM, HbA1c 5.9, however glucose elevated likely secondary to steroids. Addition of basal insulin. Monitor glucose as per ICU protocol - Hypothyroid: Continue levothyroxine 200mcg Heme - H/H stable. Coag WNL - Trend CBC Access/Line - Peripheral IV VTE Prophylaxis - Heparin 5000 SC q8h Resident Physician Supervision Note: I was present with Dr. Moon during the history and exam. I discussed the case with the resident and agree with the findings and plan as documented in the note. Any exceptions or clarifications are listed here: Patient with h/o asthma, poor outpatient follow up, in ICU for hypoxic respiratory failure secondary to pneumonia. To continue Abx, was escalated Zosyn and azithromycin when he worsened. May d/c Vancomycin, no suspicion of MRSA Continue systemic steroids, decreased to 40 mg q 12 hourly. Doubt higher doses are beneficial. Also on Symbicort, bronchodilators. Patient making a slow recovery, but overall improving Follow up alpha-1 antitrypsin levels Recommend PFTs once improved clinically DVT prophylaxis: on heparin SC May transfer patient to monitored floor Critical care time spent with patient, consultants, reviewing chart and studies , greater than 25 minutes Documented By: Jack Prince Consults & Procedures Consultants: Critical care Pulmonology Procedures: Nil Data Medications: Current Inpatient Medications Medications (Trade) Dose Ordered Sig/Linette Route Start Time Stop Time Status Last Admin Dose Admin Heparin Sodium (Porcine) (Heparin Sq 5000 Unit/0.5ml) 5,000 unit Q8H SQ 08/30/17 22:00 09/29/17 21:59 09/04/17 05:13 5,000 UNIT Acetaminophen (Tylenol Tab) 650 mg Q4H PRN PO 08/30/17 20:00 09/29/17 19:59 09/03/17 19:42 650 MG Al Hydrox/Mg Hydrox/Simethicone (Maalox Max Susp) 15 ml Q4H PRN PO 08/30/17 20:00 09/29/17 19:59 Magnesium Hydroxide (Milk Of Magnesia Susp) 30 ml Q6H PRN PO 08/30/17 20:00 09/29/17 19:59 09/01/17 07:25 30 ML Polyethylene (Miralax Powder Packet) 17 gm DAILY PRN PO 08/30/17 20:00 09/29/17 19:59 09/02/17 07:11 17 GM Ondansetron HCl (Zofran Inj) 4 mg Q6H PRN IV 08/30/17 20:00 09/29/17 19:59 Albuterol/ Ipratropium (Duoneb) 3 ml Q6R INH 08/30/17 21:00 09/29/17 20:59 09/04/17 07:02 3 ML Baclofen (Lioresal Tab) 10 mg DAILY PRN PO 08/30/17 21:45 09/29/17 21:44 Budesonide/ Formoterol Fumarate (Symbicort 160/ 4.5 Inh) 2 puffs BID INH 08/31/17 08:00 09/30/17 07:59 09/04/17 07:42 2 PUFFS Diclofenac Sodium (Voltaren Tab) 75 mg DAILY PO 08/31/17 08:00 09/30/17 07:59 09/04/17 07:42 75 MG Levothyroxine Sodium (Synthroid Tab) 200 mcg DAILYBB PO 08/31/17 06:30 09/30/17 06:29 09/04/17 05:08 200 MCG Trazodone HCl (Desyrel Tab) 50 mg HS PO 08/30/17 22:00 09/29/17 21:59 09/03/17 21:09 50 MG Pantoprazole Sodium (Protonix Tab) 40 mg QAM PO 09/01/17 08:00 10/01/17 07:59 09/04/17 07:41 40 MG Albuterol Sulfate (Ventolin 0.083% 2.5MG/3ML Neb) 2.5 mg Q2R PRN INH 08/31/17 10:15 09/29/17 19:59 Ioversol (Optiray 320) 100 ml UD PRN IV 08/31/17 11:15 09/04/17 11:14 Nicotine (Nicoderm Cq 21MG Patch) 1 patch QAM TD 09/02/17 09:00 10/02/17 08:59 09/04/17 07:42 1 PATCH Miscellaneous (Remove Nicoderm Patch) 1 ea HS N/A 09/01/17 21:00 10/01/17 20:59 09/03/17 21:09 1 EA Codeine Phosphate/ Guaifenesin (Robitussin-AC Sugar Free Syrup) 10 ml Q6H PRN PO 09/01/17 10:00 10/01/17 09:59 Azithromycin 500 mg/Dextrose 255 ml @ 125 mls/hr DAILY IV 09/03/17 09:00 09/09/17 08:59 09/04/17 07:41 125 MLS/HR Piperacillin Sod/ Tazobactam Sod 3.375 gm/Dextrose 115 ml @ 28.75 mls/ hr Q8H IV 09/02/17 18:00 09/09/17 09:59 09/04/17 10:34 28.75 MLS/HR Piperacillin Sod/ Tazobactam Sod (Consult) 1 ea UD PRN N/A 09/02/17 10:30 10/02/17 10:29 Glucose (Glucose 40% Gel) 15-30 GRAMS 15 GRAMS... UD PRN PO 09/03/17 07:00 10/03/17 06:59 Glucose (Glucose Chew Tab) 4-8 Tablets 4 Tabl... UD PRN PO 09/03/17 07:00 10/03/17 06:59 Dextrose (Dextrose 50% 50ML Syringe) 25-50ML OF 50% DW IV FOR... UD PRN IV 09/03/17 07:00 10/03/17 06:59 Glucagon (Glucagon Inj) 1 mg UD PRN SQ 09/03/17 07:00 10/03/17 06:59 Miscellaneous Information (Consult Glycemic Management Pharmacy) 1 ea UD N/A 09/03/17 08:11 10/03/17 08:10 Guaifenesin (Organidin Nr Tab) 200 mg Q4 PO 09/03/17 08:15 10/03/17 08:14 09/04/17 07:42 200 MG Fluticasone Propionate (Flonase Nasal [place]) 2 sprays BID NA 09/03/17 21:00 10/03/17 20:59 09/04/17 07:42 2 SPRAYS Insulin Human Regular 250 units/ Sodium Chloride 252.5 ml @ 0 mls/hr Q24H IV 09/03/17 11:45 09/04/17 15:00 09/03/17 11:59 1.8 MLS/HR Insulin Aspart (novoLOG ASPART) SLIDING SCALE PCHS MD 09/03/17 12:00 09/04/17 15:00 Insulin Glargine (Lantus Solostar Pen) 17 units BID MD 09/04/17 09:00 10/04/17 08:59 09/04/17 07:41 17 UNITS Miscellaneous (Stop Order) 1 ea TODAY@1500 ONCE N/A 09/04/17 15:00 09/04/17 15:01 Insulin Aspart (novoLOG ASPART) SLIDING SCALE ACHS MD 09/04/17 16:00 10/04/17 15:59 Methylprednisolone Sodium Succinate 40 mg/Syringe 0.64 ml @ 1.5 mls/min Q12H IV 09/04/17 20:00 10/03/17 15:59 Vital Signs: Date Time Temp Pulse Resp B/P (MAP) Pulse Ox O2 Delivery O2 Flow Rate FiO2 09/04/17 10:31 77 22 91 Oxymask 4.0 09/04/17 08:41 74 24 118/77 (91) 93 Oxymask 4.0 09/04/17 08:00 Oxymask 8.0 09/04/17 08:00 Oxymask 09/04/17 07:06 71 20 96 Mask 8.0 09/04/17 06:00 62 25 95 Oxymask 8.0 09/04/17 04:00 59 21 100/54 (69) 95 Oxymask 8.0 09/04/17 04:00 Oxymask 8.0 09/04/17 02:00 75 24 90 Oxymask 8.0 09/04/17 01:45 84 20 94 Mask 8.0 09/04/17 00:01 36.7 65 31 130/72 (91) 95 Oxymask 8.0 09/03/17 23:59 Oxymask 8.0 09/03/17 22:00 73 33 129/77 (94) 95 Oxymask 8.0 09/03/17 20:00 36.7 91 36 94 Oxymask 8.0 09/03/17 20:00 Oxymask 8.0 09/03/17 19:36 90 20 94 Mask 8.0 09/03/17 18:10 80 24 94 Oxymask 8.0 09/03/17 16:02 75 24 95 Oxymask 8.0 09/03/17 16:00 Oxymask 8.0 09/03/17 14:22 77 24 94 Nasal Cannula 7.0 09/03/17 14:14 36.7 77 30 106/67 (80) 94 Oxymask 8.0 09/03/17 12:00 87 30 91 Oxymask 8.0 09/03/17 12:00 Oxymask 8.0 Laboratory Results: Last 24 Hours Test 09/03/17 11:33 09/03/17 11:36 09/03/17 13:13 09/03/17 14:09 Bedside Glucose 222 mg/dl 221 mg/dl 184 mg/dl Vancomycin Level Trough 12.9 mcg/ml Test 09/03/17 14:55 09/03/17 15:56 09/03/17 16:14 09/03/17 16:29 Bedside Glucose 151 mg/dl 111 mg/dl 105 mg/dl 109 mg/dl Test 09/03/17 16:46 09/03/17 17:01 09/03/17 18:04 09/03/17 19:10 Bedside Glucose 102 mg/dl 105 mg/dl 127 mg/dl 161 mg/dl Test 09/03/17 20:05 09/03/17 21:07 09/03/17 22:03 09/03/17 23:06 Bedside Glucose 173 mg/dl 182 mg/dl 151 mg/dl 165 mg/dl Test 09/04/17 00:11 09/04/17 01:10 09/04/17 03:07 09/04/17 05:12 Bedside Glucose 181 mg/dl 174 mg/dl 161 mg/dl 156 mg/dl Test 09/04/17 05:18 09/04/17 07:55 White Blood Count 19.92 K/uL Red Blood Count 4.09 M/uL Hemoglobin 12.3 g/dL Hematocrit 36.8 % Mean Corpuscular Volume 90.0 fL Mean Corpuscular Hemoglobin 30.1 pg Mean Corpuscular Hemoglobin Concent 33.4 g/dl Platelet Count 357 K/uL Mean Platelet Volume 9.0 fL Neutrophils (%) (Auto) 76.3 % Lymphocytes (%) (Auto) 8.0 % Monocytes (%) (Auto) 5.9 % Eosinophils (%) (Auto) 0.0 % Basophils (%) (Auto) 0.3 % Neutrophils # (Auto) 15.20 K/uL Lymphocytes # (Auto) 1.60 K/uL Monocytes # (Auto) 1.18 K/uL Eosinophils # (Auto) 0.00 K/uL Basophils # (Auto) 0.05 K/uL RDW Standard Deviation 42.9 fL RDW Coefficient of Variation 13.2 % Immature Granulocyte % (Auto) 9.5 % Immature Granulocyte # (Auto) 1.89 K/uL Toxic Vacuolation OCCASIONAL Sodium Level 140 mmol/L Potassium Level 4.5 mmol/L Chloride Level 106 mmol/L Carbon Dioxide Level 27 mmol/L Anion Gap 7.0 mmol/L Blood Urea Nitrogen 20 mg/dl Creatinine 0.92 mg/dl Est Creatinine Clear Calc Drug Dose 91.8 ml/min Estimated GFR () 121.9 Estimated GFR (Non- 105.1 BUN/Creatinine Ratio 21.3 Random Glucose 156 mg/dl Calcium Level 8.5 mg/dl Phosphorus Level 3.4 mg/dl Magnesium Level 2.8 mg/dl Total Bilirubin 0.2 mg/dl Aspartate Amino Transf (AST/SGOT) 50 U/L Alanine Aminotransferase (ALT/SGPT) 215 U/L Alkaline Phosphatase 83 U/L Total Protein 6.0 gm/dl Albumin 2.6 gm/dl Globulin 3.4 gm/dl Albumin/Globulin Ratio 0.8 Bedside Glucose 164 mg/dl Resident Tracking Resident Involvement: Resident Care Provided Care Provided: Adult Hospital Medicine
[2017-09-04] MEDS: INSULIN REGULAR 250 UNITS in SODIUM CHLORIDE 0.9% 250ML 250 ML IV SCH (11:23)
--- NOTE | 2017-09-04 11:28 | Pharmacy Progress Note ---
Glycemic Control Progress Note Date of Service Sep 04, 2017. Scope Glycemic Pharmacist consulted for glycemic control to write orders per [facility] inpatient glycemic control protocol. Objective Accuchecks BSG (last 24hrs): Test 09/03/17 11:33 09/03/17 13:13 09/03/17 14:09 09/03/17 14:55 Bedside Glucose 222 mg/dl (70-99) 221 mg/dl (70-99) 184 mg/dl (70-99) 151 mg/dl (70-99) Test 09/03/17 15:56 09/03/17 16:14 09/03/17 16:29 09/03/17 16:46 Bedside Glucose 111 mg/dl (70-99) 105 mg/dl (70-99) 109 mg/dl (70-99) 102 mg/dl (70-99) Test 09/03/17 17:01 09/03/17 18:04 09/03/17 19:10 09/03/17 20:05 Bedside Glucose 105 mg/dl (70-99) 127 mg/dl (70-99) 161 mg/dl (70-99) 173 mg/dl (70-99) Test 09/03/17 21:07 09/03/17 22:03 09/03/17 23:06 09/04/17 00:11 Bedside Glucose 182 mg/dl (70-99) 151 mg/dl (70-99) 165 mg/dl (70-99) 181 mg/dl (70-99) Test 09/04/17 01:10 09/04/17 03:07 09/04/17 05:12 09/04/17 05:18 Bedside Glucose 174 mg/dl (70-99) 161 mg/dl (70-99) 156 mg/dl (70-99) Random Glucose 156 mg/dl (70-99) Test 09/04/17 07:55 Bedside Glucose 164 mg/dl (70-99) HbA1c: Test 09/03/17 05:19 Hemoglobin A1c 5.9 % (4.5-5.6) H Recent Pertinent Medications Outpatient Anti-diabetic Regimen: * No prior h/o DM * A1c = 5.9% ("prediabetes" range) Risk Factors for Insulin Resistance: * Steroids: Solu-Medrol 40mg IV Q 8 hours, changed to 40mg IV Q 12 hours today * Infection: COPD exac / asthma exac / pneumonia: receiving Zosyn + Azithromycin IV * Diet: ordered T2DM diet * Mechanical Ventilation: No, however still requiring 8L OxyMask Assessment & Plan ASSESSMENT: 09/03/17: * 37 yo male with no prior h/o DM admitted to ICU for respiratory failure likely secondary to COPD/asthma exac, possible pneumonia * Receiving bronchodilators, antibiotics, and high dose IV steroids * Last 2 BSGs have been > 180 * A1 consistent w/ "prediabetes range" * Will initiate IV insulin infusion per moderate stress given ICU admission w/ continued IV steroid administration, but will also initiate some SQ insulin as well with hopes to transition the patient off the drip once glycemic control improved. 09/04/17 * BSGs well controlled with the initiation of insulin drip yesterday * Drip infusing at 0.6units/hr most of the night with BSGs within the goal range * He had also received Lantus 17 units in the AM + 10 units in the PM yesterday * Will begin to transition the patient off the insulin drip today as insulin infusion rates minimal w/ current Lantus doses on board and steroids being tapered again * Based upon insulin infusion rates, he appears to require an additional 14 units per day of basal insulin on top of the 27 units he already has on board with the current stressors. We must factor in the reduction in steroid dose today however. PLAN FOR INPATIENT GLYCEMIC CONTROL: * Increase Lantus to 17 units SQ BID * Discontinue the IV insulin infusion ~ 6 hours after the AM dose of Lantus * BSGs ACHS and at 0200 tonight * Novolog SQ after insulin infusion discontinued: * Goal range: 120 - 150 mg/dL * Correction factor: 20mg/dL/unit * Carb ratio: 1 unit per 7 grams CHO consumed * Reevaluate insulin doses with each step down in steroid dose * Please note that the plan above was derived based on current level of insulin resistance and hospital stress. These recommendations are appropriate for inpatient admission only. Plan of care upon discharge will need to be reassessed to avoid potential outpatient hypo/hyperglycemia. Thank you.
[2017-09-04] MEDS ORDERED: VANCOMYCIN TROUGH ONE (11:30)
--- NOTE | 2017-09-04 14:04 | Pulmonology Progress Note ---
Pulmonary Progress Note Date of Service Sep 04, 2017. Attending Dr. Max Subjective 37 male admitted for acute on chronic asthma exacerbation requiring ICU level of care. The patient notes he is had dramatic improvement in his overall respiratory status currently able to ambulate throughout his room with no notable dyspnea on exertion. He does note a long history of dyspnea on exertion after only walking for half a mile. He denies any chest pain, pleurisy, chronic cough. Objective 37-year-old male admitted 08/30/2017 treated for acute on chronic asthma exacerbation currently doing well on 4 L nasal cannula PMHx includes: Asthma, hypothyroid, deafness - left, spina bifida, h/o childhood respiratory failure, esophageal reflux disease, HLD, h/o ETOH abuse, and tobacco use (2ppd x 10-year). CT Angiogram of the Chest 08/31/17: IMPRESSION: 1. Significantly motion compromised examination. 2. There is no evidence of central pulmonary embolus in the main, lobar, or proximal segmental pulmonary arteries. The peripheral vessels are not well assessed. 3. There is diffuse tree-in-bud nodularity with associated groundglass change seen throughout both lungs, likely representing an infectious/inflammatory pneumonitis. This may represent atypical infection. Follow-up chest CT in 2-3 months time is recommended to document resolution. 4. More focal airspace consolidation in the right middle lobe and lingula tibia on an infectious basis or represent atelectasis. 5. No pleural effusion is identified. Echocardiogram 09/02/17: pEF: 55-60%, No diastolic dysfunction. No significant valvular dysfunction. Today: - 90-96%: 4-8LPM - WBC: 19K - A1AT, legionella, mycoplasma: pending -Microbiology: Normal today Physical Exam: Constitutional: WDWN male sitting in chair at bedside. NAD Head: + O2 mask Eyes: EOMi, PERRLA, no injection Mouth: Large tongue with high palate. NO visible erythema or exudate Neck: Full neck with mild inspiratory/expiratory stridor Respiratory: Mild bilateral expiratory wheezing CV: regular rate and rhythm. No MRG. warm and perfused peripherally with +2 radial and DP bilaterally. No clubbing GI: Soft, active bowel sounds MSK/Extremities: Moving and developed symmetrically Neurologic: A&O. Good data recall. Appropriate affect. Assessment & Plan 37-yo male with h/o asthma, spinabifida and heavy tobacco admitted with hypoxic respiratory failure and multifocal pneumonia patient is notably improved the last 24 hours currently doing well on 4 L #1 respiratory: This time the patient is notably improved. I will leave it up to the primary CT and but we can most likely start slowly tapering down on his steroids and antibiotic coverage at this time. #2 upper airway: Patient does have a history of requiring 3 resuscitations after delivery/. 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 It is possible it is been mistaken for a floppy upper airway such as trachea. I cannot find anything definitive on the CT but is not a CT of the neck. We could be dealing with upper airway [place] or even tracheobronchial/subglottic stenosis. Note suggest we do any current intervention as any bronchoscopic/endoscopic evaluation could exacerbate his current asthma. Further workup I do believe is necessary as an outpatient. Data Medications: Current Inpatient Medications Medications (Trade) Dose Ordered Sig/Linette Route Start Time Stop Time Status Last Admin Dose Admin Heparin Sodium (Porcine) (Heparin Sq 5000 Unit/0.5ml) 5,000 unit Q8H SQ 08/30/17 22:00 09/29/17 21:59 09/04/17 12:29 5,000 UNIT Acetaminophen (Tylenol Tab) 650 mg Q4H PRN PO 08/30/17 20:00 09/29/17 19:59 09/03/17 19:42 650 MG Al Hydrox/Mg Hydrox/Simethicone (Maalox Max Susp) 15 ml Q4H PRN PO 08/30/17 20:00 09/29/17 19:59 Magnesium Hydroxide (Milk Of Magnesia Susp) 30 ml Q6H PRN PO 08/30/17 20:00 09/29/17 19:59 09/01/17 07:25 30 ML Polyethylene (Miralax Powder Packet) 17 gm DAILY PRN PO 08/30/17 20:00 09/29/17 19:59 09/02/17 07:11 17 GM Ondansetron HCl (Zofran Inj) 4 mg Q6H PRN IV 08/30/17 20:00 09/29/17 19:59 Albuterol/ Ipratropium (Duoneb) 3 ml Q6R INH 08/30/17 21:00 09/29/17 20:59 09/04/17 07:02 3 ML Baclofen (Lioresal Tab) 10 mg DAILY PRN PO 08/30/17 21:45 09/29/17 21:44 Budesonide/ Formoterol Fumarate (Symbicort 160/ 4.5 Inh) 2 puffs BID INH 08/31/17 08:00 09/30/17 07:59 09/04/17 07:42 2 PUFFS Diclofenac Sodium (Voltaren Tab) 75 mg DAILY PO 08/31/17 08:00 09/30/17 07:59 09/04/17 07:42 75 MG Levothyroxine Sodium (Synthroid Tab) 200 mcg DAILYBB PO 08/31/17 06:30 09/30/17 06:29 09/04/17 05:08 200 MCG Trazodone HCl (Desyrel Tab) 50 mg HS PO 08/30/17 22:00 09/29/17 21:59 09/03/17 21:09 50 MG Pantoprazole Sodium (Protonix Tab) 40 mg QAM PO 09/01/17 08:00 10/01/17 07:59 09/04/17 07:41 40 MG Albuterol Sulfate (Ventolin 0.083% 2.5MG/3ML Neb) 2.5 mg Q2R PRN INH 08/31/17 10:15 09/29/17 19:59 Nicotine (Nicoderm Cq 21MG Patch) 1 patch QAM TD 09/02/17 09:00 10/02/17 08:59 09/04/17 07:42 1 PATCH Miscellaneous (Remove Nicoderm Patch) 1 ea HS N/A 09/01/17 21:00 10/01/17 20:59 09/03/17 21:09 1 EA Codeine Phosphate/ Guaifenesin (Robitussin-AC Sugar Free Syrup) 10 ml Q6H PRN PO 09/01/17 10:00 10/01/17 09:59 Azithromycin 500 mg/Dextrose 255 ml @ 125 mls/hr DAILY IV 09/03/17 09:00 09/09/17 08:59 09/04/17 07:41 125 MLS/HR Piperacillin Sod/ Tazobactam Sod 3.375 gm/Dextrose 115 ml @ 28.75 mls/ hr Q8H IV 09/02/17 18:00 09/09/17 09:59 09/04/17 10:34 28.75 MLS/HR Piperacillin Sod/ Tazobactam Sod (Consult) 1 ea UD PRN N/A 09/02/17 10:30 10/02/17 10:29 Glucose (Glucose 40% Gel) 15-30 GRAMS 15 GRAMS... UD PRN PO 09/03/17 07:00 10/03/17 06:59 Glucose (Glucose Chew Tab) 4-8 Tablets 4 Tabl... UD PRN PO 09/03/17 07:00 10/03/17 06:59 Dextrose (Dextrose 50% 50ML Syringe) 25-50ML OF 50% DW IV FOR... UD PRN IV 09/03/17 07:00 10/03/17 06:59 Glucagon (Glucagon Inj) 1 mg UD PRN SQ 09/03/17 07:00 10/03/17 06:59 Miscellaneous Information (Consult Glycemic Management Pharmacy) 1 ea UD N/A 09/03/17 08:11 10/03/17 08:10 Guaifenesin (Organidin Nr Tab) 200 mg Q4 PO 09/03/17 08:15 10/03/17 08:14 09/04/17 12:28 200 MG Fluticasone Propionate (Flonase Nasal [place]) 2 sprays BID NA 09/03/17 21:00 10/03/17 20:59 09/04/17 07:42 2 SPRAYS Insulin Human Regular 250 units/ Sodium Chloride 252.5 ml @ 0 mls/hr Q24H IV 09/03/17 11:45 09/04/17 15:00 09/03/17 11:59 1.8 MLS/HR Insulin Aspart (novoLOG ASPART) SLIDING SCALE PCHS SC 09/03/17 12:00 09/04/17 15:00 Insulin Glargine (Lantus Solostar Pen) 17 units BID SC 09/04/17 09:00 10/04/17 08:59 09/04/17 07:41 17 UNITS Miscellaneous (Stop Order) 1 ea TODAY@1500 ONCE N/A 09/04/17 15:00 09/04/17 15:01 Insulin Aspart (novoLOG ASPART) SLIDING SCALE ACHS SC 09/04/17 16:00 10/04/17 15:59 Methylprednisolone Sodium Succinate 40 mg/Syringe 0.64 ml @ 1.5 mls/min Q12H IV 09/04/17 20:00 10/03/17 15:59 Insulin Aspart (novoLOG ASPART) SLIDING SCALE TODAY@0200 ONCE SC 09/05/17 02:00 09/05/17 02:01 Vital Signs: Date Time Temp Pulse Resp B/P (MAP) Pulse Ox O2 Delivery O2 Flow Rate FiO2 09/04/17 12:00 Oxymask 4.0 09/04/17 12:00 65 24 94 Oxymask 4.0 09/04/17 10:31 77 22 91 Oxymask 4.0 09/04/17 08:41 74 24 118/77 (91) 93 Oxymask 4.0 09/04/17 08:00 Oxymask 8.0 09/04/17 08:00 Oxymask 09/04/17 07:06 71 20 96 Mask 8.0 09/04/17 06:00 62 25 95 Oxymask 8.0 09/04/17 04:00 59 21 100/54 (69) 95 Oxymask 8.0 09/04/17 04:00 Oxymask 8.0 09/04/17 02:00 75 24 90 Oxymask 8.0 09/04/17 01:45 84 20 94 Mask 8.0 09/04/17 00:01 36.7 65 31 130/72 (91) 95 Oxymask 8.0 09/03/17 23:59 Oxymask 8.0 09/03/17 22:00 73 33 129/77 (94) 95 Oxymask 8.0 09/03/17 20:00 36.7 91 36 94 Oxymask 8.0 09/03/17 20:00 Oxymask 8.0 09/03/17 19:36 90 20 94 Mask 8.0 09/03/17 18:10 80 24 94 Oxymask 8.0 09/03/17 16:02 75 24 95 Oxymask 8.0 09/03/17 16:00 Oxymask 8.0 09/03/17 14:22 77 24 94 Nasal Cannula 7.0 09/03/17 14:14 36.7 77 30 106/67 (80) 94 Oxymask 8.0 Laboratory Results: Last 24 Hours Test 09/03/17 14:09 09/03/17 14:55 09/03/17 15:56 09/03/17 16:14 Bedside Glucose 184 mg/dl 151 mg/dl 111 mg/dl 105 mg/dl Test 09/03/17 16:29 09/03/17 16:46 09/03/17 17:01 09/03/17 18:04 Bedside Glucose 109 mg/dl 102 mg/dl 105 mg/dl 127 mg/dl Test 09/03/17 19:10 09/03/17 20:05 09/03/17 21:07 09/03/17 22:03 Bedside Glucose 161 mg/dl 173 mg/dl 182 mg/dl 151 mg/dl Test 09/03/17 23:06 09/04/17 00:11 09/04/17 01:10 09/04/17 03:07 Bedside Glucose 165 mg/dl 181 mg/dl 174 mg/dl 161 mg/dl Test 09/04/17 05:12 09/04/17 05:18 09/04/17 07:55 09/04/17 12:25 Bedside Glucose 156 mg/dl 164 mg/dl 143 mg/dl White Blood Count 19.92 K/uL Red Blood Count 4.09 M/uL Hemoglobin 12.3 g/dL Hematocrit 36.8 % Mean Corpuscular Volume 90.0 fL Mean Corpuscular Hemoglobin 30.1 pg Mean Corpuscular Hemoglobin Concent 33.4 g/dl Platelet Count 357 K/uL Mean Platelet Volume 9.0 fL Neutrophils (%) (Auto) 76.3 % Lymphocytes (%) (Auto) 8.0 % Monocytes (%) (Auto) 5.9 % Eosinophils (%) (Auto) 0.0 % Basophils (%) (Auto) 0.3 % Neutrophils # (Auto) 15.20 K/uL Lymphocytes # (Auto) 1.60 K/uL Monocytes # (Auto) 1.18 K/uL Eosinophils # (Auto) 0.00 K/uL Basophils # (Auto) 0.05 K/uL RDW Standard Deviation 42.9 fL RDW Coefficient of Variation 13.2 % Immature Granulocyte % (Auto) 9.5 % Immature Granulocyte # (Auto) 1.89 K/uL Toxic Vacuolation OCCASIONAL Sodium Level 140 mmol/L Potassium Level 4.5 mmol/L Chloride Level 106 mmol/L Carbon Dioxide Level 27 mmol/L Anion Gap 7.0 mmol/L Blood Urea Nitrogen 20 mg/dl Creatinine 0.92 mg/dl Est Creatinine Clear Calc Drug Dose 91.8 ml/min Estimated GFR () 121.9 Estimated GFR (Non- 105.1 BUN/Creatinine Ratio 21.3 Random Glucose 156 mg/dl Calcium Level 8.5 mg/dl Phosphorus Level 3.4 mg/dl Magnesium Level 2.8 mg/dl Total Bilirubin 0.2 mg/dl Aspartate Amino Transf (AST/SGOT) 50 U/L Alanine Aminotransferase (ALT/SGPT) 215 U/L Alkaline Phosphatase 83 U/L Total Protein 6.0 gm/dl Albumin 2.6 gm/dl Globulin 3.4 gm/dl Albumin/Globulin Ratio 0.8
--- NOTE | 2017-09-04 18:21 | Progress Note ---
Subjective Date of Service: Sep 04, 2017. Subjective Pt evaluation today including: conversation w/ patient, physical exam, chart review, lab review, review of inpatient medication list feeling better breathign bbetter not missing tobacco at all right now walked around the room no problems no f/c/s Problem List Medical Problems: (1) Abscess of groin, right Status: Acute (2) Back strain Status: Acute (3) Bilateral pneumonia Status: Acute (4) Dyspnea Status: Acute (5) Rash Status: Acute Review of Systems all other ROS otherwise negative except for as above Objective Vital Signs Date Time Temp Pulse Resp B/P (MAP) Pulse Ox O2 Delivery O2 Flow Rate FiO2 09/04/17 17:58 36.5 83 32 92 4.0 09/04/17 15:00 92 Oxymask 4.0 09/04/17 15:00 36.5 83 32 128/70 (89) 92 Nasal Cannula 4.0 09/04/17 14:05 76 20 95 Nasal Cannula 4.0 09/04/17 14:03 107 24 94 Oxymask 4.0 09/04/17 12:00 Oxymask 4.0 09/04/17 12:00 65 24 94 Oxymask 4.0 09/04/17 10:31 77 22 91 Oxymask 4.0 09/04/17 08:41 74 24 118/77 (91) 93 Oxymask 4.0 09/04/17 08:00 Oxymask 8.0 09/04/17 08:00 Oxymask 09/04/17 07:06 71 20 96 Mask 8.0 09/04/17 06:00 62 25 95 Oxymask 8.0 09/04/17 04:00 59 21 100/54 (69) 95 Oxymask 8.0 09/04/17 04:00 Oxymask 8.0 09/04/17 02:00 75 24 90 Oxymask 8.0 09/04/17 01:45 84 20 94 Mask 8.0 09/04/17 00:01 36.7 65 31 130/72 (91) 95 Oxymask 8.0 09/03/17 23:59 Oxymask 8.0 09/03/17 22:00 73 33 129/77 (94) 95 Oxymask 8.0 09/03/17 20:00 36.7 91 36 94 Oxymask 8.0 09/03/17 20:00 Oxymask 8.0 09/03/17 19:36 90 20 94 Mask 8.0 Physical Exam General Appearance: no apparent distress Eyes: EOMI ENT: hearing grossly normal Neck: trachea midline Respiratory/Chest: no respiratory distress, no accessory muscle use, + wheezing (wheeze and rhonchi on expiration but less than yesterday and better overall air entry) Extremities: normal range of motion Neurologic/Psychiatric: 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1 pg Mean Corpuscular Hemoglobin Concent 33.4 g/dl Platelet Count 357 K/uL Mean Platelet Volume 9.0 fL Neutrophils (%) (Auto) 76.3 % Lymphocytes (%) (Auto) 8.0 % Monocytes (%) (Auto) 5.9 % Eosinophils (%) (Auto) 0.0 % Basophils (%) (Auto) 0.3 % Neutrophils # (Auto) 15.20 K/uL Lymphocytes # (Auto) 1.60 K/uL Monocytes # (Auto) 1.18 K/uL Eosinophils # (Auto) 0.00 K/uL Basophils # (Auto) 0.05 K/uL RDW Standard Deviation 42.9 fL RDW Coefficient of Variation 13.2 % Immature Granulocyte % (Auto) 9.5 % Immature Granulocyte # (Auto) 1.89 K/uL Toxic Vacuolation OCCASIONAL Sodium Level 140 mmol/L Potassium Level 4.5 mmol/L Chloride Level 106 mmol/L Carbon Dioxide Level 27 mmol/L Anion Gap 7.0 mmol/L Blood Urea Nitrogen 20 mg/dl Creatinine 0.92 mg/dl Est Creatinine Clear Calc Drug Dose 91.8 ml/min Estimated GFR () 121.9 Estimated GFR (Non- 105.1 BUN/Creatinine Ratio 21.3 Random Glucose 156 mg/dl Calcium Level 8.5 mg/dl Phosphorus Level 3.4 mg/dl Magnesium Level 2.8 mg/dl Total Bilirubin 0.2 mg/dl Aspartate Amino Transf (AST/SGOT) 50 U/L Alanine Aminotransferase (ALT/SGPT) 215 U/L Alkaline Phosphatase 83 U/L Total Protein 6.0 gm/dl Albumin 2.6 gm/dl Globulin 3.4 gm/dl Albumin/Globulin Ratio 0.8 Test 09/04/17 15:38 Bedside Glucose 111 mg/dl Assessment and Plan hypoxia and respiratory distress -due to infectious process - atypicals vs viral most likely -continue zithromax, vanco stopped today, possibly can stop zosyn tomorrow ?asthma vs restrictive lung disease vs upper airway disease -no old PFTs -for now managing as asthma exacerbated by atypical pneumonia -as above -improving -PFTs as outpt, pulm eval ?possibly bronch as outpt spina bifida -doesn't show gross deformity that would hint at restrictive disease -ongoing home meds -again outpt PFTs as above tobacco abuse -previously counselled to quit - so far he seems to be motivated to do so DVT proph -heparin SQ hypothyroidism -continue synthroid hyperglycemia -a1c 5.9 - mild impaired glucose tolerance -steroid effect acutely - insulins managing to goal for current status dispo - stable for telemetry Continued [facility] stay due to: multiple IV medications needed Discharge planning: home
[2017-09-04] MEDS: TRAZODONE HCL 50 MG TAB PO SCH (20:34)
[2017-09-05] VITALS (18 sets, daily range): BP systolic 89–121; BP diastolic 52–77; PULSE 56–95; TEMP 36.3–36.9; O2SAT 92–99
[2017-09-05] MEDS ORDERED: INSULIN ASPART 100 UNITS/ML 3 ML PEN SC ONE (02:00)
[2017-09-05] MEDS: ALBUT/IPRATROP 3MG/0.5MG NEB 3 ML VIAL INH SCH ×3 (02:02→18:48)
[2017-09-05] MEDS: PIPERACILL/TAZOBAC IV 3.375 GM in DEXTROSE 5% 100ML 100 ML IV SCH ×2 (02:38→10:00)
[2017-09-05] MEDS: GUAIFENESIN 200 MG TAB PO SCH ×6 (05:50→23:46)
[2017-09-05] MEDS: LEVOTHYROXINE 200 MCG TAB PO SCH (05:50)
[2017-09-05] MEDS: HEPARIN SOD 5000 UNIT/0.5 ML CARP SQ SCH ×3 (05:53→21:42)
[2017-09-05 06:24] LABS: HEMATOCRIT 40.3 % (42-52); MEAN CELL VOLUME 89.2 fL (80-100); MEAN CORPUSCULAR HEMOGLOBIN 30.5 pg (25-34); MEAN CORPUSCULAR HGB CONC 34.2 g/dl (32-36); MEAN PLATELET VOLUME 9.9 fL (7.4-10.4); PLATELET COUNT 267 K/uL (130-400); RED BLOOD COUNT 4.52 M/uL (4.7-6.1)
[2017-09-05 06:56] LABS: CREATININE 0.96 mg/dl (0.60-1.40)
[2017-09-05] MEDS: METHYLPREDNISOLONE IV 40 MG in SYRINGE 0 ML IV SCH ×2 (08:01→20:34)
[2017-09-05] MEDS: BUDESONIDE/FORMOTEROL FUMARATE 160/4.5 60 PUFFS/INHALER INH SCH ×2 (08:02→20:35)
[2017-09-05] MEDS: AZITHROMYCIN IV 500 MG in DEXTROSE 5% 250ML 250 ML IV SCH (08:02)
[2017-09-05] MEDS: FLUTICASONE PROPIONATE NA SPR 16 GM BTL SCH ×2 (08:02→20:35)
[2017-09-05] MEDS: BACLOFEN 10 MG TAB PO PRN (08:06)
[2017-09-05] MEDS: PANTOprazole SOD 40 MG TAB PO SCH (08:07)
[2017-09-05] MEDS: DICLOFENAC SOD EC 75 MG TABCR PO SCH (08:07)
[2017-09-05] MEDS: NICOTINE 21 MG/24 HR TDSY TD SCH (08:08)
[2017-09-05] MEDS: INSULIN ASPART 100 UNITS/ML 3 ML PEN SC SCH ×4 (08:15→21:41)
[2017-09-05] MEDS: INSULIN GLARGINE SOLOSTAR 100 UNITS/ML 3 ML PEN SC SCH (08:17)
--- NOTE | 2017-09-05 10:39 | Medical Student: [facility] ---
Med Student Progress Note Date of Service Sep 05, 2017. Subjective Pt evaluation today including: conversation w/ patient Russ is doing well today. He was sitting up out of his chair and was speaking with me for several minutes without getting short of breath. He told me he has taken his O2 mask off to walk around the room, and he can do this for about 10-15 minutes before he feels like he needs to put it back on. He is currently on 3 L with a sat of 92% as of 0800. Still has slight audible wheezing and coughing but this is much less than yesterday. He is still using the nebulizer and says that is helping. Denies fever, chills, chest pain, nausea , vomiting, claudication, palpitations. Is eating and drinking well and has no problems moving bowels or voiding. He is now in the medical ICU. He did express frustrations about not being able to get out of his room and walk around the hospital and says he is getting bored, though he does express understanding that we are doing our best to have him totally fit to take care of his very active 6 year old son before we discharge him. Review of Systems Constitutional: No fever, No chills Respiratory: + cough, + wheezing, + shortness of breath (Only without mask), + dyspnea on exertion, No sputum Cardiac: No chest pain, No orthopnea, No PND Abdomen: No pain, No nausea Musculoskeletal: No joint pain, No muscle pain Neurologic: No weakness, No numbness/tingling Skin: No rash All Other Systems: Reviewed and Negative Objective Vital Signs Date Time Temp Pulse Resp B/P (MAP) Pulse Ox O2 Delivery O2 Flow Rate FiO2 09/05/17 08:00 Oxymask 3.0 09/05/17 07:20 36.8 68 20 106/67 (80) 92 Oxymask 3.0 09/05/17 06:53 70 20 97 Mask 4.0 09/05/17 04:19 36.6 76 19 117/63 (81) 98 Oxymask 4.0 09/05/17 04:00 Oxymask 4.0 09/05/17 02:02 57 20 97 Mask 4.0 09/05/17 00:32 36.9 56 21 89/52 (64) 95 Oxymask 4.0 09/04/17 23:59 Oxymask 4.0 09/04/17 20:00 97 Nasal Cannula 4.0 09/04/17 18:55 72 20 97 Mask 4.0 09/04/17 18:47 36.9 65 20 106/80 (89) 94 Oxymask 4.0 09/04/17 17:58 36.5 83 32 92 4.0 09/04/17 15:00 92 Oxymask 4.0 09/04/17 15:00 36.5 83 32 128/70 (89) 92 Nasal Cannula 4.0 09/04/17 14:05 76 20 95 Nasal Cannula 4.0 09/04/17 14:03 107 24 94 Oxymask 4.0 09/04/17 12:00 Oxymask 4.0 09/04/17 12:00 65 24 94 Oxymask 4.0 Physical Exam General Appearance: WD/WN, no apparent distress Neck: supple, no adenopathy Respiratory/Chest: + respiratory distress, + decreased breath sounds, + wheezing Cardiovascular: regular rate, rhythm, no edema, no gallop Abdomen: normal bowel sounds, non tender Extremities: no pedal edema, no calf tenderness Skin: normal color, warm/dry Laboratory Results Last 24 Hours Test 09/04/17 12:25 09/04/17 15:38 09/04/17 20:38 09/05/17 02:35 Bedside Glucose 143 mg/dl 111 mg/dl 111 mg/dl 144 mg/dl Test 09/05/17 05:52 White Blood Count 16.20 K/uL Red Blood Count 4.52 M/uL Hemoglobin 13.8 g/dL Hematocrit 40.3 % Mean Corpuscular Volume 89.2 fL Mean Corpuscular Hemoglobin 30.5 pg Mean Corpuscular Hemoglobin Concent 34.2 g/dl RDW Standard Deviation 43.3 fL RDW Coefficient of Variation 13.3 % Platelet Count 267 K/uL Mean Platelet Volume 9.9 fL Creatinine 0.96 mg/dl Est Creatinine Clear Calc Drug Dose 89.8 ml/min Estimated GFR () 115.7 Estimated GFR (Non- 99.9 Assessment and Plan Assessment and Plan: Assessment/Plan: This is a 37-year-old gentleman with a history of pneumonia/asthma exacerbation and spina bifida who presented to the ED 08/30 with severe shortness of breath and productive cough. DDx includes pneumonia, asthma exacerbation, COPD, PE, bronchitis, CHF. Primary: pneumonia/asthma exacerbation -Continue IV azithromycin; consider removing Zosyn as this appears to be an atypical pneumonia -Urine Legionella is negative; Mycobacterium results pending -Continue O2 protocol - was 92% sat on 3L this morning -Continue IV prednisolone - consider taper now that he is feeling much better -Continue Duo-Neb treatments -Continue Symbicort -Obtain PFTs when able -Blood cultures are negative -Moved him to MICU last night Secondary: tobacco use -Offer nicotine patch -Inpatient smoking cessation counseling followed by outpatient counseling -Establish new PCP per patient Hyperglycemia: -Likely due to steroids; A1c of 5.9 -Will treat with insulin acutely Hypothyroid: -Continue Synthroid Insomnia: -Continue trazodone Continued [facility] stay due to: multiple IV medications needed Discharge planning: home
--- NOTE | 2017-09-05 14:04 | Pulmonology Progress Note ---
Pulmonary Progress Note Date of Service Sep 05, 2017. Attending Dr. Max Subjective Patient continues to have some SOB especially with exertion. He continues to have wheezing today as well, but did just have a nebulizer treatment. Peak flow in the room was 275 ml. He otherwise denies chest pain, leg pain, N/V/D, or loss of appetite. Inpatient meds reviewed: Continues on SoluMedrol, Azithromycin, Zosyn, Guaifenesin, Symbicort, and Duoneb Labs reviewed: ABG 09/03 pH 7.46 pCO2 40 pO2 68 HCO3 29 Base excess 5.0 O2 saturation 95% WBC 16.[address] Chest viewed: IMPRESSION: 1. Significantly motion compromised examination. 2. There is no evidence of central pulmonary embolus in the main, lobar, or proximal segmental pulmonary arteries. The peripheral vessels are not well assessed. 3. There is diffuse tree-in-bud nodularity with associated groundglass change seen throughout both lungs, likely representing an infectious/inflammatory pneumonitis. This may represent atypical infection. Follow-up chest CT in 2-3 months time is recommended to document resolution. 4. More focal airspace consolidation in the right middle lobe and lingula tibia on an infectious basis or represent atelectasis. 5. No pleural effusion is identified. VS reviewed: Afebrile HR 68 RR 20 BP 116/77 SaO2 92-95% on 3 L via nasal cannula General: Patient is awake, alert, cooperative, and in no acute distress. Head: Normocephalic, Atraumatic. ENT: PERRLA, No discharge, EOMI, Sclera normal Neck: Normal ROM. Trachea midline. No stridor Respiratory: No adventitious sounds heard on exam. Normal breath sounds. No respiratory distress. No accessory muscle use. Cardiovascular: Regular rate and rhythm. No murmur appreciate. Normal S1/S2. Abdomen: Nontender to palpation. Normal bowel sounds hear throughout. No guarding. Abdomen is soft and nontender Back: Normal inspection. Extremities: Trace edema RLE. Neuro: Alert, Oriented x 3. CN II-XII grossly intact. Sensation and motor function grossly intact. Psych: Mood and affect are normal. Pulses: Posterior Tibial 0, 1+, 2+, 3+, 4+ Assessment & Plan Asthma Spina Bifida Heavy tobacco user Hypoxic respiratory failure Multifocal pneumonia Patient's lungs overall sound improved, and his peak flow today is much improved , but he has continued SOB especially with exertion and continued need for O2 supplementation. Will repeat CT of the chest today to see if we can get a better picture of the patient's lungs. Previous image had a lot of motion artifact. Will also recheck ABG this afternoon. Patient does have improvement in his wheezing, therefore will continue to taper steroids. Will D/C IV SoluMedrol tomorrow morning and start PO Prednisone 40 mg daily. Will need a slow tapering course of prednisone. Patient may ultimately need bronchoscopy for further evaluation, but will await further workup today. Continue empiric abx therapy. Echo reviewed again today and noted to be normal and show no real abnormalities in motion or function. This patient was discussed in detail with Dr. Max. Patient plan was reviewed agreed upon. The peak flow meter was marked to be 275. At this time is still notably low for patient this age. Will hold off on perform bedside spirometry at this time but otherwise will continue with current plan. Data Medications: Current Inpatient Medications Medications (Trade) Dose Ordered Sig/Linette Route Start Time Stop Time Status Last Admin Dose Admin Heparin Sodium (Porcine) (Heparin Sq 5000 Unit/0.5ml) 5,000 unit Q8H SQ 08/30/17 22:00 09/29/17 21:59 09/05/17 05:53 5,000 UNIT Acetaminophen (Tylenol Tab) 650 mg Q4H PRN PO 08/30/17 20:00 09/29/17 19:59 09/03/17 19:42 650 MG Al Hydrox/Mg Hydrox/Simethicone (Maalox Max Susp) 15 ml Q4H PRN PO 08/30/17 20:00 09/29/17 19:59 Magnesium Hydroxide (Milk Of Magnesia Susp) 30 ml Q6H PRN PO 08/30/17 20:00 09/29/17 19:59 09/01/17 07:25 30 ML Polyethylene (Miralax Powder Packet) 17 gm DAILY PRN PO 08/30/17 20:00 09/29/17 19:59 09/02/17 07:11 17 GM Ondansetron HCl (Zofran Inj) 4 mg Q6H PRN IV 08/30/17 20:00 09/29/17 19:59 Albuterol/ Ipratropium (Duoneb) 3 ml Q6R INH 08/30/17 21:00 09/29/17 20:59 09/05/17 06:53 3 ML Baclofen (Lioresal Tab) 10 mg DAILY PRN PO 08/30/17 21:45 09/29/17 21:44 09/05/17 08:06 10 MG Budesonide/ Formoterol Fumarate (Symbicort 160/ 4.5 Inh) 2 puffs BID INH 08/31/17 08:00 09/30/17 07:59 09/05/17 08:02 2 PUFFS Diclofenac Sodium (Voltaren Tab) 75 mg DAILY PO 08/31/17 08:00 09/30/17 07:59 09/05/17 08:07 75 MG Levothyroxine Sodium (Synthroid Tab) 200 mcg DAILYBB PO 08/31/17 06:30 09/30/17 06:29 09/05/17 05:50 200 MCG Trazodone HCl (Desyrel Tab) 50 mg HS PO 08/30/17 22:00 09/29/17 21:59 09/04/17 20:34 50 MG Pantoprazole Sodium (Protonix Tab) 40 mg QAM PO 09/01/17 08:00 10/01/17 07:59 09/05/17 08:07 40 MG Albuterol Sulfate (Ventolin 0.083% 2.5MG/3ML Neb) 2.5 mg Q2R PRN INH 08/31/17 10:15 09/29/17 19:59 Nicotine (Nicoderm Cq 21MG Patch) 1 patch QAM TD 09/02/17 09:00 10/02/17 08:59 09/05/17 08:08 1 PATCH Miscellaneous (Remove Nicoderm Patch) 1 ea HS N/A 09/01/17 21:00 10/01/17 20:59 09/04/17 20:41 1 EA Codeine Phosphate/ Guaifenesin (Robitussin-AC Sugar Free Syrup) 10 ml Q6H PRN PO 09/01/17 10:00 10/01/17 09:59 Azithromycin 500 mg/Dextrose 255 ml @ 125 mls/hr DAILY IV 09/03/17 09:00 09/09/17 08:59 09/05/17 08:02 125 MLS/HR Piperacillin Sod/ Tazobactam Sod 3.375 gm/Dextrose 115 ml @ 28.75 mls/ hr Q8H IV 09/02/17 18:00 09/09/17 09:59 09/05/17 10:00 28.75 MLS/HR Piperacillin Sod/ Tazobactam Sod (Consult) 1 ea UD PRN N/A 09/02/17 10:30 10/02/17 10:29 Glucose (Glucose 40% Gel) 15-30 GRAMS 15 GRAMS... UD PRN PO 09/03/17 07:00 10/03/17 06:59 Glucose (Glucose Chew Tab) 4-8 Tablets 4 Tabl... UD PRN PO 09/03/17 07:00 10/03/17 06:59 Dextrose (Dextrose 50% 50ML Syringe) 25-50ML OF 50% DW IV FOR... UD PRN IV 09/03/17 07:00 10/03/17 06:59 Glucagon (Glucagon Inj) 1 mg UD PRN SQ 09/03/17 07:00 10/03/17 06:59 Miscellaneous Information (Consult Glycemic Management Pharmacy) 1 ea UD N/A 09/03/17 08:11 10/03/17 08:10 Guaifenesin (Organidin Nr Tab) 200 mg Q4 PO 09/03/17 08:15 10/03/17 08:14 09/05/17 12:28 200 MG Fluticasone Propionate (Flonase Nasal [place]) 2 sprays BID NA 09/03/17 21:00 10/03/17 20:59 09/05/17 08:02 2 SPRAYS Insulin Glargine (Lantus Solostar Pen) 17 units BID SC 09/04/17 09:00 10/04/17 08:59 09/05/17 08:17 17 UNITS Insulin Aspart (novoLOG ASPART) SLIDING SCALE ACHS SC 09/04/17 16:00 10/04/17 15:59 09/05/17 08:15 4 UNITS Methylprednisolone Sodium Succinate 40 mg/Syringe 0.64 ml @ 1.5 mls/min Q12H IV 09/04/17 20:00 10/03/17 15:59 09/05/17 08:01 1.5 MLS/MIN Vital Signs: Date Time Temp Pulse Resp B/P (MAP) Pulse Ox O2 Delivery O2 Flow Rate FiO2 09/05/17 12:00 Oxymask 3.0 09/05/17 11:32 36.5 68 20 116/77 (90) 95 Nasal Cannula 3.0 09/05/17 08:00 Oxymask 3.0 09/05/17 07:20 36.8 68 20 106/67 (80) 92 Oxymask 3.0 09/05/17 06:53 70 20 97 Mask 4.0 09/05/17 04:19 36.6 76 19 117/63 (81) 98 Oxymask 4.0 09/05/17 04:00 Oxymask 4.0 09/05/17 02:02 57 20 97 Mask 4.0 09/05/17 00:32 36.9 56 21 89/52 (64) 95 Oxymask 4.0 09/04/17 23:59 Oxymask 4.0 09/04/17 20:00 97 Nasal Cannula 4.0 09/04/17 18:55 72 20 97 Mask 4.0 09/04/17 18:47 36.9 65 20 106/80 (89) 94 Oxymask 4.0 09/04/17 17:58 36.5 83 32 92 4.0 09/04/17 15:00 92 Oxymask 4.0 09/04/17 15:00 36.5 83 32 128/70 (89) 92 Nasal Cannula 4.0 09/04/17 14:05 76 20 95 Nasal Cannula 4.0 09/04/17 14:03 107 24 94 Oxymask 4.0 Laboratory Results: Last 24 Hours Test 09/04/17 15:38 09/04/17 20:38 09/05/17 02:35 09/05/17 05:52 Bedside Glucose 111 mg/dl 111 mg/dl 144 mg/dl White Blood Count 16.20 K/uL Red Blood Count 4.52 M/uL Hemoglobin 13.8 g/dL Hematocrit 40.3 % Mean Corpuscular Volume 89.2 fL Mean Corpuscular Hemoglobin 30.5 pg Mean Corpuscular Hemoglobin Concent 34.2 g/dl RDW Standard Deviation 43.3 fL RDW Coefficient of Variation 13.3 % Platelet Count 267 K/uL Mean Platelet Volume 9.9 fL Creatinine 0.96 mg/dl Est Creatinine Clear Calc Drug Dose 89.8 ml/min Estimated GFR () 115.7 Estimated GFR (Non- 99.9 Test 09/05/17 11:30 09/05/17 12:00 Bedside Glucose 69 mg/dl 110 mg/dl
--- NOTE | 2017-09-05 14:45 | Pharmacy Progress Note ---
Glycemic: Assessment & Plan Date of Service Sep 05, 2017. Assessment & Plan The patient is currently receiving 43 units of insulin per day. BSGs ranging 69 - 156 mg/dl over the past 24hrs. Patient continues to have steroids de- escalated with tomorrow's dose changing to prednisone 40mg. Will change to an intermediate acting insulin for optimal coverage, given controlled BS. * Basal insulin: - Will alter Lantus to scale of 0 units for <219 and 7 units for >220 for night time dose only - Will then schedule NPH 20 units with AM prednisone * Correctional Insulin: Novolog Correction per scale ACHS Goal Range: Low 120 mg/dL - High 150 mg/dL Correction Factor: 20 mg/dL/unit * Prandial insulin: Per carb ratio of 1 unit per 12 grams CHO consumed to continue only [facility] will continue to monitor patient daily and write orders per [facility] inpatient glycemic control protocol. Thanks. * Please note that the plan above was derived based on current level of insulin resistance and hospital stress. These recommendations are appropriate for inpatient admission only. Plan of care upon discharge will need to be reassessed to avoid potential outpatient hypo/hyperglycemia.
--- NOTE | 2017-09-05 15:47 | DIAGNOSTIC IMAGING REPORT ---
CT OF THE CHEST WITHOUT IV CONTRAST CLINICAL HISTORY: COPD exacerbation. Multifocal pneumonia. COMPARISON STUDY: Chest CT August 31, 2017 and chest radiograph September 03, 2017. CT DOSE: 295.00 mGy.cm TECHNIQUE: Axial images of the chest were obtained without IV contrast. Images were reviewed in the axial, sagittal, and coronal planes. IV contrast was not administered for this examination. A dose lowering technique was utilized adhering to the principles of ALARA. FINDINGS: Size of the heart is at the upper limits of normal. Mild dilatation of the ascending aorta, measuring 4.1 cm at the level the main pulmonary artery, is noted. There is no pericardial effusion. No pneumothorax is present. There is a trace left pleural effusion. Mild right middle lobe and lingular airspace opacities have slightly improved since exam of August 31, 2017. Extensive centrilobular nodules with a tree-in-bud distribution shown on prior CT however significantly improved since prior exam. No cavitation. Bony thorax and upper abdomen are unremarkable this unenhanced examination. IMPRESSION: 1. Significant improvement in centrilobular nodules with tree-in-bud distribution shown on prior CT of August 31, 2017 which suggests improving bronchiolitis. Persistent, but improved, right middle lobe and lingular opacities which favors an improving infectious process. 2. Mild dilatation of the ascending aorta, measuring 4.1 cm. Electronically signed by: Gianni Koroma M.D. 09/05/2017 3:46 PM Dictated Date/Time: 09/05/2017 3:39 PM
--- NOTE | 2017-09-05 19:28 | Progress Note ---
Subjective Date of Service: Sep 05, 2017. Subjective Pt evaluation today including: conversation w/ patient, physical exam, chart review, lab review, review of studies, review of inpatient medication list feeling better breathing better still a lot of CARR but less no other new complaints d/w pt repeat CT shows improvement Problem List Medical Problems: (1) Abscess of groin, right Status: Acute (2) Back strain Status: Acute (3) Bilateral pneumonia Status: Acute (4) Dyspnea Status: Acute (5) Rash Status: Acute Review of Systems all other ROS otherwise negative except for as above Objective Vital Signs Date Time Temp Pulse Resp B/P (MAP) Pulse Ox O2 Delivery O2 Flow Rate FiO2 09/05/17 18:51 79 18 96 Nasal Cannula 3.0 09/05/17 17:34 20 96 Nasal Cannula 4.0 09/05/17 16:39 36.7 69 20 118/69 (85) 96 3.0 09/05/17 16:00 95 Oxymask 4.0 09/05/17 13:20 82 20 95 Mask 3.0 09/05/17 12:00 Oxymask 3.0 09/05/17 11:32 36.5 68 20 116/77 (90) 95 Nasal Cannula 3.0 09/05/17 08:00 Oxymask 3.0 09/05/17 07:20 36.8 68 20 106/67 (80) 92 Oxymask 3.0 09/05/17 06:53 70 20 97 Mask 4.0 09/05/17 04:19 36.6 76 19 117/63 (81) 98 Oxymask 4.0 09/05/17 04:00 Oxymask 4.0 09/05/17 02:02 57 20 97 Mask 4.0 09/05/17 00:32 36.9 56 21 89/52 (64) 95 Oxymask 4.0 09/04/17 23:59 Oxymask 4.0 09/04/17 20:00 97 Nasal Cannula 4.0 Physical Exam General Appearance: no apparent distress Eyes: EOMI ENT: hearing grossly normal Neck: trachea midline Respiratory/Chest: no respiratory distress, no accessory muscle use Extremities: normal range of motion Neurologic/Psychiatric: pressure tester II-XII nml as tested, alert, normal mood/affect Skin: normal color, warm/dry Laboratory Results Last 24 Hours Test 09/04/17 20:38 09/05/17 02:35 09/05/17 05:52 09/05/17 11:30 Bedside Glucose 111 mg/dl 144 mg/dl 69 mg/dl White Blood Count 16.20 K/uL Red Blood Count 4.52 M/uL Hemoglobin 13.8 g/dL Hematocrit 40.3 % Mean Corpuscular Volume 89.2 fL Mean Corpuscular Hemoglobin 30.5 pg Mean Corpuscular Hemoglobin Concent 34.2 g/dl RDW Standard Deviation 43.3 fL RDW Coefficient of Variation 13.3 % Platelet Count 267 K/uL Mean Platelet Volume 9.9 fL Creatinine 0.96 mg/dl Est Creatinine Clear Calc Drug Dose 89.8 ml/min Estimated GFR () 115.7 Estimated GFR (Non- 99.9 Test 09/05/17 12:00 09/05/17 16:29 Bedside Glucose 110 mg/dl 216 mg/dl Assessment and Plan hypoxia and respiratory distress -due to infectious process - atypicals vs viral most likely -continue zithromax, vanco stopped 08/25, stop zosyn today since appearance seems most fitting w atypicals -transition to NC O2 - w diffuse pneumonia, suspect will need a time of home O2 - he expresses understanding of this ?asthma vs restrictive lung disease vs upper airway disease -no old PFTs -for now managing as asthma exacerbated by atypical pneumonia -as above -improving -PFTs as outpt, pulm eval ?possibly bronch as outpt spina bifida -doesn't show gross deformity that would hint at restrictive disease -ongoing home meds -again outpt PFTs as above tobacco abuse -previously counselled to quit - so far he seems to be motivated to do so DVT proph -heparin SQ hypothyroidism -continue synthroid hyperglycemia -a1c 5.9 - mild impaired glucose tolerance -steroid effect acutely - insulins managing to goal for current status - anticipate easier control as steroids are reduced dispo - stable for med/surg Continued [facility] stay due to: multiple IV medications needed Discharge planning: home
[2017-09-05] MEDS: TRAZODONE HCL 50 MG TAB PO SCH (20:35)
[2017-09-05] MEDS ORDERED: INSULIN GLARGINE SOLOSTAR 100 UNITS/ML 3 ML PEN SC ONE (21:00)
[2017-09-06] MEDS: ALBUT/IPRATROP 3MG/0.5MG NEB 3 ML VIAL INH SCH ×2 (02:19→07:09)
[2017-09-06 02:21] VITALS: PULSE 71; O2SAT 95
[2017-09-06] MEDS: GUAIFENESIN 200 MG TAB PO SCH ×3 (04:49→12:00)
[2017-09-06] MEDS: HEPARIN SOD 5000 UNIT/0.5 ML CARP SQ SCH ×2 (06:23→14:00)
[2017-09-06] MEDS: LEVOTHYROXINE 200 MCG TAB PO SCH (06:23)
[2017-09-06 07:05] VITALS: BP 123/80; PULSE 96; TEMP 36.5; O2SAT 92
[2017-09-06 07:09] VITALS: PULSE 91; O2SAT 96
--- NOTE | 2017-09-06 07:42 | Medical Student: [facility] ---
Med Student Progress Note Date of Service Sep 06, 2017. Subjective Pt evaluation today including: conversation w/ patient Russ is doing very well today. He was sitting up out of his chair and was speaking with me for several minutes without oxygen, and then we took a walk around the [place] without getting short of breath; his O2 sat when we returned to his room was 90-89%. He told me he doesn't feel like he needs to wear the nasal cannula while he is sitting down, and he has walked around a lot, including to the cafeteria, without needing supplemental oxygen. He is currently on 2 L nasal cannula PRN with a sat of 96% as of 0800. States that his cough is almost gone. He is still using the nebulizer and says that is helping. Denies fever, chills, chest pain, nausea, vomiting, claudication, palpitations. Is eating and drinking well and has no problems moving bowels or voiding. He is now in the med /surg/ortho unit and seems to be much happier now that he can wlak around as much as he wants. We are hoping for discharge later today. Review of Systems Constitutional: No fever, No chills Respiratory: + cough, + wheezing, + dyspnea on exertion, No sputum, No dyspnea at rest Cardiac: No chest pain, No orthopnea Abdomen: No pain, No nausea, No vomiting Musculoskeletal: No joint pain, No swelling Male : No incontinence Neurologic: No weakness Skin: No rash, No itch All Other Systems: Reviewed and Negative Objective Vital Signs Date Time Temp Pulse Resp B/P (MAP) Pulse Ox O2 Delivery O2 Flow Rate FiO2 09/06/17 07:09 91 16 96 Nasal Cannula 2.0 09/06/17 07:05 36.5 96 20 123/80 (94) 92 Nasal Cannula 2.0 09/06/17 02:21 71 18 95 Nasal Cannula 2.0 09/06/17 00:00 Nasal Cannula 3.0 Oxymask 09/05/17 22:55 36.3 77 20 97/61 (73) 96 Nasal Cannula 3.0 09/05/17 22:40 36.6 95 20 104/70 (81) 95 Nasal Cannula 2.0 09/05/17 22:16 36.8 76 18 92 2.0 09/05/17 21:45 92 Nasal Cannula 92 09/05/17 20:06 36.8 76 18 121/69 (86) 99 09/05/17 20:00 94 Nasal Cannula 2.0 Oxymask 09/05/17 19:00 96 Nasal Cannula 3.0 09/05/17 18:51 79 18 96 Nasal Cannula 3.0 09/05/17 17:34 20 96 Nasal Cannula 4.0 09/05/17 16:39 36.7 69 20 118/69 (85) 96 3.0 09/05/17 16:00 95 Oxymask 4.0 09/05/17 13:20 82 20 95 Mask 3.0 09/05/17 12:00 Oxymask 3.0 09/05/17 11:32 36.5 68 20 116/77 (90) 95 Nasal Cannula 3.0 09/05/17 08:00 Oxymask 3.0 Physical Exam General Appearance: WD/WN, no apparent distress Neck: supple, no adenopathy Respiratory/Chest: chest non-tender, no respiratory distress, + wheezing Cardiovascular: regular rate, rhythm, no edema Abdomen: normal bowel sounds, non tender, soft Extremities: normal range of motion, non-tender, no pedal edema Neurologic/Psychiatric: alert, oriented x 3 Skin: normal color, warm/dry Laboratory Results Last 24 Hours Test 09/05/17 11:30 09/05/17 12:00 09/05/17 16:29 09/05/17 20:52 Bedside Glucose 69 mg/dl 110 mg/dl 216 mg/dl 141 mg/dl Assessment and Plan Assessment and Plan: Assessment/Plan: This is a 37-year-old gentleman with a history of pneumonia/asthma exacerbation and spina bifida who presented to the ED 08/30 with severe shortness of breath and productive cough. DDx includes pneumonia, asthma exacerbation, COPD, PE, bronchitis, CHF. Primary: pneumonia/asthma exacerbation -Continue IV azithromycin; Zosyn removed as this appears to be an atypical pneumonia -Continue O2 protocol - was 96% sat on 2L nasal this morning, was not on oxygen when I was speaking with him and had sat of 91%. -Discontinue IV prednisolone and switch to PO, 40 mg -Continue Duo-Neb treatments -Continue Symbicort -Moved him to med/surg/ortho last night Secondary: tobacco use -Offer nicotine patch -Inpatient smoking cessation counseling followed by outpatient counseling -Establish new PCP per patient Hyperglycemia: -Likely due to steroids; A1c of 5.9 -Will treat with insulin acutely Hypothyroid: -Continue Synthroid Insomnia: -Continue trazodone Continued [facility] stay due to: multiple IV medications needed Discharge planning: home
[2017-09-06 08:00] VITALS: O2SAT 96
[2017-09-06] MEDS ORDERED: NovoLIN-N (NPH) PER UNIT CHARGE SQ SCH (08:00)
--- NOTE | 2017-09-06 08:12 | Pulmonology Progress Note ---
Pulmonary Progress Note Date of Service Sep 06, 2017. Attending Dr. Max Subjective Patient is feeling much improved this morning. He states that he has been up walking around this morning and has had no real SOB or CARR. He was on 2 L nasal cannula this morning, but went walking around without oxygen and felt fine today. He is currently without O2 during my exam and appears to have no labored breathing. No new labs Repeat CT scan yesterday showed improvement of centrilobular nodules with tree- in-bud distribution suggesting improving bronchiolitis/infectious process. Noted mild dilatation of ascending aorta measuring 4.1 cm. These images were viewed by me today as well. Reviewed meds: D/C'd IV SoluMedrol--> Transition to PO Prednisone Day 3 Azithromycin Day 3 Zosyn-- D/C'd Symbicort, Robitussin-AC, Duoneb ROS otherwise negative. Objective CT OF THE CHEST WITHOUT IV CONTRAST CLINICAL HISTORY: COPD exacerbation. Multifocal pneumonia. COMPARISON STUDY: Chest CT August 31, 2017 and chest radiograph September 03, 2017. CT DOSE: 295.00 mGy.cm TECHNIQUE: Axial images of the chest were obtained without IV contrast. Images were reviewed in the axial, sagittal, and coronal planes. IV contrast was not administered for this examination. A dose lowering technique was utilized adhering to the principles of ALARA. FINDINGS: Size of the heart is at the upper limits of normal. Mild dilatation of the ascending aorta, measuring 4.1 cm at the level the main pulmonary artery, is noted. There is no pericardial effusion. No pneumothorax is present. There is a trace left pleural effusion. Mild right middle lobe and lingular airspace opacities have slightly improved since exam of August 31, 2017. Extensive centrilobular nodules with a tree-in-bud distribution shown on prior CT however significantly improved since prior exam. No cavitation. Bony thorax and upper abdomen are unremarkable this unenhanced examination. IMPRESSION: 1. Significant improvement in centrilobular nodules with tree-in-bud distribution shown on prior CT of August 31, 2017 which suggests improving bronchiolitis. Persistent, but improved, right middle lobe and lingular opacities which favors an improving infectious process. 2. Mild dilatation of the ascending aorta, measuring 4.1 cm. VS reviewed: 09/06 0709 HR 91 RR16 BP 123/80 SaO2 96% on 2 L General: Patient is awake, alert, cooperative, and in no acute distress. Head: Normocephalic, Atraumatic. ENT: PERRLA, No discharge, EOMI, Sclera normal Neck: Normal ROM. Trachea midline. No stridor Respiratory: Mild rhonchi in right lung. Otherwise much improved. No respiratory distress. No accessory muscle use. No O2 supplementation during exam. Cardiovascular: Regular rate and rhythm. No murmur appreciate. Normal S1/S2. Abdomen: Nontender to palpation. Normal bowel sounds hear throughout. No guarding. Abdomen is soft and nontender Back: Normal inspection. Extremities: Trace edema RLE. Neuro: Alert, Oriented x 3. CN II-XII grossly intact. Sensation and motor function grossly intact. Psych: Mood and affect are normal. Assessment & Plan Asthma Spina Bifida Heavy tobacco user Hypoxic respiratory failure Multifocal pneumonia Patient's lungs overall sound improved, and he is feeling better today. He was off O2 supplementation during my exam and feeling well. He has been walking around some this morning without SOB. Repeat CT of chest looked improved. Patient does have improvement in his wheezing, therefore will continue to taper steroids. Continue PO Prednisone 40 mg today and tomorrow. Likely will begin taper from there. Patient may ultimately need bronchoscopy for further evaluation of tracheal abnormality seen on initial CT scan. Patient continues on Azithromycin. Recommend completing 7 days. Patient will need a 2 step prior to discharge as well. We will follow. Patient and plan reviewed and agreed upon. Data Medications: Current Inpatient Medications Medications (Trade) Dose Ordered Sig/Linette Route Start Time Stop Time Status Last Admin Dose Admin Heparin Sodium (Porcine) (Heparin Sq 5000 Unit/0.5ml) 5,000 unit Q8H SQ 08/30/17 22:00 09/29/17 21:59 09/06/17 06:23 5,000 UNIT Acetaminophen (Tylenol Tab) 650 mg Q4H PRN PO 08/30/17 20:00 09/29/17 19:59 09/03/17 19:42 650 MG Al Hydrox/Mg Hydrox/Simethicone (Maalox Max Susp) 15 ml Q4H PRN PO 08/30/17 20:00 09/29/17 19:59 Magnesium Hydroxide (Milk Of Magnesia Susp) 30 ml Q6H PRN PO 08/30/17 20:00 09/29/17 19:59 09/01/17 07:25 30 ML Polyethylene (Miralax Powder Packet) 17 gm DAILY PRN PO 08/30/17 20:00 09/29/17 19:59 09/02/17 07:11 17 GM Ondansetron HCl (Zofran Inj) 4 mg Q6H PRN IV 08/30/17 20:00 09/29/17 19:59 Albuterol/ Ipratropium (Duoneb) 3 ml Q6R INH 08/30/17 21:00 09/29/17 20:59 09/06/17 07:09 3 ML Baclofen (Lioresal Tab) 10 mg DAILY PRN PO 08/30/17 21:45 09/29/17 21:44 09/05/17 08:06 10 MG Budesonide/ Formoterol Fumarate (Symbicort 160/ 4.5 Inh) 2 puffs BID INH 08/31/17 08:00 09/30/17 07:59 09/05/17 20:35 2 PUFFS Diclofenac Sodium (Voltaren Tab) 75 mg DAILY PO 08/31/17 08:00 09/30/17 07:59 09/05/17 08:07 75 MG Levothyroxine Sodium (Synthroid Tab) 200 mcg DAILYBB PO 08/31/17 06:30 09/30/17 06:29 09/06/17 06:23 200 MCG Trazodone HCl (Desyrel Tab) 50 mg HS PO 08/30/17 22:00 09/29/17 21:59 09/05/17 20:35 50 MG Pantoprazole Sodium (Protonix Tab) 40 mg QAM PO 09/01/17 08:00 10/01/17 07:59 09/05/17 08:07 40 MG Albuterol Sulfate (Ventolin 0.083% 2.5MG/3ML Neb) 2.5 mg Q2R PRN INH 08/31/17 10:15 09/29/17 19:59 Nicotine (Nicoderm Cq 21MG Patch) 1 patch QAM TD 09/02/17 09:00 10/02/17 08:59 09/05/17 08:08 1 PATCH Miscellaneous (Remove Nicoderm Patch) 1 ea HS N/A 09/01/17 21:00 10/01/17 20:59 09/05/17 20:35 1 EA Codeine Phosphate/ Guaifenesin (Robitussin-AC Sugar Free Syrup) 10 ml Q6H PRN PO 09/01/17 10:00 10/01/17 09:59 Azithromycin 500 mg/Dextrose 255 ml @ 125 mls/hr DAILY IV 09/03/17 09:00 09/09/17 08:59 09/05/17 08:02 125 MLS/HR Glucose (Glucose 40% Gel) 15-30 GRAMS 15 GRAMS... UD PRN PO 09/03/17 07:00 10/03/17 06:59 Glucose (Glucose Chew Tab) 4-8 Tablets 4 Tabl... UD PRN PO 09/03/17 07:00 10/03/17 06:59 Dextrose (Dextrose 50% 50ML Syringe) 25-50ML OF 50% DW IV FOR... UD PRN IV 09/03/17 07:00 10/03/17 06:59 Glucagon (Glucagon Inj) 1 mg UD PRN SQ 09/03/17 07:00 10/03/17 06:59 Miscellaneous Information (Consult Glycemic Management Pharmacy) 1 ea UD N/A 09/03/17 08:11 10/03/17 08:10 Guaifenesin (Organidin Nr Tab) 200 mg Q4 PO 09/03/17 08:15 10/03/17 08:14 09/06/17 04:49 200 MG Fluticasone Propionate (Flonase Nasal Bloomery) 2 sprays BID NA 09/03/17 21:00 10/03/17 20:59 09/05/17 20:35 2 SPRAYS Prednisone (PredniSONE TAB) 40 mg DAILY PO 09/06/17 09:00 10/06/17 08:59 Insulin Aspart (novoLOG ASPART) SLIDING SCALE ACHS SC 09/06/17 06:30 10/06/17 06:59 Insulin Human NPH (novoLIN-N U-100 NPH PER UNIT) 20 units DAILY@0800 SQ 09/06/17 08:00 10/06/17 07:59 Vital Signs: Date Time Temp Pulse Resp B/P (MAP) Pulse Ox O2 Delivery O2 Flow Rate FiO2 09/06/17 07:09 91 16 96 Nasal Cannula 2.0 09/06/17 07:05 36.5 96 20 123/80 (94) 92 Nasal Cannula 2.0 09/06/17 02:21 71 18 95 Nasal Cannula 2.0 09/06/17 00:00 Nasal Cannula 3.0 Oxymask 09/05/17 22:55 36.3 77 20 97/61 (73) 96 Nasal Cannula 3.0 09/05/17 22:40 36.6 95 20 104/70 (81) 95 Nasal Cannula 2.0 09/05/17 22:16 36.8 76 18 92 2.0 09/05/17 21:45 92 Nasal Cannula 92 09/05/17 20:06 36.8 76 18 121/69 (86) 99 09/05/17 20:00 94 Nasal Cannula 2.0 Oxymask 09/05/17 19:00 96 Nasal Cannula 3.0 09/05/17 18:51 79 18 96 Nasal Cannula 3.0 09/05/17 17:34 20 96 Nasal Cannula 4.0 09/05/17 16:39 36.7 69 20 118/69 (85) 96 3.0 09/05/17 16:00 95 Oxymask 4.0 09/05/17 13:20 82 20 95 Mask 3.0 09/05/17 12:00 Oxymask 3.0 09/05/17 11:32 36.5 68 20 116/77 (90) 95 Nasal Cannula 3.0 09/05/17 08:00 Oxymask 3.0 Laboratory Results: Last 24 Hours Test 09/05/17 11:30 09/05/17 12:00 09/05/17 16:29 09/05/17 20:52 Bedside Glucose 69 mg/dl 110 mg/dl 216 mg/dl 141 mg/dl
[2017-09-06] MEDS: PANTOprazole SOD 40 MG TAB PO SCH (08:31)
[2017-09-06] MEDS: DICLOFENAC SOD EC 75 MG TABCR PO SCH (08:32)
[2017-09-06] MEDS: AZITHROMYCIN IV 500 MG in DEXTROSE 5% 250ML 250 ML IV SCH (08:34)
[2017-09-06] MEDS: BUDESONIDE/FORMOTEROL FUMARATE 160/4.5 60 PUFFS/INHALER INH SCH (08:34)
[2017-09-06] MEDS: FLUTICASONE PROPIONATE NA SPR 16 GM BTL SCH (08:34)
[2017-09-06 08:35] LABS: ARTERIAL BLD GAS O2 SATURATION 91.1 % (90-95); ARTERIAL BLOOD GAS BASE EXCESS 2.5 mEq/L (-9-1.8); ARTERIAL BLOOD GAS HCO3 26 mmol/L (19-24); ARTERIAL BLOOD GAS PO2 62 mm/Hg (80-95); ARTERIAL BLOOD GAS pH 7.46 (7.35-7.45)
[2017-09-06] MEDS: BACLOFEN 10 MG TAB PO PRN (08:35)
[2017-09-06 08:36] LABS: ALLEN TEST POS (POS); O2 ADMINISTRATION ROOM AIR
[2017-09-06] MEDS: NICOTINE 21 MG/24 HR TDSY TD SCH (08:36)
[2017-09-06] MEDS: INSULIN ASPART 100 UNITS/ML 3 ML PEN SC SCH ×2 (08:48→12:19)
[2017-09-06] MEDS ORDERED: VNTHFA/IN INH (12:04)
[2017-09-06] MEDS ORDERED: PRED10TA PO (12:04)
[2017-09-06] MEDS ORDERED: AZIT500T26 PO (12:04)
[2017-09-06] MEDS ORDERED: ALBINS INH (12:04)
--- NOTE | 2017-09-06 12:32 | Discharge Instructions ---
Discharge Instructions Date of Service Sep 06, 2017. Admission Reason for Admission: Copd Exacerbation, Multifocal Pneumonia Discharge Discharge Diagnosis / Problem: pneumonia causing asthma exacerbation Discharge Goals Goal(s): Diagnostic testing, Therapeutic intervention Activity Recommendations Activity Limitations: resume your previous activity (take it easy until you're totally better - see below for more details) . Instructions / Follow-Up Instructions / Follow-Up pneumonia -the pneumonia appeared consistent with what are called "atypical" bacteria - the way it was in both lungs "speckled" throughout - usually medications like azithromycin (zithromax, the antibiotic we have you on) does a good job of clearing this -you'll need to finish three more days of zithromax (azithromycin) - one pill a day, next dose is to be tomorrow (09/07) asthma -because pneumonias are really inflammatory problems, they tend to flare asthma - as was the case with you -treating the pneumonia obviously is the main part of treatment, but we also have to manage the asthma separately - we've got you on the prednisone as a tapering course to reduce the inflammation in your lungs and help improve the flare of the asthma. you'll take 40mg (4 pills) for the next 2 days then 30mg ( 3 pills) for two days then 20mg (two pills) for two days then 10mg (1 pill) for two days, then stop --for the chronic management of your asthma: -symbicort - this is what's called a "maintenance" inhaler - it helps "keep ahead" of the problem - and is meant to be used twice a day every day, no matter how you feel. you won't really feel it when you take it, but taking it routinely helps keep you out of trouble. rinse your mouth after using int -albuterol - we'll have you right now having two different forms of albuterol - your inhaler, and albuterol for your nebulizer. look at them as interchangeable (different versions of the same thing). right now it sounds like you feel it better when you take the albuterol as a nebulizer, but once you are coached on how to best use the inhaler (along with the spacer) studies do show that for most people the inhaler should work as well as a nebulizer. bring your inhaler with you to pulmonary appointments so the nurses can math coach you on how to best use it oxygen levels -your oxygen levels are "ok but not great" -- this is expected as you're recovering from a pneumonia like you had. we don't need to send you home on oxygen, but if you overdo it you could get yourself in trouble some. take it easy until you're totally recovered. for an added measure of safety, we'd recommend you get a pulse oximeter when you're at the pharmacy so that you can measure your levels "true normal" would be 96% and up for most pulse-oximeters "acceptable" would be between 92-96% 90-92% consider trying a dose of albuterol and see if that brings numbers up some, if you're persistently low 90's even at rest and after a nebulizer, it is worth a phone call to your regular doctor for guidance less than 90% that doesn't improve with rest or albuterol, OR less than 90 and feeling short of breath, is a situation that should be seen right away smoking -you HAVE to quit smoking - a surefire way to almost guarantee being back in the hospital is to keep smoking. as you mentioned, you do have really reasonable concerns about not gaining a lot of weight after you quit. most people when they quit do eat more -- often just out of habit. if you're aware of this, you can really blunt the impact on your body and on your health --- being mindful of this as a common habit can reduce how much you snack, and when you snack just eating healthy foods (fruits, vegetables) can really minimize the impact on your weight and health. diabetes -you are NOT a diabetic - the sugars were up as a side effect to the steroids. however, your family history certainly has you at risk for diabetes. to avoid this, really try to minimize not only the sugars, but the starches, in your diet. for the huge majority of type 2 diabetics, it is an illness that can be controlled (or sometimes even "cured") with big reductions in how much simple/ sugary/starchy carbs you eat Current Hospital Diet Patient's current hospital diet: Diabetes Type 2 Diet Discharge Diet Recommended Diet: Regular Diet Pending Studies Studies pending at discharge: no Laboratory Results Hemoglobin A1c Test 09/03/17 05:19 Range/Units Estimated Average Glucose 123 mg/dl Hemoglobin A1c 5.9 H 4.5-5.6 % Medical Emergencies . Who to Call and When: Medical Emergencies: If at any time you feel your situation is an emergency, please call 911 immediately. . Non-Emergent Contact Non-Emergency issues call your: Primary Care Provider, [facility] . . "Provider Documentation" section prepared by Oliverio Cook. . VTE Core Measure Inpt VTE Proph given/why not?: Unfractionated heparin SQ
--- NOTE | 2017-09-06 13:43 | Discharge Summary ---
Discharge Summary Date of Service Sep 06, 2017. Discharge Summary Admission Date: Aug 30, 2017 at 19:52 Discharge Date: Sep 06, 2017 Discharge Disposition: Home Principal Diagnosis: diffuse atypical pneumonia w asthma exacerbation and hypoxia Immunizations: Have You Had Influenza Vaccine: No History of Tetanus Vaccine?: Yes History of Pneumococcal: No History of Hepatitis B Vaccine: No Procedures: CT OF THE CHEST WITHOUT IV CONTRAST CLINICAL HISTORY: COPD exacerbation. Multifocal pneumonia. COMPARISON STUDY: Chest CT August 31, 2017 and chest radiograph September 03, 2017. CT DOSE: 295.00 mGy.cm TECHNIQUE: Axial images of the chest were obtained without IV contrast. Images were reviewed in the axial, sagittal, and coronal planes. IV contrast was not administered for this examination. A dose lowering technique was utilized adhering to the principles of ALARA. FINDINGS: Size of the heart is at the upper limits of normal. Mild dilatation of the ascending aorta, measuring 4.1 cm at the level the main pulmonary artery, is noted. There is no pericardial effusion. No pneumothorax is present. There is a trace left pleural effusion. Mild right middle lobe and lingular airspace opacities have slightly improved since exam of August 31, 2017. Extensive centrilobular nodules with a tree-in-bud distribution shown on prior CT however significantly improved since prior exam. No cavitation. Bony thorax and upper abdomen are unremarkable this unenhanced examination. IMPRESSION: 1. Significant improvement in centrilobular nodules with tree-in-bud distribution shown on prior CT of August 31, 2017 which suggests improving bronchiolitis. Persistent, but improved, right middle lobe and lingular opacities which favors an improving infectious process. 2. Mild dilatation of the ascending aorta, measuring 4.1 cm. Electronically signed by: Gianni Koroma M.D. 09/05/2017 3:46 PM Dictated Date/Time: 09/05/2017 3:[address] ANGIOGRAM OF THE CHEST CLINICAL HISTORY: Hypoxia. Tachypnea. COMPARISON STUDY: Chest x-ray dated 08/30/2017. TECHNIQUE: Following the IV administration of 95 cc of Optiray 320, CT angiogram of the chest was performed from the upper abdomen to the thoracic inlet utilizing the pulmonary embolus protocol. Images are reviewed in the axial, sagittal, and coronal planes. 3-D MIPS images are created and assessed. IV contrast was administered without complication. A dose lowering technique was utilized adhering to the principles of ALARA. The examination is degraded by motion artifact. CT DOSE: 277.36 mGy.cm FINDINGS: Thyroid: Atrophic. Thoracic aorta: The thoracic aorta is normal in caliber and demonstrates 4-vessel variant arch anatomy. No dissection is seen. Pulmonary vasculature: The pulmonary trunk is normal in caliber. There are no filling defects identified in main, lobar, or proximal segmental pulmonary branches to suggest pulmonary embolus. Evaluation of the peripheral vessels is degraded by motion artifact. Heart: The heart is top normal in size and without pericardial effusion. Lungs and pleural spaces: Evaluation of the lung parenchyma is significant degraded by motion artifact. There is diffuse tree-in-bud nodularity with mild associated groundglass change. More focal consolidation is seen in the right middle lobe and lingula. The trachea and central airways are grossly clear. No pleural effusion is seen. Mediastinum: There is no mediastinal lymphadenopathy. Kiki: Prominent right hilar nodes measure up to 1.1 cm in short axis. Axillae: There is no axillary lymphadenopathy. Upper abdomen: Partially visualized upper abdominal viscera is within normal limits. Skeletal structures: No lytic or blastic bony lesions are seen. IMPRESSION: 1. Significantly motion compromised examination. 2. There is no evidence of central pulmonary embolus in the main, lobar, or proximal segmental pulmonary arteries. The peripheral vessels are not well assessed. 3. There is diffuse tree-in-bud nodularity with associated groundglass change seen throughout both lungs, likely representing an infectious/inflammatory pneumonitis. This may represent atypical infection. Follow-up chest CT in 2-3 months time is recommended to document resolution. 4. More focal airspace consolidation in the right middle lobe and lingula tibia on an infectious basis or represent atelectasis. 5. No pleural effusion is identified. Electronically signed by: Aldo Souza M.D. 08/31/2017 1:43 PM Dictated Date/Time: 08/31/2017 1:37 PM Last Resulted CBC 09/05/17 05:52 Last Resulted BMP 09/04/17 05:18 09/05/17 05:52 Item Value Date Time Hemoglobin A1c 5.9 % H 09/03/17 0519 Aspartate Amino Transf (AST/SGOT) 50 U/L H 09/04/17 0518 Alanine Aminotransferase (ALT/SGPT) 215 U/L H 09/04/17 0518 C-Reactive Protein 11.10 mg/dl H 09/01/17 0749 Total Protein 6.0 gm/dl L 09/04/17 0518 [id number] 213 MG/DL H 09/02/17 0619 Thyroid Stimulating Hormone (TSH) 3.340 uIu/ml 08/30/17 1637 Procalcitonin 0.27 ng/ml 09/01/17 0749 Mycoplasma pneumoniae IgG Antibody 1.25 H 09/02/17 1136 Mycoplasma pneumoniae IgM Antibody 110 U/mL 09/02/17 1136 Influenza Type A (RT-PCR) Neg for Influ A 04/05/16 1125 Influenza Type A Antigen Neg for Influ A 08/30/17 1637 Urine Legionella Antigen NOT DETECTED 09/02/17 0000 Medication Reconciliation New Medications: Azithromycin (Zithromax) 500 Mg Tab 500 MG PO DAILY, #3 TAB next dose 09/07 Prednisone Tab (Prednisone) 10 Mg Tab 10 MG PO UD, #30 TAB 4 po x 3 days then 3 po x 3 days then 2 po x 3 days then 1 po x 3 days then stop Albuterol Sulf (Albuterol Sulfate) 2.5 Mg/3 Ml Nebu 2.5 MG INH Q4 PRN for Shortness of Breath, #120 AMP Changed Medications: Albuterol Hfa (Ventolin Hfa) 200 Puffs/12460 Mcg Aers 1-2 PUFFS INH Q4 PRN for SOB/Wheezing, #1 INHALER (Changed from: Q4-6HRS) Continued Medications: Baclofen (Baclofen) 10 Mg Tab 10 MG PO DAILY PRN for Abdominal Pain Budesonide/Formoterol Fumarate (Symbicort 160/4.5 Inhaler) 120 Puffs/ Aero 2 PUFFS INH BID RINSE MOUTH AFTER USE Diclofenac Sod (Diclofenac Sodium Dr) 75 Mg Tabcr 75 MG PO DAILY TAKE THIS MEDICATION WITH FOOD Levothyroxine Sodium (Levothyroxine Sodium) 200 Mcg Tab 200 MCG PO DAILY Trazodone Hcl (Trazodone) 50 Mg Tab 50 MG PO HS Discharge Exam Physical Exam: General Appearance: no apparent distress Eyes: EOMI ENT: hearing grossly normal Neck: trachea midline Respiratory/Chest: no respiratory distress, no accessory muscle use Extremities: normal inspection 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, alert, normal mood/affect Skin: normal color, warm/dry Hospital Course hypoxia and respiratory distress -due to infectious process - atypicals vs viral most likely -after fairly severe acute phase and appearance that he was likely to improve slowly, has shown dramatic improvements over last 24hrs, and now stable for home -ambulatory pulse ox now not low enough to necessitate home O2, but still encouraged close monitoring (home pulse ox) and rest until showing improvement -see below otherwise for pneumonia and asthma specifically atypical pneumonia -finish 7 days of zithromax 500mg daily ?asthma vs restrictive lung disease vs upper airway disease -prednisone taper as Rx'd -reviewed inhalers w pt - was taking symbicort prn --- discussed symbicort BID and albuterol prn (also discussed HFA and neb being same medication - he notes difficulty with feeling that HFA works well - has spacer. encouraged to use neb for now, bring HFA to pulmonary office and could hopefully then be "coached " on using) -no old PFTs -for now managing as asthma exacerbated by atypical pneumonia -improving -PFTs as outpt, pulm eval ?possibly bronch as outpt spina bifida -doesn't show gross deformity that would hint at restrictive disease -ongoing home meds -again outpt PFTs as above tobacco abuse -previously counselled to quit - so far he seems to be motivated to do so, discussed high likelihood of further illness including acute relapse if he were to continue to smoke DVT proph -heparin SQ utilized while here hypothyroidism -continue synthroid, TSH OK hyperglycemia -a1c 5.9 - mild impaired glucose tolerance -discussed likelihood of near-definitive role in lifestyle preventing progression to DM2 dispo - stable for home, meds as above. PCP next week, ongoing pulmonary f/u Total Time Spent: Greater than 30 minutes This includes examination of the patient, discharge planning, medication reconciliation, and communication with other providers. Discharge Instructions Please refer to the electronic Patient Visit Report (Discharge Instructions) for additional information. Additional Copies To Jayden Myles M.D.; Ravi Max MD
[2017-09-06 13:56] VITALS: BP 123/80; PULSE 91; TEMP 36.5; O2SAT 96
== END 2017-09-06 15:03 | disposition home or self-care (01) | DRG 193 ==
LOC: C.EDB 16:12 → C.MS4W 19:52 → ENRESERV 20:11 → C.2E 08-31 10:20 → ENRESERV 08-31 11:07 → C.MSICU 09-02 10:34 → ENRESERV 09-04 17:51 → C.2E 09-04 18:10 → EDBEDREQ 09-05 21:52 → ENRESERV 09-05 22:02 → C.MS2W 09-05 22:31
PROVIDERS: ADMIT Internal Medicine; ATTEND Family Medicine
DX: J18.9 Pneumonia, unspecified organism (principal); J96.01 Acute respiratory failure with hypoxia; J45.901 Unspecified asthma with (acute) exacerbation; J44.1 Chronic obstructive pulmonary disease with (acute) exacerbation; J44.0 Chronic obstructive pulmonary disease with (acute) lower respiratory infection; E87.3 Alkalosis; R79.1 Abnormal coagulation profile; E83.41 Hypermagnesemia; T47.4X5A Adverse effect of other laxatives, initial encounter; Y92.538 Other ambulatory health services establishments as the place of occurrence of the external cause; T38.1X6A Underdosing of thyroid hormones and substitutes, initial encounter; Z91.138 Patient's unintentional underdosing of medication regimen for other reason; R73.9 Hyperglycemia, unspecified; T38.0X5A Adverse effect of glucocorticoids and synthetic analogues, initial encounter; Q05.9 Spina bifida, unspecified; E03.9 Hypothyroidism, unspecified; H91.92 Unspecified hearing loss, left ear; F32.9 Major depressive disorder, single episode, unspecified; F17.210 Nicotine dependence, cigarettes, uncomplicated; Z91.14 Patient's other noncompliance with medication regimen; Z79.1 Long term (current) use of non-steroidal anti-inflammatories (NSAID); Z79.51 Long term (current) use of inhaled steroids; Z79.899 Other long term (current) drug therapy

== ENCOUNTER → 2018-02-14 | Outpatient (CLI) | payer OTHER ==
[~2018-02-14] MED LIST changes: +ALBINS INH; +AZIT500T26 PO; -BACL10TA PO; -ELMCR TOP; +LEVO200T6 PO; +LRS10 PO; +PRED10TA PO
== END | disposition home or self-care (01) ==
LOC: C.LABBC 10:06
PROVIDERS: ATTEND Internal Medicine
DX: E03.9 Hypothyroidism, unspecified (principal)

== ENCOUNTER 2018-12-02 14:34 | Inpatient (IN) ==
[2018-12-02] MEDS ORDERED: ALBUT/IPRATROP 3MG/0.5MG NEB 3 ML VIAL NEB STA ×2 (14:55→16:52)
--- NOTE | 2018-12-02 14:57 | Emergency Department Note ---
Entered by Car Downey acting as a scribe for Heri Campos DO History of Present Illness General Chief complaint: Shortness of Breath/Dyspnea Stated complaint: CAN'T BREATHE AND CONSTIPATED Source: patient Limitations: no limitations History of Present Illness Provider complaint: SOB Onset (ago): day(s) Location: chest Pain Consistency: + other (Worsening) Maximum Pain Intensity: 8 Quality: + other (SOB) Associated symptoms: + cough and + other (swelling) Treatments prior to arrival: other (inhalers) The patient is a 38 year old male who presents to the Emergency Room with complaints of worsening shortness of breath. The patient states that he has been having a difficulty time breathing for the past couple of days. He does have a history of COPD and notes that he feels similar to his previous COPD exacerbations. The patient has inhalers at home and has been using them without much relief. He does not an associated cough, which is dry. He has not had any fevers, but notes that his whole body feels swollen. Home Medications Home Medications Medication Instructions Recorded Confirmed Type albuterol sulfate [Ventolin HFA] 2 puff INHALATION Q4H PRN 12/02/18 12/02/18 History budesonide-formoterol [Symbicort] 2 puff INHALATION BID 12/02/18 12/02/18 History ipratropium-albuterol 1 vial INHALATION Q4H PRN 12/02/18 12/02/18 History levothyroxine 200 mcg PO DAILY 12/02/18 12/02/18 History Allergies Allergy/AdvReac Type Severity Reaction Status Date / Time latex Allergy Severe HIVES/SHORT Verified 12/02/18 15:37 OF BREATH Latex2 -Systemic Allergic Allergy Severe SHORTNESS Uncoded 12/02/18 15:37 Response OF BREATH Past Med/Surg History Medical History COPD (chronic obstructive pulmonary disease) (Chronic) COPD exacerbation Social History Feels Safe at Home: Yes Smoking Status: Former smoker Smoking End Date: 2 weeks ago Hx Alcohol Use: No Hx Substance Use: No Preferred Language: Greenlandic Review of Systems See HPI for pertinent positives & negatives. and A total of 10 systems reviewed and were otherwise negative Physical Exam Vital Signs Vital Signs - 24 hr 12/02/18 14:40 12/02/18 14:53 12/02/18 16:30 Temperature 37.3 C Temperature Source Oral Sepsis Recent Fever Within 48 Hours No Sepsis New/Unexplained Change in Mental Status No Sepsis Action Taken by Nursing No Action Required Pulse Rate 118 H 115 H Pulse Rate [Apical] Respiratory Rate 22 36 H Respiratory Effort / Characteristics Non-Labored Spontaneous Accessory Muscle Use Respiratory Depth Normal Respiratory Pattern Regular Blood Pressure 104/66 111/81 Blood Pressure [Right Arm] Blood Pressure Mean 78 91 Blood Pressure Mean [Right Arm] Blood Pressure Position [Right Arm] Pulse Oximetry 88 L 91 87 L Oxygen Delivery Method Room Air Nasal Cannula Oxygen Flow Rate 3 12/02/18 16:56 12/02/18 17:00 12/02/18 17:30 Temperature Temperature Source Sepsis Recent Fever Within 48 Hours Sepsis New/Unexplained Change in Mental Status Sepsis Action Taken by Nursing Pulse Rate 115 H 112 H 117 H Pulse Rate [Apical] Respiratory Rate 36 H 36 H 38 H Respiratory Effort / Characteristics Respiratory Depth Respiratory Pattern Blood Pressure 107/75 122/85 Blood Pressure [Right Arm] Blood Pressure Mean 85 97 Blood Pressure Mean [Right Arm] Blood Pressure Position [Right Arm] Pulse Oximetry 91 87 L 86 L Oxygen Delivery Method Nasal Cannula Oxygen Flow Rate 3 12/02/18 18:00 12/02/18 18:30 12/02/18 19:00 Temperature Temperature Source Sepsis Recent Fever Within 48 Hours Sepsis New/Unexplained Change in Mental Status Sepsis Action Taken by Nursing Pulse Rate 115 H 113 H Pulse Rate [Apical] 108 H Respiratory Rate 42 H 31 H 24 Respiratory Effort / Characteristics Spontaneous Respiratory Depth Shallow Respiratory Pattern Blood Pressure 107/61 108/52 L Blood Pressure [Right Arm] 105/48 L Blood Pressure Mean 76 70 Blood Pressure Mean [Right Arm] 67 Blood Pressure Position [Right Arm] Sitting Pulse Oximetry 91 90 90 Oxygen Delivery Method Nasal Cannula Nasal Cannula Nasal Cannula Oxygen Flow Rate 3 3 4 12/02/18 20:26 Temperature Temperature Source Sepsis Recent Fever Within 48 Hours Sepsis New/Unexplained Change in Mental Status Sepsis Action Taken by Nursing Pulse Rate 107 H Pulse Rate [Apical] Respiratory Rate 24 Respiratory Effort / Characteristics Respiratory Depth Respiratory Pattern Blood Pressure 116/76 Blood Pressure [Right Arm] Blood Pressure Mean Blood Pressure Mean [Right Arm] Blood Pressure Position [Right Arm] Pulse Oximetry 92 Oxygen Delivery Method Nasal Cannula Oxygen Flow Rate 4 GENERAL: Patient is awake alert in no acute distress patient is resting comfortably and showing no signs of anxiety EYES: The conjunctivae are clear. The pupils are round and reactive. EARS, NOSE, MOUTH AND THROAT: The nose is without any evidence of any deformity. Mucous membranes are moist tongue is midline NECK: The neck is nontender and supple. RESPIRATORY: Diminished breath sounds were noted throughout. There is expiratory wheezes noted in all lung puri. CARDIOVASCULAR: Regular rate and rhythm noted there no murmurs rubs or gallops normal S1 normal S2 GASTROINTESTINAL: The abdomen is soft. Bowel sounds are present in all quadrants. Abdomen is nontender MUSCULOSKELETAL/EXTREMITIES: There is no evidence of gross deformity full range of motion is noted in the hips and shoulders SKIN: There is no obvious evidence of any rash. There are no petechiae, pallor or cyanosis noted. NEUROLOGIC: Patient is awake alert and oriented x3. Course 1448: Past medical records reviewed. The patient was evaluated in room C11A, and a complete history and physical examination were performed. 1738: I reviewed the patient's case with Dr. [place] [facility] [place] She will evaluate the patient for further management. Administered Medications Discontinued Medications Albuterol (Duoneb) 3 ml NEB NOW STA Stop: 12/02/18 14:56 Last Admin: 12/02/18 15:27 Dose: 3 ml Albuterol (Duoneb) 3 ml NEB NOW STA Stop: 12/02/18 16:53 Last Admin: 12/02/18 17:07 Dose: 3 ml Sodium Chloride (Nss 1000ml) 1,000 mls @ 999 mls/hr IV .Q1H1M ONE Stop: 12/02/18 17:52 Last Infusion: 12/02/18 18:10 Dose: 0 mls/hr Admin: 12/02/18 17:07 Dose: 999 mls/hr Oseltamivir Phosphate (Tamiflu) 75 mg PO NOW STA Stop: 12/02/18 16:53 Last Admin: 12/02/18 17:07 Dose: 75 mg Medical Decision Making Differential Diagnosis Differential diagnosis: Etiologies such as infections, reactive airway disease, COPD, pneumonia, pleural effusion, pulmonary edema, ARDS, pneumothorax, CHF, cardiac ischemia, cardiac tamponade, dysrhythmia, anemia, pulmonary embolism, musculoskeletal, gastrointestinal process, as well as others were entertained. Medical Records Attestation: I reviewed the patient's medical records. Home Medications Current Medication List: was personally reviewed by me Laboratory Data Attestation: I reviewed the patient's lab results. Result diagrams: 12/02/18 15:00 12/02/18 15:00 Lab Results 12/02/18 12/02/18 12/02/18 Range/Units 15:00 15:00 15:00 WBC 6.79 (4.8-10.8) K/uL RBC 5.17 (4.7-6.1) M/uL Hgb 16.0 (14.0-18.0) g/dL Hct 44.9 (42-52) % MCV 86.8 (80-100) fL MCH 30.9 (25-34) pg MCHC 35.6 (32-36) g/dL RDW Std Deviation 41.6 (36.4-46.3) fL RDW Coeff of Berenice 13.0 (11.5-14.5) % Plt Count 169 (130-400) K/uL MPV 9.7 (7.4-10.4) fL Immature Gran % (Auto) 0.1 % Neut % (Auto) 74.6 % Lymph % (Auto) 13.3 % [place] % (Auto) 11.9 % Eos % (Auto) 0.0 % Baso % (Auto) 0.1 % Immature Gran # (Auto) 0.01 (0.00-0.02) K/uL Neut # (Auto) 5.06 (1.4-6.5) K/uL Lymph # (Auto) 0.90 L (1.2-3.4) K/uL [place] # (Auto) 0.81 H (0.11-0.59) K/uL Eos # (Auto) 0.00 (0-0.5) K/uL Baso # (Auto) 0.01 (0-0.2) K/uL PT Cancelled INR Cancelled APTT Cancelled PTT Ratio Cancelled Sodium 132 L (136-145) mmol/L Potassium 3.6 (3.5-5.1) mmol/L Chloride 101 (98-107) mmol/L Carbon Dioxide 23 (21-32) mmol/L Anion Gap 8.0 (3-11) BUN 23 H (7-18) mg/dl Creatinine 1.17 (0.6-1.4) mg/dl Est Cr Clr Drug Dosing 79.6 ml/min Est GFR ( Amer) 90.5 Est GFR (Non-Af Amer) 78.1 BUN/Creatinine Ratio 19.7 (10-20) Glucose 93 (70-99) mg/dl Calcium 8.5 (8.5-10.1) mg/dl Magnesium 2.5 H (1.8-2.4) mg/dl Total Bilirubin 0.6 (0.2-1) mg/dl AST 96 H (15-37) U/L ALT 61 (12-78) U/L Alkaline Phosphatase 77 (45-117) U/L Troponin I < 0.015 (0-0.045) ng/ml Total Protein 7.3 (6.4-8.2) gm/dl Albumin 3.8 (3.4-5.0) gm/dl Globulin 3.5 (2.5-4.0) gm/dl Albumin/Globulin Ratio 1.1 (0.9-2) Urine Color Urine Appearance (Clear) Urine pH (4.5-7.5) Ur Specific [place] (1.000-1.030) Urine Protein (Negative) Urine Glucose (UA) (Negative) Urine Ketones (Negative) Urine Blood (Negative) Urine Nitrite (Negative) Urine Bilirubin (Negative) Urine Urobilinogen (Negative) Ur Leukocyte Esterase (Negative) Urine WBC (Auto) (0-5) /hpf Urine RBC (Auto) (0-4) /hpf U Hyaline Cast (Auto) (0-5) /lpf U Epithel Cells (Auto) (0-5) /lpf Urine Bacteria (Auto) (Negative) Ur Renal Epithelial Cell (0-5) /lpf Amorphous Sediment (None Prsent) Urine Yeast Influenza Type A (PCR) (Neg) Influenza Type B (PCR) (Neg) 12/02/18 12/02/18 12/02/18 Range/Units 15:10 15:49 19:13 WBC (4.8-10.8) K/uL RBC (4.7-6.1) M/uL Hgb (14.0-18.0) g/dL Hct (42-52) % MCV (80-100) fL MCH (25-34) pg MCHC (32-36) g/dL RDW Std Deviation (36.4-46.3) fL RDW Coeff of Berenice (11.5-14.5) % Plt Count (130-400) K/uL MPV (7.4-10.4) fL Immature Gran % (Auto) % Neut % (Auto) % Lymph % (Auto) % [place] % (Auto) % Eos % (Auto) % Baso % (Auto) % Immature Gran # (Auto) (0.00-0.02) K/uL Neut # (Auto) (1.4-6.5) K/uL Lymph # (Auto) (1.2-3.4) K/uL [place] # (Auto) (0.11-0.59) K/uL Eos # (Auto) (0-0.5) K/uL Baso # (Auto) (0-0.2) K/uL PT 10.2 INR 1.0 APTT 31.7 H PTT Ratio 1.2 Sodium (136-145) mmol/L Potassium (3.5-5.1) mmol/L Chloride (98-107) mmol/L Carbon Dioxide (21-32) mmol/L Anion Gap (3-11) BUN (7-18) mg/dl Creatinine (0.6-1.4) mg/dl Est Cr Clr Drug Dosing ml/min Est GFR ( Amer) Est GFR (Non-Af Amer) BUN/Creatinine Ratio (10-20) Glucose (70-99) mg/dl Calcium (8.5-10.1) mg/dl Magnesium (1.8-2.4) mg/dl Total Bilirubin (0.2-1) mg/dl AST (15-37) U/L ALT (12-78) U/L Alkaline Phosphatase (45-117) U/L Troponin I (0-0.045) ng/ml Total Protein (6.4-8.2) gm/dl Albumin (3.4-5.0) gm/dl Globulin (2.5-4.0) gm/dl Albumin/Globulin Ratio (0.9-2) Urine Color Dark Yellow Urine Appearance Cloudy H (Clear) Urine pH 6.0 (4.5-7.5) Ur Specific [place] 1.031 H (1.000-1.030) Urine Protein 1+ H (Negative) Urine Glucose (UA) Negative (Negative) Urine Ketones 1+ H (Negative) Urine Blood Negative (Negative) Urine Nitrite Negative (Negative) Urine Bilirubin Negative (Negative) Urine Urobilinogen Negative (Negative) Ur Leukocyte Esterase Negative (Negative) Urine WBC (Auto) 1-5 (0-5) /hpf Urine RBC (Auto) 0-4 (0-4) /hpf U Hyaline Cast (Auto) 1-5 (0-5) /lpf U Epithel Cells (Auto) >30 H (0-5) /lpf Urine Bacteria (Auto) Negative (Negative) Ur Renal Epithelial Cell 0-5 (0-5) /lpf Amorphous Sediment Present H (None Prsent) Urine Yeast Not Reportable Influenza Type A (PCR) Pos for Influ A A* (Neg) Influenza Type B (PCR) Neg for Influ B (Neg) Imaging Data Attestation: I personally reviewed and interpreted this imaging study as follows : Radiologist's Impression: XR chest 1V portable CLINICAL HISTORY: Dyspnea COMPARISON STUDY: 09/03/2017 FINDINGS: The heart remains the upper limits of normal in size. There is stable aortic tortuosity. There is no focal pulmonary consolidation. There is stable reticulonodular interstitial thickening. There is no overt failure.[ There are no significant pleural effusions IMPRESSION: 1. Stable reticulonodular interstitial thickening. 2. No evidence of lobar consolidation Electronically signed by: El Oneil M.D. 12/02/2018 3:22 PM ECG Data Attestation: I personally reviewed and interpreted this ECG as follows: Indication: SOB/dyspnea Rate (beats per minute): 107 Rhythm: sinus tachycardia Findings: no acute ischemic change and no ectopy Comparison ECG Date: from (08/30/2017) Change: no significant change Blood Pressure Blood Pressure Findings: Normal blood pressure MDM Narrative The patient is a 38-year-old male who presented to the emergency department for an evaluation of shortness of breath. The patient has a history of COPD. He also had significant upper respiratory symptoms. The patient was found to have a positive flu. I discussed the patient's laboratory and radiographic studies with him. Because of the degree of symptoms and the hypoxia I discussed his case with the on-call [facility] hospitalist group. They have agreed to evaluate the patient in the emergency department for further management and disposition I Impression & Plan COPD exacerbation, Influenza A, Hypoxia Discharge Plan Visit Data Chief Complaint: Shortness of Breath/Dyspnea Stated Complaint: CAN'T BREATHE AND CONSTIPATED Other Complaint: Constipation ED Provider: Heri Campos Discharge Problem: COPD exacerbation, Influenza A, Hypoxia Patient Disposition: Being Evaluated by Hospitalist Discharge Instructions Interventions: ED Discharge Assessment Last Done: 12/02/18 20:26 The scribe's documentation has been prepared under my direction and personally reviewed by me in its entirety. I confirm that the note above accurately reflects all work, treatment, procedures, and medical decision making performed by me.
--- NOTE | 2018-12-02 15:23 | XRay Report ---
XR chest 1V portable CLINICAL HISTORY: Dyspnea COMPARISON STUDY: 09/03/2017 FINDINGS: The heart remains the upper limits of normal in size. There is stable aortic tortuosity. Th ere is no focal pulmonary consolidation. There is stable reticulonodular interstitial thickening. The re is no overt failure.[ There are no significant pleural effusions IMPRESSION: 1. Stable reticulonodular interstitial thickening. 2. No evidence of lobar consolidation Electronically signed by: El Oneil M.D. 12/02/2018 3:22 PM
[2018-12-02 15:26] LABS: Basophils # (auto) 0.01 K/uL (0-0.2); Basophils % (auto) 0.1 %; Hematocrit (blood only) 44.9 % (42-52); Immature Granulocytes # (auto) 0.01 K/uL (0.00-0.02); Immature Granulocytes % (auto) 0.1 %; Lymphocytes % (auto) 13.3 %; Mean Corpuscular Hgb Conc 35.6 g/dL (32-36); Mean Corpuscular Volume 86.8 fL (80-100); Mean Platelet Volume 9.7 fL (7.4-10.4); Monocytes # (auto) 0.81 K/uL (0.11-0.59); Monocytes % (auto) 11.9 %; Neutrophils # (auto) 5.06 K/uL (1.4-6.5); Neutrophils % (auto) 74.6 %; Platelet Count 169 K/uL (130-400); RDW Standard Deviation 41.6 fL (36.4-46.3); Red Blood Count 5.17 M/uL (4.7-6.1); White Blood Count 6.79 K/uL (4.8-10.8)
[2018-12-02 15:40] LABS: Alanine Aminotransferase 61 U/L (12-78); Albumin Level 3.8 gm/dl (3.4-5.0); Aspartate Aminotransferase 96 U/L (15-37); BUN Creatinine Ratio 19.7 (10-20); Blood Urea Nitrogen 23 mg/dl (7-18); Calcium 8.5 mg/dl (8.5-10.1); Carbon Dioxide 23 mmol/L (21-32); Chloride 101 mmol/L (98-107); Creatinine Clr Calc Pharmacy 79.6 ml/min; Est GFR (African American) 90.5; Est GFR (Non-African American) 78.1; Glucose 93 mg/dl (70-99); Magnesium 2.5 mg/dl (1.8-2.4); Potassium 3.6 mmol/L (3.5-5.1); Sodium 132 mmol/L (136-145)
[2018-12-02 15:45] LABS: Albumin Globulin Ratio 1.1 (0.9-2); Alkaline Phosphatase 77 U/L (45-117); Bilirubin,Total 0.6 mg/dl (0.2-1); Globulin 3.5 gm/dl (2.5-4.0); Total Protein 7.3 gm/dl (6.4-8.2); Troponin I < 0.015 ng/ml (0-0.045)
[2018-12-02 15:49] LABS: Influenza B virus by PCR Neg for Influ B (Neg)
[2018-12-02 16:09] LABS: Partial Thromboplastin Ratio 1.2; Partial Thromboplastin Time 31.7 Seconds (21.0-31.0); Prothrombin Time 10.2 Seconds (9.0-12.0)
[2018-12-02] MEDS ORDERED: SODIUM CHLORIDE 0.9% 1000ML 1,000 ML IV ONE (16:52)
[2018-12-02] MEDS ORDERED: OSELTAMIVIR PHOSPHATE 75 MG CAP PO STA (16:52)
--- NOTE | 2018-12-02 18:55 | History & Physical Report ---
Date of Service December 02, 2018 Assessment & Plan (1) Flu: Tamiflu (2) COPD exacerbation: Hypoxic to 87% on 3L, no hx of home O2 use Hx of same requiring BIPAP Pt would like to avoid, ordered for bedside PRN Xopenex, prednisone 60mg TID IVF Sx likely related to COPD exacerbated by flu t/c CTA if ongoing (3) Hypothyroid: continue home meds (4) GERD (gastroesophageal reflux disease): continue home meds (5) Tobacco use disorder: Quit x2 weeks Declines nicotine patch (6) DVT prophylaxis: SCDs History of Present Illness Primary Care Provider: Jeane Grimaldo PA-C 38 y/o M c/o SOB. Pt states that he has been having worsening SOB for the last 2 days. He has been taking his nebs at home, but this has not helped. Today it was worse so he came to the ED. Pt states his SOB is with activity and at rest. No chest pain. His son has the flu. Pt did get a flu shot this year. Pt denies fever, abd pain, n/v LE pain or swelling. He has been constipated the last few days. He is hungry at present. Pt states he had a COPD exacerbation last year. He is not sure if he had flu or not. He describes tx with BIPAP being required. He feels his breathing is not as bad as that episode and would like to avoid BIPAP. He has never been intubated for his COPD. Pt did quit smoking about 2 weeks ago. Pt states he does not feel better s/p nebs, steroids in the ED. He does not feel worse. He states he is still SOB at rest. Allergies Allergy/AdvReac Type Severity Reaction Status Date / Time latex Allergy Severe HIVES/SHORT Verified 12/02/18 15:37 OF BREATH Latex2 -Systemic Allergic Allergy Severe SHORTNESS Uncoded 12/02/18 15:37 Response OF BREATH Home Medications Home Medications Medication Instructions Recorded Confirmed Type albuterol sulfate [Ventolin HFA] 2 puff INHALATION Q4H PRN 12/02/18 12/02/18 History budesonide-formoterol [Symbicort] 2 puff INHALATION BID 12/02/18 12/02/18 History ipratropium-albuterol 1 vial INHALATION Q4H PRN 12/02/18 12/02/18 History levothyroxine 200 mcg PO DAILY 12/02/18 12/02/18 History Past Med/Surg History Medical History COPD (chronic obstructive pulmonary disease) (Chronic) COPD exacerbation Social History Feels Safe at Home: Yes Smoking Status: Former smoker Smoking End Date: 2 weeks ago Hx Alcohol Use: No Hx Substance Use: No Preferred Language: Surinamese Review of Systems Pertinent positives and negatives reviewed in HPI--all others negative Physical Exam 2 Vital Signs (Past 24 Hours): Last Vital Signs Temp 37.3 C 12/02/18 14:40 Pulse 113 H 12/02/18 18:30 Resp 31 H 12/02/18 18:30 BP 108/52 L 12/02/18 18:30 Pulse Ox 90 12/02/18 18:30 Constitutional: WD/WN, vitals as above Eyes: normal visual puri by confrontation and + anicteric sclerae Neck: normal visual inspection and trachea midline Respiratory: + respiratory distress, + labored breathing and + uses accessory muscles; + abnormal respiratory effort Auscultation: + wheezes Cardiovascular: Rate/Rhythm: regular rhythm and + tachycardic Gastrointestinal (Abdomen): Inspection/Auscultation: abdomen not distended Percussion/Palpation: abdomen soft; abdomen nontender Musculoskeletal: Head/Neck/Chest: normocephalic and head atraumatic negative for edema, peripheral pulses intact Skin: no rashes, warm and dry Neurologic: awake; not confused Speech / Cognition: normal speech Psychiatric: A+Ox3, euthymic affect Results & Data Diagnostic Findings CXR neg for acute ECG Rhythm: sinus tachycardia Code Status & VTE Plan Code Status Full code VTE Prophylaxis Plan VTE Prophylaxis will be ordered: Yes
[2018-12-02 19:34] LABS: Appearance Urine Cloudy (Clear); Bacteria Urine Automated Negative (Negative); Color Urine Dark Yellow; Epithelial Cell Urine Auto >30 /lpf (0-5); Glucose Urine UA Negative (Negative); Ketones Urine 1+ (Negative); Leukocyte Esterase Urine Negative (Negative); Nitrite Urine Negative (Negative); Protein Urine 1+ (Negative); Specific Gravity Urine 1.031 (1.000-1.030); Urobilinogen Urine Negative (Negative)
[2018-12-02 19:39] LABS: Bilirubin Urine Negative (Negative); Ictotest Urine Negative (Negative)
[2018-12-02 19:58] LABS: Renal Epithelial Cells Urine 0-5 /lpf (0-5)
[2018-12-02 19:59] LABS: Amorphous Sediment Urine Present (None Prsent)
[2018-12-02] MEDS ORDERED: ONDANSETRON INJ 2 MG/ML 2 ML VIAL IV PRN (20:47)
[2018-12-02] MEDS ORDERED: ACETAMINOPHEN 325 MG TAB PO PRN (20:47)
[2018-12-02] MEDS ORDERED: ALBUTEROL HFA 8 GM INHALER INH PRN (20:47)
[2018-12-02] MEDS ORDERED: methylPREDNISolone 125 MG/2 ML VIAL IV STA (20:47)
[2018-12-02] MEDS ORDERED: MAGNESIUM HYDROXIDE SUSP 30 ML UDC PO PRN (20:47)
[2018-12-02] MEDS ORDERED: ALBUT/IPRATROP 3MG/0.5MG NEB 3 ML VIAL INH PRN (20:47)
[2018-12-02] MEDS ORDERED: PANTOprazole 40 MG TAB PO STA (20:54)
[2018-12-02] MEDS: LEVALBUTEROL 1.25MG/0.5ML NEB NEB SCH (21:19)
[2018-12-02] MEDS: BUDESONIDE/FORMOTEROL FUMARATE 160/4.5 60 PUFFS/INHALER INH SCH (21:42)
[2018-12-02] MEDS: SODIUM CHLORIDE 0.9% 1000ML 1,000 ML IV SCH (21:42)
[2018-12-02] MEDS: methylPREDNISolone 60 MG in SYRINGE 0 ML IV SCH (21:42)
[2018-12-02] MEDS: OSELTAMIVIR PHOSPHATE 75 MG CAP PO SCH (21:43)
[2018-12-03] MEDS: LEVALBUTEROL 1.25MG/0.5ML NEB NEB SCH ×4 (02:13→19:26)
[2018-12-03] MEDS: LEVOTHYROXINE SODIUM 200 MCG TABLET PO SCH (05:42)
[2018-12-03] MEDS: methylPREDNISolone 60 MG in SYRINGE 0 ML IV SCH ×3 (05:42→20:41)
[2018-12-03 09:17] LABS: BUN Creatinine Ratio 20.2 (10-20); Calcium 8.1 mg/dl (8.5-10.1); Creatinine Clr Calc Pharmacy 95.1 ml/min; Est GFR (African American) 114.9; Est GFR (Non-African American) 99.2; Potassium 4.2 mmol/L (3.5-5.1)
[2018-12-03] MEDS: BUDESONIDE/FORMOTEROL FUMARATE 160/4.5 60 PUFFS/INHALER INH SCH ×2 (09:21→20:41)
[2018-12-03] MEDS: OSELTAMIVIR PHOSPHATE 75 MG CAP PO SCH ×2 (09:23→20:42)
[2018-12-03] MEDS: SODIUM CHLORIDE 0.9% 1000ML 1,000 ML IV SCH (09:24)
--- NOTE | 2018-12-03 12:11 | Hospitalist Progress Note ---
Date of Service December 03, 2018 Assessment & Plan (1) Flu: (2) COPD exacerbation: (3) Hypothyroid: (4) GERD (gastroesophageal reflux disease): (5) Tobacco use disorder: (6) DVT prophylaxis: 38 y/o M admitted on December 02, 2018 because of hypoxic with SOB secondary to flu, COPD exacerbation, Acute respiratory failure, hypoxic, secondary to flu and COPD exacerbation pt condition improving, minimal elevated d-dimer in the emergency room at 500, I do not feel not need to have CT of chest for now Flu: Continue Tamiflu COPD exacerbation: Continue Xopenex, prednisone 60mg TID Discussed IVF, encourage oral intake Hypothyroid, GERD: continue home meds Tobacco use disorder: Quit x2 week, Declines nicotine patch Significant constipation for 3-4 days, will give Dulcolax DVT prophylaxis: SCDs plus Lovenox Encourage increase activity Subjective Still has cough, difficulty breathing, requiring oxygen, some wheezing, denies fever and chill Reports generalized weakness, No bowel movement for 3-4 days Review of Systems Constitutional: Positive weakness, or fatigue Respiratory: See HPI, Cardiac: No chest pain, No orthopnea, No PND, No claudication, No palpitations , Abdomen: No pain, No nausea, No vomiting, No diarrhea, No GI bleeding Musculoskeletal: No joint pain, No muscle pain, No swelling, No calf pain, No problem reported : No dysuria, No urinary frequency, No incontinence, No hematuria Neurologic: No paralysis, No weakness, No numbness/tingling, No vertigo, No balance problems Psychiatric: No depression symptoms, No anhedonism, No anxiety, No insomnia, No substance abuse Heme: No abnormal bleeding/bruising, No clotting problems, No swollen lymph nodes, No night sweats Skin: No rash, No itch, No new/changing skin lesions, No color change, No bleeding Physical Exam 2 Vital Signs (Past 24 Hours): Last Vital Signs Temp 37.1 C 12/03/18 11:47 Pulse 82 12/03/18 11:47 Resp 20 12/03/18 11:47 BP 106/69 12/03/18 11:47 Pulse Ox 90 12/03/18 11:47 Physical Exam: General Appearance: Mild pale, look tired, WD/WN, no apparent distress, Eyes: normal inspection, PERRL, EOMI, sclerae normal ENT: normal ENT inspection, hearing grossly normal, pharynx normal Neck: supple, no adenopathy, thyroid normal, no JVD, no carotid bruits, trachea midline Respiratory/Chest: chest non-tender, significant decreased breath sounds, sporadic rales and wheezing Cardiovascular: regular rate, rhythm, no JVD, no murmur Abdomen: normal bowel sounds, non tender, soft, no organomegaly, Extremities: normal range of motion, non-tender, normal inspection, no pedal edema, no calf tenderness, normal capillary refill , pelvis stable, joint has no limited range of motion, capillary refill is normal, no cyanosis clubbing Neurologic/Psychiatric: forest pathologist II-XII nml as tested, no motor/sensory deficits, alert, normal mood/affect, oriented x 3 Skin: normal color, warm/dry, no rash Lymphatic: no adenopathy Results & Data Laboratory Results Laboratory Results - last 24 hr 12/02/18 12/02/18 12/02/18 15:00 15:00 15:00 WBC 6.79 RBC 5.17 Hgb 16.0 Hct 44.9 MCV 86.8 MCH 30.9 MCHC 35.6 RDW Std Deviation 41.6 RDW Coeff of Berenice 13.0 Plt Count 169 MPV 9.7 Immature Gran % (Auto) 0.1 Neut % (Auto) 74.6 Lymph % (Auto) 13.3 [place] % (Auto) 11.9 Eos % (Auto) 0.0 Baso % (Auto) 0.1 Immature Gran # (Auto) 0.01 Neut # (Auto) 5.06 Lymph # (Auto) 0.90 L [place] # (Auto) 0.81 H Eos # (Auto) 0.00 Baso # (Auto) 0.01 PT Cancelled INR Cancelled APTT Cancelled PTT Ratio Cancelled Sodium 132 L Potassium 3.6 Chloride 101 Carbon Dioxide 23 Anion Gap 8.0 BUN 23 H Creatinine 1.17 Est Cr Clr Drug Dosing 79.6 Est GFR ( Amer) 90.5 Est GFR (Non-Af Amer) 78.1 BUN/Creatinine Ratio 19.7 Glucose 93 Calcium 8.5 Magnesium 2.5 H Total Bilirubin 0.6 AST 96 H ALT 61 Alkaline Phosphatase 77 Troponin I < 0.015 Total Protein 7.3 Albumin 3.8 Globulin 3.5 Albumin/Globulin Ratio 1.1 TSH Urine Color Urine Appearance Urine pH Ur Specific [place] Urine Protein Urine Glucose (UA) Urine Ketones Urine Blood Urine Nitrite Urine Bilirubin Urine Urobilinogen Ur Leukocyte Esterase Urine WBC (Auto) Urine RBC (Auto) U Hyaline Cast (Auto) U Epithel Cells (Auto) Urine Bacteria (Auto) Ur Renal Epithelial Cell Amorphous Sediment Urine Yeast Influenza Type A (PCR) Influenza Type B (PCR) 12/02/18 12/02/18 12/02/18 15:10 15:49 19:13 WBC RBC Hgb Hct MCV MCH MCHC RDW Std Deviation RDW Coeff of Berenice Plt Count MPV Immature Gran % (Auto) Neut % (Auto) Lymph % (Auto) [place] % (Auto) Eos % (Auto) Baso % (Auto) Immature Gran # (Auto) Neut # (Auto) Lymph # (Auto) [place] # (Auto) Eos # (Auto) Baso # (Auto) PT 10.2 INR 1.0 APTT 31.7 H PTT Ratio 1.2 Sodium Potassium Chloride Carbon Dioxide Anion Gap BUN Creatinine Est Cr Clr Drug Dosing Est GFR ( Amer) Est GFR (Non-Af Amer) BUN/Creatinine Ratio Glucose Calcium Magnesium Total Bilirubin AST ALT Alkaline Phosphatase Troponin I Total Protein Albumin Globulin Albumin/Globulin Ratio TSH Urine Color Dark Yellow Urine Appearance Cloudy H Urine pH 6.0 Ur Specific [place] 1.031 H Urine Protein 1+ H Urine Glucose (UA) Negative Urine Ketones 1+ H Urine Blood Negative Urine Nitrite Negative Urine Bilirubin Negative Urine Urobilinogen Negative Ur Leukocyte Esterase Negative Urine WBC (Auto) 1-5 Urine RBC (Auto) 0-4 U Hyaline Cast (Auto) 1-5 U Epithel Cells (Auto) >30 H Urine Bacteria (Auto) Negative Ur Renal Epithelial Cell 0-5 Amorphous Sediment Present H Urine Yeast Not Reportable Influenza Type A (PCR) Pos for Influ A A* Influenza Type B (PCR) Neg for Influ B 12/03/18 07:19 WBC RBC Hgb Hct MCV MCH MCHC RDW Std Deviation RDW Coeff of Berenice Plt Count MPV Immature Gran % (Auto) Neut % (Auto) Lymph % (Auto) [place] % (Auto) Eos % (Auto) Baso % (Auto) Immature Gran # (Auto) Neut # (Auto) Lymph # (Auto) [place] # (Auto) Eos # (Auto) Baso # (Auto) PT INR APTT PTT Ratio Sodium 135 L Potassium 4.2 D Chloride 106 Carbon Dioxide 24 Anion Gap 5.0 BUN 19 H Creatinine 0.96 Est Cr Clr Drug Dosing 95.1 Est GFR ( Amer) 114.9 Est GFR (Non-Af Amer) 99.2 BUN/Creatinine Ratio 20.2 H Glucose 154 H Calcium 8.1 L Magnesium Total Bilirubin AST ALT Alkaline Phosphatase Troponin I Total Protein Albumin Globulin Albumin/Globulin Ratio TSH 0.153 L Urine Color Urine Appearance Urine pH Ur Specific [place] Urine Protein Urine Glucose (UA) Urine Ketones Urine Blood Urine Nitrite Urine Bilirubin Urine Urobilinogen Ur Leukocyte Esterase Urine WBC (Auto) Urine RBC (Auto) U Hyaline Cast (Auto) U Epithel Cells (Auto) Urine Bacteria (Auto) Ur Renal Epithelial Cell Amorphous Sediment Urine Yeast Influenza Type A (PCR) Influenza Type B (PCR)
[2018-12-03] MEDS ORDERED: BISACODYL 5 MG TABEC PO ONE (12:18)
[2018-12-03] MEDS ORDERED: POLYETHYLENE (MIRALAX) 17 GM PACK PO PRN (12:19)
[2018-12-03] MEDS: PANTOprazole 40 MG TAB PO SCH (13:25)
[2018-12-04] MEDS: LEVALBUTEROL 1.25MG/0.5ML NEB NEB SCH ×4 (01:52→19:19)
[2018-12-04] MEDS: methylPREDNISolone 60 MG in SYRINGE 0 ML IV SCH ×2 (06:13→14:35)
[2018-12-04] MEDS: LEVOTHYROXINE SODIUM 200 MCG TABLET PO SCH (06:13)
[2018-12-04] MEDS: PANTOprazole 40 MG TAB PO SCH (08:21)
[2018-12-04] MEDS: BUDESONIDE/FORMOTEROL FUMARATE 160/4.5 60 PUFFS/INHALER INH SCH (08:21)
[2018-12-04] MEDS: OSELTAMIVIR PHOSPHATE 75 MG CAP PO SCH ×2 (08:21→19:37)
--- NOTE | 2018-12-11 10:16 | Discharge Summary ---
Date of Service December 04, 2018 Admission HPI Per Admitting Provider 38 y/o M c/o SOB. Pt states that he has been having worsening SOB for the last 2 days. He has been taking his nebs at home, but this has not helped. Today it was worse so he came to the ED. Pt states his SOB is with activity and at rest. No chest pain. His son has the flu. Pt did get a flu shot this year. Pt denies fever, abd pain, n/v LE pain or swelling. He has been constipated the last few days. He is hungry at present. Pt states he had a COPD exacerbation last year. He is not sure if he had flu or not. He describes tx with BIPAP being required. He feels his breathing is not as bad as that episode and would like to avoid BIPAP. He has never been intubated for his COPD. Pt did quit smoking about 2 weeks ago. Pt states he does not feel better s/p nebs, steroids in the ED. He does not feel worse. He states he is still SOB at rest. Principal Diagnosis flu which proveked a copd exacerbation Discharge Exam General Appearance: WD/WN, no apparent distress, off oxygen Eyes: normal inspection, PERRL, EOMI, sclerae normal ENT: normal ENT inspection, hearing grossly normal, pharynx normal Neck: supple, no adenopathy, thyroid normal, no JVD, no carotid bruits, trachea midline Respiratory/Chest: chest non-tender, significant decreased breath sounds, no rales or wheezing Cardiovascular: regular rate, rhythm, no JVD, no murmur Abdomen: normal bowel sounds, non tender, soft, no organomegaly, Extremities: normal range of motion, non-tender, normal inspection, no pedal edema, no calf tenderness, normal capillary refill , pelvis stable, joint has no limited range of motion, capillary refill is normal, no cyanosis clubbing 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 will continue patient on tamiflu for a 7 day course. Patient will also be on a steroid taper. (2) COPD exacerbation: Hypoxic to 87% on 3L, no hx of home O2 use Hx of same requiring BIPAP Pt would like to avoid, ordered for bedside PRN Xopenex, initailly prednisone 60mg TID IVF Sx likely related to COPD exacerbated by flu will discharge on prednisone taper (3) Hypothyroid: continue home meds (4) GERD (gastroesophageal reflux disease): continue home meds (5) Tobacco use disorder: Quit x2 weeks Declines nicotine patch (6) DVT prophylaxis: 38 y/o M admitted on December 02, 2018 because of hypoxic with SOB secondary to flu, COPD exacerbation, Acute respiratory failure, hypoxic, secondary to flu and COPD exacerbation pt condition improving, minimal elevated d-dimer in the emergency room at 500, I do not feel not need to have CT of chest for now Hypothyroid, GERD: continue home meds Tobacco use disorder: Quit x2 week, Declines nicotine patch Significant constipation for 3-4 days, will give Dulcolax DVT prophylaxis: SCDs plus Lovenox Encourage increase activity Total Time Total Time Spent Total Time Spent (In Minutes): 32 Total Time Includes: Examination of the Patient, Discharge Planning and Medication Reconciliation Discharge Plan Discharge Items Patient Disposition: Home - Self-Care Reason For Visit: COPD EXACERBATION,FLU Discharge Diagnosis: COPD/flu Condition: Fair Discharge Goals: Decrease discomfort and Increase independence Activity: Resume your previous activity Non-emergency contact: Primary Care Provider Call non-emergency contact if: you have any medication questions Follow-up/Referrals: Jeane Grimaldo PA-C [Primary Care Provider] - 12/10/18 10:15 am (Please, follow up with Jeane Grimaldo PA-C on SundayDecember 10 at 10:15 am. *This office is located in [address] of [facility] - big building next to this hospital. If you need to change this appointment, call the office at [phone].) Diet: Regular Addtl Provider Instructions: You were seen for flu. Your oxygen saturation appears to be doing well on room air. Will have you continue on flu medicine and steroids for next week. If your symptoms worsen or your SOB worsens please return to the hospital. Prescriptions: New oseltamivir [Tamiflu] 75 mg Capsule 75 mg PO BID Qty: 14 RF: 0 prednisone 10 mg tablet 10 mg PO UD Qty: 66 RF: 0 Continue ipratropium-albuterol 0.5 mg-3 mg(2.5 mg base)/3 mL solution for nebulization 1 vial Inhalation Q4H PRN (Reason: Shortness Of Breath) RF: 0 levothyroxine 200 mcg tablet 200 mcg PO DAILY RF: 0 albuterol sulfate [Ventolin HFA] 90 mcg/actuation Hfa Aerosol Inhaler 2 puff INHALATION Q4H PRN (Reason: Shortness Of Breath) RF: 0 budesonide-formoterol 160-4.5 mcg/actuation HFA aerosol inhaler 2 puff Inhalation BID RF: 0 Stand-Alone Forms: [facility] Discharge Orders: Discharge Order (Routine); Ordered 12/04/18 Ordered By: Pablo Hernandez Admission Data Admit Date/Time: 12/02/18 18:43 Attending Provider: Pablo Hernandez Admit Provider: Kimberly Coffey Primary Care Provider: Jeane Grimaldo Other Providers: Kimberly Coffey Service: Telemetry Other Interventions: Discharge Summary Assessment (RN) Last Done: 12/04/18 19:19 DC Date/Time DO NOT enter until pt leaves facility: 12/04/18 19:55
== END 2018-12-04 19:55 | disposition home or self-care (01) | DRG 190 ==
LOC: ED 14:34 → 2N 18:43 → SUATTDRO 18:43 → 2N 20:26